=== PATIENT | female | born 1960 | race Caucasian/White ===

== ENCOUNTER 2023-09-15 12:24 | Outpatient (OUT) | payer MEDICAID, SELFPAY ==
--- NOTE | 2023-09-15 12:28 | MR_ITS ---
The [address] [address] Patient Name: JHONY IYER MRN: [id number] date: 1960 Sex: F Assigned Patient Location: MRI Current Patient Location: MRI Accession/Order Number: [id number] Exam Date: 09/15/2023 12:45 Report Date: 09/15/2023 15:08 At the request of: CELESTE SANTOS Procedure: MR head/brain wo/w con EXAM: MR head/brain wo/w con CLINICAL INDICATION: multiple sclerosis G35 COMPARISON: MRI brain 10/13/2021. TECHNIQUE/PROTOCOL: Standard pre and postcontrast MS protocol brain MRI performed. CONTRAST: 15 mL of Dotarem. FINDINGS: Multiple nonenhancing supratentorial hyperintense T2/FLAIR periventricular and subcortical white matter foci have not substantially changed in size, number, or signal characteristics since 10/13/2021. Several of these demonstrates hypointense T1 signal. No new foci or interval corpus callosum volume loss. No restricted diffusion, extra-axial fluid collection, hydrocephalus, midline shift, or other mass effect. Intracranial flow voids are maintained. Unchanged mild to moderate symmetric global volume loss without lobar predominance. Commensurate ventricular system caliber prominence. No abnormal leptomeningeal or dural enhancement. Normal marrow signal. No soft tissue abnormalities. Paranasal sinuses and mastoid air cells are well-aerated. MR/MR head/brain wo/w con IMPRESSION: Multiple nonenhancing supratentorial hyperintense T2/FLAIR white matter foci, in keeping with history of multiple sclerosis, have not substantially changed since 10/13/2021. No new foci, restricted diffusion, or abnormal intracranial enhancement. Electronically authenticated by: SANDRA MCDONALD Date: 09/15/2023 15:08
--- NOTE | 2023-09-15 12:31 | MR_ITS ---
[address] [address] Patient Name: JHONY IYER MRN: [id number] date: 1960 Sex: F Assigned Patient Location: MRI Current Patient Location: MRI Accession/Order Number: [id number] Exam Date: 09/15/2023 12:45 Report Date: 09/15/2023 15:25 At the request of: CELESTE SANTOS Procedure: MR cervical spine wo/w con EXAM: MR cervical spine wo/w con CLINICAL INDICATION: multiple sclerosis G35 COMPARISON: MRI cervical spine 10/13/2021. TECHNIQUE/PROTOCOL: Standard protocol cervical spine pre and post contrast MRI performed. FINDINGS: Spinal Cord: Normal in caliber. The ill-defined scattered hyperintense T2/STIR signal in the cord from C2 to C5 has not substantially changed since 10/13/2021. No abnormal cord enhancement or discrete new cord signal abnormality. Epidural Hematoma: None. Alignment: Normal cervical spine alignment and craniocervical junction. Marrow Signal: Normal. Vertebral Body Heights: Maintained. Paraspinal Soft Tissues: Normal. Neck Soft Tissues: Normal. Spondylotic Changes: Multilevel spondylotic changes include diffuse disc desiccation and varying degrees of intervertebral disc height loss, osteophytic ridging, and facet/uncovertebral joint hypertrophy. C2-C3: No disc bulge or herniation. No high-grade spinal canal or foraminal narrowing. C3-C4: Disc osteophyte complex effaces the ventral thecal sac and flattens the ventral spinal cord surface. Moderate spinal canal narrowing. Advanced bilateral foraminal narrowing is contributed to by uncovertebral and facet joint hypertrophy. C4-C5: Slight disc osteophyte complex contacts the left ventral spinal cord surface. Mild spinal canal narrowing. Mild right and advanced left foraminal narrowing is contributed to by uncovertebral and facet joint hypertrophy. C5-C6: Disc osteophyte complex indents the ventral thecal sac. Mild spinal canal narrowing. Right foramen is patent. Mild left foraminal narrowing is contributed to by uncovertebral and facet joint hypertrophy. C6-C7: Slight disc osteophyte complex indents the ventral thecal sac. Mild spinal canal narrowing. Mild right and advanced left foraminal narrowing is contributed to by uncovertebral and facet joint hypertrophy. C7-T1: No disc bulge or herniation. No high-grade spinal canal or foraminal narrowing. MR/MR cervical spine wo/w con IMPRESSION: 1. The ill-defined scattered hyperintense T2/STIR signal in the cord from C2 to C5 has not substantially changed since 10/13/2021. No abnormal cord enhancement or discrete new cord signal abnormality. 2. Multilevel spondylotic changes without high-grade spinal canal narrowing at any cervical level. 3. Spinal canal narrowing is at most moderate at C3-C4. 4. Foraminal narrowing is advanced bilaterally at C3-C4 as well as on the left at C4-C5 and C6-C7, contributed to by uncovertebral and facet hypertrophy. Electronically authenticated by: SANDRA MCDONALD Date: 09/15/2023 15:25
[2023-09-15 12:49] LABS: Estimated GFR (African America >60 (>=60); Estimated GFR (Non-African Ame >60 (>=60)
== END 2023-09-15 12:25 | disposition home or self-care (01) ==
LOC: MRI 12:24
PROVIDERS: PCP Family Medicine; Visit Provider Nurse Practitioner Family
DX: G35 Multiple sclerosis (principal)
CPT/HCPCS: 36415; 70553; 72156; 82565; 84520; A9575

== ENCOUNTER 2023-10-13 10:20 | Emergency (ER) | payer OTHER, SELFPAY ==
[2023-10-13 10:25] VITALS: BP 142/80; PULSE 66; TEMP 36.4; O2SAT 99; BMI 25.7
--- NOTE | 2023-10-13 10:55 | ED_ITS ---
HPI HPI - General Adult General Chief complaint: Extremity Injury, Lower Stated complaint: LOWER EXTREMITY INJURY Time Seen by Provider: 10/13/23 10:24 Source: patient Mode of arrival: Wheelchair History of Present Illness HPI narrative: Patient presents to ED complaining of right lower extremity injury. She said on Wednesday evening she cut her lower extremity on a box. She put a dressing on it at home and wrapped it with an Kelvin bandage but she said sometimes it still bleeding and she was not sure if it needed stitches or anything else so she came in for evaluation.She has a history of MS and she does not ambulate. She uses a wheelchair. She has lower extremity lymphedema which is chronic.Other than the laceration evaluation she does not have any other complaints today. Related Data Previous Rx's ?Medication ?Instructions ?Recorded doxycycline hyclate 100 mg capsule 100 mg PO BID 7 days #14 caps 10/13/23 Allergies Allergy/AdvReac Type Severity Reaction Status Date / Time No Known Drug Allergies Allergy Verified 10/13/23 10:32 Opioid HPI Opioid Management Most Recent Opioid Data: No Data to Display Review of Systems ROS Status of ROS 10 or more systems reviewed and unremark able except as noted in history and below Exam Narrative Exam Narrative: General: alert, no acute distress Cardiovascular: regular rate and rhythm, normal peripheral perfusion. Respiratory: Lungs CTA, respirations non labored. Extremities: no deformity, no trauma. Neurological: oriented x 4, LOC appropriate for age. Patient has of lower extremity laceration on the right lower extremity at the ankle and the anterior medial portion.Bleeding slightly after the dressing was removed. Lower extremity edema which is chronic for her.Mild redness but no signs of major cellulitis. Constitutional Vital Signs, click to edit/add: Last Vital Signs Temp 97.6 F 10/13/23 10:25 Pulse 66 10/13/23 10:25 Resp 20 10/13/23 10:25 BP 142/80 H 10/13/23 10:25 Pulse Ox 99 10/13/23 10:25 O2 Del Method Room Air 10/13/23 10:25 Course Course Hospital Course: Dressing was removed. I had to use normal saline to wet the dressing to get it unstuck from the wound. New dressing was applied with a Vaseline gauze. Vital Signs Vital signs: Vital Signs Temperature 97.6 F 10/13/23 10:25 Pulse Rate 66 05/01/24 10:25 Respiratory Rate 20 10/13/23 10:25 Blood Pressure 142/80 H 10/13/23 10:25 Pulse Oximetry 99 10/13/23 10:25 Oxygen Delivery Method Room Air 10/13/23 10:25 Temperature 97.6 F 10/13/23 10:25 Pulse Rate 66 10/13/23 10:25 Respiratory Rate 20 10/13/23 10:25 Blood Pressure 142/80 H 10/13/23 10:25 Pulse Oximetry 99 10/13/23 10:25 Oxygen Delivery Method Room Air 10/13/23 10:25 Medical Decision Making MDM Narrative Medical decision making narrative: Patient has a laceration which is too old to repair with sutures. A new dressing was applied with Vaseline gauze and an Kelvin wrap. I will refer her on to wound care clinic for further management of her laceration.No evidence of acute cellulitis at this time but she is high risk with her lymphedema and MS history therefore I will send her home on prophylactic antibiotics. Differential Diagnosis Differential Diagnosis: Laceration skin tear cellulitis Medical Records Medical records reviewed: Yes I reviewed the patient's medical records Discharge Plan Discharge Stand Alone Forms: Portal Instructions Chief Complaint: Extremity Injury, Lower Clinical Impression: Skin tear Patient Disposition: Home, Self-Care Time of Disposition Decision: 10:58 Mode of Transportation: Private Vehicle Prescriptions / Home Meds: New doxycycline hyclate 100 mg capsule 100 mg PO BID 7 Days Qty: 14 0RF Print Language: Palestinian Instructions: Acute Wounds (ED) Referrals: ERASTO FAY [Primary Care Provider] - 1 week Robert Castelan [Physician] - As soon as possible
[2023-10-13] MEDS: SODIUM CHLORIDE 0.9% IRRIG SOLUTION 1,000 ML BOTTLE 1000 ML IRR (11:15)
== END 2023-10-13 11:20 | disposition home or self-care (01) ==
PROVIDERS: Emergency Provider Emergency Medicine; PCP Family Medicine
DX: S81.811A Laceration without foreign body, right lower leg, initial encounter (principal); W45.8XXA Other foreign body or object entering through skin, initial encounter; G35 Multiple sclerosis
CPT/HCPCS: 99283

== ENCOUNTER 2023-10-15 11:33 | Outpatient (OUT) | payer OTHER, SELFPAY ==
--- OUTSIDE RECORDS SUMMARY | 2023-10-15 11:55 | XMS_ITS | CCD ---
Author Organization [facility] Care Team Providers Care Mangle Tender Name Role Phone Mukesh Martínez Unavailable KIMO ROD Attending Unavailable KIMO ROD Admitting Unavailable ERASTO FAY Primary Care Unavailable [facility] [place] [place]OS Attending Unavailable [facility] [place] [place] Admitting Unavailable FLAXTON, DR EDDY Contreras Consulting Unavailable PEREZ ., DR OK Johnson Primary Care Unavailable MIS, DR RIOS Consulting Unavailable MIS, DR RIOS Consulting Unavailable [facility] [place] Admitting Unavailable PEREZ ., DR OK Johnson Primary Care Unavailable [facility] [place]OS Attending Unavailable JUAN, DR FERNANDO Rich Consulting Unavailable SAL Leal Attending Provider MD Erasto Fay Primary Care Provider Jennifer Leal Admitting Unavailable Jennifer Leal Attending Unavailable Erasto Fay Primary Care Unavailable Erasto Fay Attending Unavailable Erasto Fay Attending Unavailable Erasto Fay Attending Unavailable Erasto Fay Attending Unavailable Allergies Allergy Classification Reported Allergen(s) Allergy Type Date of Onset Reaction(s) Facility (2 sources) teriflunomide Drug Allergy 02-20-20 Unknown, [facility] (1 source) muscle relaxors not allowed Propensity to adverse reactions Unknown Sn[facility] Other (1 source) teriflunomide Drug Allergy 02-20-20 [facility] (1 source) No Known Medication Allergies; Translations: [No Known Medication Allergies] Propensity to adverse reactions (disorder) [facility] Medications Current Medications Medication Drug Class(es) Dates Sig (Normalized) Sig (Original) acetaminophen 325 mg oral tablet (1 source) Start: 02-22-2017 Acetaminophen (Tylenol) 325 mg Tablet Active 650 MG PO As Directed February 22, 2017 12:00am acetaminophen 325 mg / oxyCODONE hydrochloride 5 mg oral tablet (1 source) Opioid Agonist Start: 02-22-2017 Oxycodone-Acetamin ophen (Percocet) 5-325 mg Tablet Active 5 - 325 MG PO As Directed February 22, 2017 12:00am alendronic acid 70 mg oral tablet (1 source) Bisphosphonate take 1 tablet by mouth every week Alendronate Sodium 70 MG TAKE ONE TABLET BY MOUTH ONCE WEEKLY Oral for 84 Days Active amitriptyline hydrochloride 25 mg oral tablet (1 source) Tricyclic Antidepressant take 1 tablet by mouth every twenty-four hours Amitriptyline HCl 25 MG 1 tablet at bedtime Orally Once a day Active atropine sulfate 0.025 mg / diphenoxylate hydrochloride 2.5 mg oral tablet (1 source) Anticholinergic, Cholinergic Muscarinic Antagonist, Antidiarrheal Start: 02-22-2017 Diphenoxylate-Atro pine (Lomotil) 2.5-0.025 mg Tablet Active 2.5 MG PO As Directed February 22, 2017 12:00am 12 hr dalfampridine 10 mg extended release oral tablet (2 sources) Potassium Channel Ruiz Start: 02-22-2017 take 1 tablet by mouth every twelve hours Dalfampridine (Ampyra) 10 mg Tablet Extended Release 12 Hr Active 10 MG PO Every 12 hours at 1000 & 2200 February 22, 2017 12:00am take 1 tablet by mouth every twe lve hours Ampyra 10 MG 1 tablet Orally Twice a day Active diphenhydrAMINE hydrochloride 25 mg oral capsule (1 source) Histamine-1 Receptor Antagonist Start: 02-22-2017 Diphenhydramine Hcl (Benadryl) 25 mg Capsule Active 25 MG PO As Directed February 22, 2017 12:00am ergocalciferol 1.25 mg oral capsule (1 source) Provitamin D2 Compound Start: 02-22-2017 take 1 capsule by mouth every week Ergocalciferol (Vitamin D2) (Vitamin D2) 50,000 unit Capsule Active 77496 UNITS PO every week February 22, 2017 12:00am furosemide 20 mg oral tablet (2 sources) Loop Diuretic Start: 02-22-2017 take 20 mg by mouth once daily in the morning Furosemide Active 20 MG PO Every morning February 22, 2017 12:00am take 1 tablet by mouth every oth er day Lasix 20 mg 1 tablet Orally every other day for 90 day(s) Not-Taking levothyroxine sodium 0.075 mg oral tablet (1 source) l-Thyroxine take 1 tablet by mouth once daily in the morning Levothyroxine Sodium 75 MCG 1 tablet on an empty stomach in the morning Orally Once a day Active loperamide hydrochloride 2 mg oral tablet (1 source) Opioid Agonist take 1 tablet by mouth four times daily as needed Loperamide A-D 2 MG 1 tablet as needed Orally Four times a day Active 24 hr metoprolol succinate 25 mg extended release oral tablet (1 source) beta-Adrenergic Ruiz take 1 tablet by mouth every twenty-four hours Metoprolol Succinate ER 25 MG 1 tablet Orally Once a day Active omeprazole 20 mg delayed release oral capsule (1 source) Proton Pump Inhibitor Start: 02-23-20 17 take 20 mg by mouth once daily in the morning Omeprazole Active 20 MG PO Every morning February 22, 2017 12:00am potassium chloride 20 meq extended release oral tablet (1 source) take 1 tablet by mouth every twenty-four hours Potassium Chloride ER 20 MEQ 1 tablet with food Orally Once a day Active Super Calcium 600 + D 400 600-400 MG-UNIT (1 source) take 400-600 tablets by mouth twice daily Super Calcium 600 + D 400 600-400 MG-UNIT TAKE ONE TABLET BY MOUTH TWICE A DAY Oral for 90 Days Active valACYclovir 500 mg oral tablet (1 source) Herpesvirus Nucleoside Analog DNA Polymerase Inhibitor, Herpes Simplex Virus Nucleoside Analog DNA Polymerase Inhibitor, Herpes Zoster Virus Nucleoside Analog DNA Polymerase Inhibitor Start: 02-23-20 17 take 500 mg by mouth once daily in the morning Valacyclovir Active 500 MG PO Every morning February 22, 2017 12:00am Vitamin C 500 MG (1 source) take 1 tablet by mouth once daily Vitamin C 500 MG 1 tablet Orally Once a day Active Vitamin D3 25 MCG (1000 UT) (1 source) take 1 tablet by mouth once daily Vitamin D3 25 MCG (1000 UT) TAKE ONE TABLET BY MOUTH ONCE DAILY Oral for 90 Days Active Problems Problem Classification Problem Date Documented Da te Episodic/Chronic Multiple sclerosis (6 sources) Multiple sclerosis; Translations: [Multiple sclerosis] Onset: 10-17-2021 Resolved: 11-05-2021 Chronic Nutritional deficiencies (1 source) Vitamin D deficiency; Translations: [Vitamin D deficiency, unspecified] Chronic Spondylosis; intervertebral disc disorders; other back problems (2 sources) Cervical spondylosis without myelopathy; Translations: [Spondylosis without myelopathy or radiculopathy, cervical region] Onset: 11-05-2021 Resolved: 11-05-2021 Chronic Unclassified (1 source) Other malaise; Translations: [Other malaise] Onset: 12-08-2022 Results Test Name Value Interpretation Reference Range Facility RAD - MRI Reporton RAD - MRI Report [id number] #1.00TIFF [facility] RAD - MRI Report [id number] #1.00TIFF [facility] Consultation Noteon 09-02-19 Consultation Note [id number] #1.00TIFF [facility] Consultation Noteon 06-03-20 Consultation Note [id number] 5#1.00TIFF [facility] Consultation Noteon 04-29-20 Consultation Note [id number] 6#1.00TIFF [facility] Ambulatory Visit Summaryon 1 06-26-2022 Ambulatory Visit Summary TERESITA BAKER :1960 Visit Date:04/26/2023 Ambulatory Visit Instructions Your Diagnosis HTN (hypertension) Multiple sclerosis Nonsmoker Urge incontinence Wheelchair dependent Fecal incontinence Hypothyroid Your Care Team Attending Physician - Erasto Fay MD Primary Care Physician - Erasto Fay MD This Is Your Medications List alendronate (alendronate 70 mg Tab) atropine-diphenoxyla te (Lomotil 0.025 mg-2.5 mg Tab) levothyroxine (Synthroid 75 mcg Tab) metoprolol (metoprolol 25 mg ER Tab) Contact prescribing physician if questions or concerns cholecalciferol (cholecalciferol 2000 intl units oral capsule) dalfampridine (Ampyra) Procedures Performed Urodynamics (02/22/2018), Cystoscopy. Discharge Vitals Temperature (Temporal Artery) 36.5 ?C Heart Rate (Peripheral) 72 Respiratory Rate 16 Blood Pressure 118/70 Height 165.1 cm Height 65 in What to do next Scheduled Follow-Up Appointments Wednesday. 2023 10:00 AM EDT With: Caly DANIELS, Erasto Adam Where: [facility] Office/Clini c Noteon 04-26-2023 [facility] Office/Clinic Note HPI Staff Teresita is a 63 year old female presenting for 3 month follow up MS & htn Patient is here for follow up on hypertension. How often are you checking your blood pressure? ocasionally home health nurse will check it What are your average readings? normal _ Yearly BMP:09/14/22 _ due: refused History of Present Illness - Here for follow up. - Needs refills on meds. - No changes Review of Systems PHQ Score Initial Depression Screen Score: 0 SCORE Physical Exam Vitals & Measurements T: 36.5 ?C(Temporal Artery) HR: 72(Peripheral) RR: 16 BP: 118/70 SpO2: 99% HT: 65 in HT: 165.1 cm General: alert, no acute distress ENMT: oral mucosa moist, Cardiovascular: regular rate and rhythm, normal peripheral perfusion Respiratory: Lungs CTA, respirations non labored Extremities: no deformity, no trauma Neurological: oriented x 4, LOC appropriate for age, CN II-XII intact, speech normal, Minimal movement of B/L legs. Contracted R hand, Wheelchair bound Abdomen: Soft, Nontender, Non-distended, + BS Assessment/Plan 1. HTN (hypertension) (I10: Essential (primary) hypertension) - At goal. - No issues at this time. - Follow up 6 months Ordered: Body Mass Index (BMI) documented 3008F Current tobacco non-user 1036F Depression Screening Negative 3352F Influenza immunization status assessed 1030F Most recent diastolic blood pressure <80 mm Hg 3078F Systolic BP <130 mm Hg (Most Recent) 3074F 2. Multiple sclerosis (G35: Multiple sclerosis) - Stable. - Wheelchair bound - Following with RUBEN Ordered: Body Mass Index (BMI) documented 3008F Current tobacco non-user 1036F Depression Screening Negative 3352F Influenza immunization status assessed 1030F Most recent diastolic blood pressure <80 mm Hg 3078F Systolic BP <130 mm Hg (Most Recent) 3074F 3. Nonsmoker (Z78.9: Other specified health status) - Please continue to not smoke Ordered: Body Mass Index (BMI) documented 3008F Current tobacco non-user 1036F Depression Screening Negative 3352F Influenza immunization status assessed 1030F Most recent diastolic blood pressure <80 mm Hg 3078F Systolic BP <130 mm Hg (Most Recent) 3074F 4. Urge incontinence (N39.41: Urge incontinence) - Will do incontinence supplies at this time. 5. 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 Fecal incontinence (R15.9: Full incontinence of feces) - Will do supplies. - No issues at this time. 7. Hypothyroid (E03.9: Hypothyroidism, unspecified) - TSH is WNL at last labs. - NO symptoms at this time. - Will recheck in 6 months. Orders: alendronate, See Instructions, TAKE ONE TABLET BY MOUTH ONCE WEEKLY, # 12 EA, Refills(s) 0, Pharmacy: [facility], 165.1, cm, 04/26/23 9:00:00 EST, Height/Length Dosing atropine-diphenoxyla te, 1 tab(s), Oral, BID Diarrhea, 60 tab(s), Refill(s) 1, prn constipation, [facility], 165.1, cm, 04/26/23 9:00:00 EST, Height/Length Dosing levothyroxine, 75 mcg, Oral, Daily, # 90 tab(s), Refills(s) 1, Pharmacy: [facility], 165.1, cm, 04/26/23 9:00:00 EST, Height/Length Dosing metoprolol, 25 mg = 1 tab(s), Oral, Daily, # 90 tab(s), Refills(s) 1, Pharmacy: [facility], 165.1, cm, 04/26/23 9:00:00 EST, Height/Length Dosing Follow-up No qualifying data available Problem List/Past Medical History Ongoing Candidiasis of skin and nail Fecal incontinence H/O urethral stricture Herpes zoster History of recurrent UTIs HTN (hypertension) Hypothyroid Lymphedema Multiple sclerosis Neurogenic bladder Osteoporosis Sleep disorder Urge incontinence Vitamin D deficiency Wheelchair dependent Historical No qualifying data Procedure/Surgical History Urodynamics (02/22/2018), Cystoscopy. Medications alendronate 70 mg Tab, See Instructions Ampyra, 10 mg, Oral, BID cholecalciferol 2000 intl units oral capsule, 50 mcg= 1 cap(s), Oral, Daily Lomotil 0.025 mg-2.5 mg Tab, 1 tab(s), Oral, BID, PRN, 1 refills metoprolol 25 mg ER Tab, 25 mg= 1 tab(s), Oral, Daily, 1 refills Synthroid 75 mcg Tab, 75 mcg, Oral, Daily, 1 refills Allergies No Known Medication Allergies Social History Tobacco Former smoker, quit more than 30 days ago Tobacco Use:. Never Smokeless Tobacco Use:. Cigarettes, 04/26/2023 Family History Heart disease: Father. Hypertension: Mother. Stroke: Father. Immunizations Vaccine Date Status Comments SARS-CoV-2 mRNA (tokennethnameran 5y-11y) vac - Not Given Postpone due to refusal [facility] Comment on above: Result Comment: Elec tronically Signed By: Clay DANIELS, Erasto Adam\.br\Date and Time Signed: 04/26/23 09:21 EST Retail - Clinical Noteon Retail - Clinical Note [id number] #1.00TIFF [facility] Retail - Clinical Note [id number]# 1.00TIFF [facility] Interdisciplinary Note - Soc ial Workeron 04-05-2023 Interdisciplinary Note - Concrete Puddler This SW reached out to patient today to discuss her need for some resources and assistance. Per patient, she is in need of a CHARGING MACHINE OPERATOR but she was cut off by Medicaid and isn't able to get one. She states that she has had Medicaid since the and had been getting a CHARGING MACHINE OPERATOR but then it stopped. She is current with [facility] and her child welfare caseworker is Christiane Jimenez ([phone]). She states that Christiane is trying to find a CHARGING MACHINE OPERATOR for her at this time. SW tried to reach out to Christiane to see if there was anything she needed from the office in order to assist with arranging these services, however there was no answer and a voicemail was not able to be left. SW will remain available. [facility] Consultation Noteon 03-16-20 Consultation Note [id number]#1 .00CD:127 [facility] 2022 Home Health Records [id number] #1.00CD:127 [facility] Retail - Clinical Noteon Retail - Clinical Note [id number] #1.00CD:127 [facility] Consultation Noteon 01-19-20 Consultation Note [id number] #1.00CD:127 [facility] 2022 Home Health Records [id number] #1.00CD:127 [facility] Family Medicine Office/Clini c Noteon 12-31-2022 Family Medicine Office/Clinic Note Chief Complaint follow up MS HPI Staff Lo is a 62 year old female patient that is presenting to the office for a three month follow up for pain for MS Cannot weight the patient due to confined to wheelchair and cannot stand or walk Pain characteristics: Pain location: just sore cushion broke on her chair getting a bed sore in that area Intensity:12/21 Onset: has MS pain is constant Medication used: nothing anymore she basically ignores her pain questions/concerns: none Needs all her meds refilled except alendronate History of Present Illness Teresita Baker is a 62-year-old female who presents today for a follow-up evaluation. Her wheelchair seat broke and she has not called the office yet because her foot rest is breaking and the foam is not working all the time. Her nurse took her wheelchair out to wash it with a towel and it went all out. She has been sitting on her wheelchair for 6 to 7 days and she developed a bed sore. It is not scabbing over, but it is getting bigger and worse. She has a home health nurse and she does not think that she needs to get into wound care. Her nurse put a Band-Aid on it to dry it our a little bit. She can lay on her side and get off, but in the middle of the night, she still moves. As long as she can keep herself up, she is okay. Her butt area hurts when she sits a certain way. She put Neosporin on it a couple of days ago and wears a diaper on top of it most of the time. This morning she did not put a diaper on, just wearing a pad. She went to therapy. She was diagnosed with MS for 40 years. She has bilateral leg pitting edema and she pumps her legs every day. She wears her ALIDA hose. She has been trying to get a dentist to do surgery. She has broken teeth and she needs surgery. She was told that they cannot do it because she has MS. Review of Systems PHQ Score Initial Depression Screen Score: 0 Physical Exam Vitals & Measurements T: 36.6 ?C(Oral) HR: 68(Peripheral) RR: 14 BP: 124/72 SpO2: 96% HT: 65 in HT: 165.1 cm General: alert, no acute distress. Cardiovascular: regular rate and rhythm, normal peripheral perfusion. Extremities: no deformity, no trauma, +2 pitting edema bilaterally. Musculoskeletal: wheelchair bound. Neurological: oriented x 4, LOC appropriate for age, CN II-XII intact, motor strength equal & normal bilaterally, speech normal Assessment/Plan 1. Multiple sclerosis (G35: Multiple sclerosis) Patient is stable. No new issues at this time. Patient is following with neurology. Patient just finished with physical therapy. Discussed needs for wheelchair repair or getting a new wheelchair. Discussed how this helps her with mobility and that the smaller power ones works so that fits in her house. 2. Wheelchair dependent (Z99.3: Dependence on wheelchair) As above. 3. HTN (hypertension), benign (I10: Essential (primary) hypertension) Patient is at goal at this time. We will continue to monitor. 4. Urge incontinence (N39.41: Urge incontinence) No other issues at this time. As noted, we refilled medications today and we will keep the patient on an every 3 months to make sure that we are continuing to stay up on all of patient's care. Also reviewed labs and at this time, patient's labs are completely normal. Portions of this record may have been created with voice recognition artificial intelligence software, specifically [employer], [employer] and or [employer]. Substitutions may have occurred due to the inherent limitations of voice recognition and artificial intelligence software. Documentation services were performed after patient or guardian consented to allow [employer] to record this visit. RAYSHAWN market research specialist and provider reviewed before signing. RAYSHAWN: Gala Simmons Follow-up No qualifying data available Problem List/Past Medical History Ongoing Candidiasis of skin and nail Fecal incontinence H/O urethral stricture Herpes zoster History of recurrent UTIs HTN (hypertension) Hx of thyroid disease Hypothyroid Lymphedema Multiple sclerosis Neurogenic bladder Osteoporosis Sleep disorder Urge incontinence Vitamin D deficiency Wheelchair dependent Historical No qualifying data Procedure/Surgical History Urodynamics (02/22/2018), Cystoscopy. Medications alendronate 70 mg Tab, 70 mg= 1 tab(s), Oral, qWeek Ampyra, 10 mg, Oral, BID cholecalciferol 2000 intl units oral capsule, 50 mcg= 1 cap(s), Oral, Daily Lomotil 0.025 mg-2.5 mg Tab, 1 tab(s), Oral, BID, PRN, 1 refills metoprolol 25 mg ER Tab, 25 mg= 1 tab(s), Oral, Daily, 1 refills Synthroid 75 mcg Tab, 75 mcg, Oral, Daily, 1 refills Allergies No Known Medication Allergies Social History Tobacco Former smoker, quit more than 30 days ago Tobacco Use:. Never Smokeless Tobacco Use:. Cigarettes, 12/29/2022 Family History Heart disease: Father. Hypertension: Mother. Stroke: Father. Immunizations Vaccine Date Status (more content not included)... Normal [facility] Comment on above: Result Comment: Elec tronically Signed By: Erasto Fay MD\.br\Date and Time Signed: 12/31/22 15:18 EDT\.br\Electronically Co-Signed By: Gala Simmons.br\Date and Time Co-Signed: 12/29/22 14:55 EDT Retail - Clinical Noteon Retail - Clinical Note [id number] #1.00CD:127 Normal [facility] Ambulatory Visit Summaryon 0 12-29-2022 Ambulatory Visit Summary TERESITA BAKER :1960 Visit Date:12/29/2022 Ambulatory Visit Instructions Your Diagnosis Multiple sclerosis Wheelchair dependent HTN (hypertension), benign Urge incontinence Your Care Team Attending Physician - Erasto Fay MD Primary Care Physician - Erasto Fay MD This Is Your Medications List alendronate (alendronate 70 mg Tab) atropine-diphenoxyla te (Lomotil 0.025 mg-2.5 mg Tab) cholecalciferol (cholecalciferol 2000 intl units oral capsule) levothyroxine (Synthroid 75 mcg Tab) metoprolol (metoprolol 25 mg ER Tab) Contact prescribing physician if questions or concerns dalfampridine (Ampyra) Procedures Performed Urodynamics (02/22/2018), Cystoscopy. Discharge Vitals Temperature (Oral) 36.6 ?C Heart Rate (Peripheral) 68 Respiratory Rate 14 Blood Pressure 124/72 Height 165.1 cm Height 65 in What to do next Scheduled Follow-Up Appointments Wednesday 1:20 PM EDT With: Erasto Fay MD Where: [facility] [place] Normal [facility] Family Medicine Office/Clini c Noteon 12-29-2022 Family Medicine Office/Clinic Note Chief Complaint follow up MS HPI Staff Teresita is a 62 year old female patient that is presenting to the office for a three month follow up for pain for MS Cannot weight the patient due to confined to wheelchair and cannot stand or walk Pain characteristics: Pain location: just sore cushion broke on her chair getting a bed sore in that area Intensity:12/21 Onset: has MS pain is constant Medication used: nothing anymore she basically ignores her pain questions/concerns: none Needs all her meds refilled except alendronate History of Present Illness Teresita Baker is a 62-year-old female who presents today for a follow-up evaluation. Her wheelchair seat broke and she has not called the office yet because her foot rest is breaking and the foam is not working all the time. Her nurse took her wheelchair out to wash it with a towel and it went all out. She has been sitting on her wheelchair for 6 to 7 days and she developed a bed sore. It is not scabbing over, but it is getting bigger and worse. She has a home health nurse and she does not think that she needs to get into wound care. Her nurse put a Band-Aid on it to dry it our a little bit. She can lay on her side and get off, but in the middle of the night, she still moves. As long as she can keep herself up, she is okay. Her butt area hurts when she sits a certain way. She put Neosporin on it a couple of days ago and wears a diaper on top of it most of the time. This morning she did not put a diaper on, just wearing a pad. She went to therapy. She was diagnosed with MS for 40 years. She has bilateral leg pitting edema and she pumps her legs every day. She wears her ALIDA hose. She has been trying to get a dentist to do surgery. She has broken teeth and she needs surgery. She was told that they cannot do it because she has MS. Review of Systems PHQ Score Initial Depression Screen Score: 0 Physical Exam Vitals & Measurements T: 36.6 ?C(Oral) HR: 68(Peripheral) RR: 14 BP: 124/72 SpO2: 96% HT: 65 in HT: 165.1 cm General: alert, no acute distress. Cardiovascular: regular rate and rhythm, normal peripheral perfusion. Extremities: no deformity, no trauma, +2 pitting edema bilaterally. Musculoskeletal: wheelchair bound. Neurological: oriented x 4, LOC appropriate for age, CN II-XII intact, motor strength equal & normal bilaterally, speech normal Assessment/Plan 1. Multiple sclerosis (G35: Multiple sclerosis) Patient is stable. No new issues at this time. Patient is following with neurology. Patient just finished with physical therapy. Discussed needs for wheelchair repair or getting a new wheelchair. Discussed how this helps her with mobility and that the smaller power ones works so that fits in her house. 2. Wheelchair dependent (Z99.3: Dependence on wheelchair) As above. 3. HTN (hypertension), benign (I10: Essential (primary) hypertension) Patient is at goal at this time. We will continue to monitor. 4. Urge incontinence (N39.41: Urge incontinence) No other issues at this time. As noted, we refilled medications today and we will keep the patient on an every 3 months to make sure that we are continuing to stay up on all of patient's care. Also reviewed labs and at this time, patient's labs are completely normal. Portions of this record may have been created with voice recognition artificial intelligence software, specifically [employer], [employer] and or [employer]. Substitutions may have occurred due to the inherent limitations of voice recognition and artificial intelligence software. ATTESTATION: Documentation services were performed after patient or guardian consented to allow [employer] to record this visit. RAYSHAWN market research specialist and provider reviewed before signing. RAYSHAWN: Gala Simmons Follow-up No qualifying data available Problem List/Past Medical History Ongoing Candidiasis of skin and nail Fecal incontinence H/O urethral stricture Herpes zoster History of recurrent UTIs HTN (hypertension) Hx of thyroid disease Hypothyroid Lymphedema Multiple sclerosis Neurogenic bladder Osteoporosis Sleep disorder Urge incontinence Vitamin D deficiency Wheelchair dependent Historical No qualifying data Procedure/Surgical History Urodynamics (02/22/2018), Cystoscopy. Medications alendronate 70 mg Tab, 70 mg= 1 tab(s), Oral, qWeek Ampyra, 10 mg, Oral, BID cholecalciferol 2000 intl units oral capsule, 50 mcg= 1 cap(s), Oral, Daily Lomotil 0.025 mg-2.5 mg Tab, 1 tab(s), Oral, BID, PRN, 1 refills metoprolol 25 mg ER Tab, 25 mg= 1 tab(s), Oral, Daily, 1 refills Synthroid 75 mcg Tab, 75 mcg, Oral, Daily, 1 refills Allergies No Known Medication Allergies Social History Tobacco Former smoker, quit more than 30 days ago Tobacco Use:. Never Smokeless Tobacco Use:. Cigarettes, 12/29/2022 Family History Heart disease: Father. Hypertension: Mother. Stroke: Father. Immunizations Vaccine (more content not included)... Normal [facility] Comment on above: Result Comment: Elec tronically Signed By: Gala Simmons\.br\Date and Time Signed: 12/29/22 14:37 EDT\.br\Electronically Co-Signed By: Thiago MORALES, COAL PICKER-VEGETABLE FARMER, [facility] 2022 [facility] [id number] #[id number]:127 Normal [facility] MRI TSPINE WO W CONon 2021 MRI TSPINE WO W CON EXAMINATION: MRI TSPINE WO W CON HISTORY: Multiple sclerosis COMPARISON: No relevant comparison available. TECHNIQUE: Axial T1 and T2; Sagittal T1, T2, and STIR sequences. Images were performed without and with 16 ml Dotarem contrast. FINDINGS: CORD: Normal caliber, contour, and signal intensity. BONES: Normal alignment with no acute fracture, bone edema or spondylolisthesis. 20% anterior superior wedge compression fracture of T6. DISCS: Normal intervertebral disc PARASPINAL AREA: No visible mass. OTHER: Negative. No abnormal contrast enhancement. IMPRESSION: No focal or enhancing lesions identified within the thoracic spinal cord to suggest demyelination Electronically authenticated by: EDDY VIDES Date: 2021-10-17 17:03 Normal [facility] MRI BRAIN WO W CONon 022 MRI BRAIN WO W CON EXAMINATION: MRI BRAIN WO W CON HISTORY: Multiple sclerosis COMPARISON: MRI brain 05/31/2019 TECHNIQUE: A variety of imaging planes and parameters were utilized for visualization of suspected pathology. Images were performed without and with Dotarem contrast. FINDINGS: CEREBRUM: Multiple areas of increased T2 signal within the periventricular and subcortical deep white matter bilaterally, not appreciably changed. CEREBELLUM: No edema, hemorrhage, mass, acute infarction, or inappropriate atrophy. BRAINSTEM: No edema, hemorrhage, mass, acute infarction, or inappropriate atrophy. CSF SPACES: Ventricles, cisterns, and sulci are appropriate for age. No hydrocephalus, subarachnoid hemorrhage, or mass. SKULL: No mass or other significant visible lesion. SINUSES: Limited views demonstrate no significant mucosal thickening or fluid. ORBITS: Limited views are unremarkable. OTHER: No abnormal meningeal or parenchymal enhancement. IMPRESSION: 1. Multiple areas of T2 hyperintensity within the deep white matter consistent with a demyelinating process. No significant change since prior study. 2. No enhancement or restricted diffusion of these lesions to suggest active demyelination. Electronically authenticated by: FERNANDO MARTINEZ Date: 2021-10-13 15:00 Normal [facility] MRI CSPINE WO W CONon 2021 MRI CSPINE WO W CON EXAMINATION: MRI CSPINE WO W CON HISTORY: Multiple sclerosis COMPARISON: No relevant comparison available. TECHNIQUE: A variety of imaging planes and parameters were utilized for visualization of suspected pathology prior to and after intravenous Dotarem injection. FINDINGS: CRANIOCERVICAL AREA: Normal foramen magnum with no Chiari malformation. PARASPINAL AREA: Normal with no visible mass. BONES: No fracture, pars defect, or osseous lesion. CORD: Mild, abnormally increased T2 signal within the spinal cord extending from T2 to C6. CERVICAL DISC LEVELS: C2-C3: Early degenerative disc disease is present without focal protrusion or neural impingement. C3-C4: Marked central canal and moderate marked bilateral foramen narrowing. Moderate diffuse disc bulging and mild disc height reduction. Mild degenerative facet arthropathy. C4-C5: Marked central canal and moderate marked bilateral foramen narrowing. Moderate diffuse disc bulging eccentric to the left. Mild disc height reduction. Mild degenerative facet arthropathy. C5-C6: Moderate central canal and left foramen narrowing. Mild right foramen narrowing. Moderate diffuse disc bulging slightly eccentric to the left. Mild left facet arthropathy. C6-C7: Early degenerative disc disease is present without focal protrusion or neural impingement. C7-T1:. No significant disc/facet abnormality, spinal stenosis, or foraminal stenosis. IMPRESSION: 1. Abnormal signal within the cervical spinal cord from C2 to C6 which may be due to a demyelinating process or edema from cord compression given the multiple levels of moderate marked central canal narrowing. Electronically authenticated by: FERNANDO MARTINEZ Date: 2021-10-13 15:20 Normal [facility] Vital Signs Date Time Vital Sign Value Performing Clinician Anshul johnson 11-05-2021 12:00-0400 Body height 165.1 cm Mukesh Martínez Other [facility] Other 11-05-2021 12:00-0400 Body mass index (BMI) [Ratio] 26.62 kg/m2 Mukesh Martínez Other [facility] Other 11-05-2021 12:00-0400 Body weight 72.58 kg Mukesh Martínez Other [facility] Other Encounters Encounter Date Encounter Type Care Provider Facility Start: 10-19-2023 ambulatory Erasto Fay Facility :[facility] Start: 04-26-2023 End: 04-27-2023 ambulatory Erasto Fay Facility:[facility] Start: 03-30-2023 End: 03-31-2023 ambulatory Erasto Fay Facility:[facility] Start: 12-29-2022 End: 12-30-2022 ambulatory Erasto Fay Facility:[facility] Start: 12-08-2022 End: 12-08-2022 ambulatory Jennifer Leal Facility:[facility] Start: 12-08-2022 End: 12-08-2022 ambulatory MD Erasto Fay Work Phone: [facility] Work Phone: Start: 12-08-2022 End: 12-08-2022 Discharged Recurring MD Erasto Fay Work Phone: [facility] [address] Start: 09-30-2022 ambulatory KIMO ROD Facility :[facility] Start: 11-05-2021 End: 11-05-2021 ambulatory Mukesh Martínez Other [facility] Other Start: 11-05-2021 Office outpatient ne w 30 minutes Mukesh Martínez [facility] Start: 10-17-2021 End: 10-18-[address] DOCTOR PADRON Facility:[facility] Start: 10-13-2021 End: 10-14-[address] DOCTOR PADRON Facility:[facility] Payers Date Payer Category Payer Self-pay [id number] 1960 Unknown [id number] 2.16.84 [id number] 1960 Unknown [id number] 2.16.84 [id number] 1960 Unknown [id number] 2.16.84 [id number] 1960 Unknown [id number] 2.16.8 [id number] 1960 Unknown [id number] 2.16.8 [id number] 1960 Unknown [id number] 2.16.8 [id number] 1960 Unknown [id number] 2.16.8 [id number] 1957 Medicaid [id number] 2. 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 [facility] Other Evaluation note Note Date & Type Note Facility Evaluation note No assessment information availa [facility] Work Phone: History general Narrative - Reported Note Date & Type Note Facility History general Narrative - Reported Type Medical History multiple sclerosis Medical History [facility] Surgical History cyst removal Hospitalization History [facility] Other Summary Purpose Family History No Family History Records FoundNo Family History Records FoundNo Family History Records Found Advance Directives No Advanced Directives Records Found Advance Directive Response Recorded Date/ Time Advance Directives No February h2016 9:51am Chief Complaint and Reason for Visit Chief Complaint MK only;debility Additional Source Comments REASON FOR VISIT (unrecogniz ed section and content) Referred Jennifer May Joeflori rojelio [employer] INFORMATION SOURCE (unrecogn ized section and content) DATE CREATED AUTHOR 09/24/2022 [facility] DATE CREATED AUTHOR AUTHOR'S ORGANIZ ATION 12/21/2022 [facility] DATE CREATED AUTHOR AUTHOR'S ORGANIZ ATION 10/01/[address] [facility] Care Teams (unrecognized sec tion and content) Team Status: Active Member Role Status Dates Erasto Fay MD Primary Care Provider Active Team Status: Inactive Member Role Status Dates Jennifer Leal , COAL PICKER Attending Provider Active Erasto Fya MD Primary Care Provider Active Goals (unrecognized section and content) Goals may be documented in a n alternate section FOR RECORDS PERTAINING TO PATIENTS WHO ARE OR HAVE BEEN ENROLLED IN A CHEMICAL DEPENDENCY/SUBSTANCEABUSE PROGRAM, SOME INFORMATION MAY BE OMITTED. This clinical summary was aggregated from multiple sources. Caution should be exercised in using it in the provision of clinical care. This summary normalizes information from multiple sources, and as a consequence, information in this document may materially change the coding, format and clinical context of patient data. In addition, data may be omitted in some cases. CLINICAL DECISIONS SHOULD BE BASED ON THE PRIMARY CLINICAL RECORDS. [facility] [employer] [facility]. provides no warranty or guarantee of the accuracy or completeness of information in this document.
== END 2023-10-15 11:34 | disposition home or self-care (01) ==
LOC: WC 11:33
PROVIDERS: PCP Family Medicine; Visit Provider Podiatrist Foot & Ankle Surgery
DX: S81.801A Unspecified open wound, right lower leg, initial encounter (principal)
CPT/HCPCS: A6213; G0463

== ENCOUNTER 2023-11-01 11:46 | Outpatient (OUT) | payer OTHER, SELFPAY | END 2023-11-01 11:47 | disposition home or self-care (01) | LOC: WC 11:46 | PROVIDERS: PCP Family Medicine; Visit Provider Physician Assistant | DX: S81.801A Unspecified open wound, right lower leg, initial encounter (principal) | CPT/HCPCS: G0463 ==

== ENCOUNTER 2023-11-22 15:31 | Outpatient (OUT) | payer OTHER, SELFPAY | END 2023-11-22 15:32 | disposition home or self-care (01) | LOC: WC 15:31 | PROVIDERS: PCP Family Medicine; Visit Provider Physician Assistant | DX: S81.801A Unspecified open wound, right lower leg, initial encounter (principal) | CPT/HCPCS: A6213; G0463 ==

== ENCOUNTER 2023-12-13 16:00 | Outpatient (OUT) | payer OTHER, SELFPAY ==
--- OUTSIDE RECORDS SUMMARY | 2023-12-13 16:27 | XMS_ITS | CCD ---
Author Organization [facility] CliniSyga Care Team Providers Care Logistics Assistant Name Role Phone Mukesh Martínez Unavailable KIMO ROD Attending Unavailable KIMO ROD Admitting Unavailable ERASTO FAY Primary Care Unavailable [facility] [place] RIOS Attending Unavailable [facility] [place] RIOS Admitting Unavailable [place], DR EDDY Contreras Consulting Unavailable PEREZ ., DR OK Johnson Primary Care Unavailable MIS, DR RIOS Consulting Unavailable [facility] [place] RIOS Consulting Unavailable [facility] [place] DR RIOS Admitting Unavailable PEREZ ., DR [place] Johnson Primary Care Unavailable [facility] [place], DR RIOS Attending Unavailable ALEXJAMA, DR FERNANDO Rich Consulting Unavailable SAL Leal Attending Provider MD Erasto Fay Primary Care Provider Jennifer Leal Admitting Unavailable Jennifer Leal Attending Unavailable Erasto Fay Primary Care Unavailable Erasto Fay Attending Unavailable Erasto Fay Attending Unavailable Erasto Fay Attending Unavailable Erasto Fay Admitting Unavailable Erasto Fay Attending Unavailable Erasto Fay Attending Unavailable Erasto Fay Attending Unavailable Allergies Allergy Classification Reported Allergen(s) Allergy Type Date of Onset Reaction(s) Facility (2 sources) teriflunomide Drug Allergy 02-20-20 Unknown, [facility] (1 source) muscle relaxors not allowed Propensity to adverse reactions Unknown [facility] Other (1 source) teriflunomide Drug Allergy 02-20-20 [facility] Repository (1 source) No Known Medication Allergies; Translations: [No Known Medication Allergies] Propensity to adverse reactions (disorder) [facility] Repository Medications Current Medications Medication Drug Class(es) [...] D2) (Vitamin D2) 50,000 unit Capsule Active 77182 UNITS PO every week February 22, 2017 [...] Test Name Value Interpretation Reference Range Facility Consultation Noteon 11-15-19 Consultation Note [id number] #1.00TIFF Normal [facility] Ambulatory Visit Summaryon 0 10-19-2023 Ambulatory Visit Summary TERESITA BAKER :1960 Visit Date:10/19/2023 Ambulatory Visit Instructions Your Diagnosis HTN (hypertension) Multiple sclerosis Former smoker Hypothyroid Lymphedema Wheelchair dependent Fecal incontinence Your Care Team Attending Physician - Erasto Fay MD Primary Care Physician - Erasto Fay MD This Is Your Medications List alendronate (alendronate 70 mg Tab) atropine-diphenoxyla te (Lomotil 0.025 mg-2.5 mg Tab) levothyroxine (Synthroid 75 mcg Tab) metoprolol (metoprolol 25 mg ER Tab) [Image Removed: STOP]Stop taking these medications cholecalciferol (cholecalciferol 2000 intl units oral capsule) dalfampridine (Ampyra) Procedures Performed Urodynamics (02/22/2018), Cystoscopy. Discharge Vitals Temperature (Temporal Artery) 36.0 ?C Heart Rate (Peripheral) 62 Respiratory Rate 16 Blood Pressure 122/76 Height 165.1 cm Height 65 in What to do next Scheduled Follow-Up Appointments Wednesday 10:15 AM EDT With: Erasto Fay MD Where: [facility] [place] Normal [facility] CBC w/ Auto Diffon 4 Basophils/100 WBC (Bld) 0.7 % Normal 0.0-2.0 [facility] Comment on above: Performed By: #### 2 519633, 2730966, 8158638, 11441631, 46455085 ####[address] [address] Basophils/Leukocytes Auto (Bld) [Pure # fraction] 0.0 E9/L Normal 0.0-0.2 [facility] Comment on above: Performed By: #### 2 460487, 1047892, 3016722, 26274895, 59252958 ####[address] [address] Eosinophils (Bld) [#/Vol] 0.1 E9/L Normal 0.0-0.5 [facility] Comment on above: Performed By: #### 2 413116, 9962350, 6198467, 30597413, 17448285 ####[address] [address] Eosinophils/100 WBC (Bld) 2.5 % Normal 0.0-8.0 [facility] Comment on above: Performed By: #### 2 228177, 6912332, 5127005, 30244833, 48281525 ####[address] [address] Erythrocyte distribution width (RBC) [Ratio] 14.6 % High 10.9-14.2 [facility] Comment on above: Performed By: #### 2 232901, 4053138, 9513564, 66797777, 41871919 ####[address] [address] Hematocrit (Bld) [Volume fraction] 44.3 % Normal 34.0-46.0 [facility] Comment on above: Performed By: #### 2 045587, 5854627, 9820387, 07878261, 60614242 ####[address] [address] Hemoglobin (Bld) [Mass/Vol] 14.4 g/dL Normal 12.0-16.0 [facility] Comment on above: Performed By: #### 2 575894, 2866859, 7436110, 44817094, 76374525 ####[address] [address] Lymphocytes (Bld) [#/Vol] 1.0 E9/L Normal 1.0-4.0 [facility] Comment on above: Performed By: #### 2 457775, 5791715, 2541787, 33810542, 77366185 ####[place] [address] Lymphocytes/100 WBC (Bld) 18.4 % Normal 14.0-50.0 [facility] Comment on above: Performed By: #### 2 104885, 5643046, 8220109, 36878345, 58825710 ####[place] [address]57 MCH (RBC) [Entitic mass] 28.4 pg Normal 27.0-34.0 [facility] Comment on above: Performed By: #### 2 260604, 1049359, 4846207, 80764368, 00799931 ####[place] [address]57 MCHC (RBC) [Mass/Vol] 32.4 g/dL Normal 31.4-36.0 [facility] Comment on above: Performed By: #### 2 358179, 1264572, 0526148, 59731464, 25497731 ####[place] [address]57 MCV (RBC) [Entitic vol] 87.7 fL Normal 80.0-100.0 [facility] Comment on above: Performed By: #### 2 829453, 7514814, 1001176, 92251995, 94416041 ####[address] [address] Monocytes (Bld) [#/Vol] 0.4 E9/L Normal 0.2-1.0 [facility] Comment on above: Performed By: #### 2 896736, 1097925, 1409323, 12810137, 66332247 ####[facility] [address] [place] [address] Neutrophils (Bld) [#/Vol] 3.8 E9/L Normal 2.0-7.5 [facility] Comment on above: Performed By: #### 2 508054, 3089703, 3828290, 93881944, 86452529 ####[place] [address] [place] [address] Neutrophils/100 WBC (Bld) 71.4 % Normal 36.0-75.0 [facility] Comment on above: Performed By: #### 2 370162, 0332247, 3953264, 10297886, 23774233 ####[address] [address] Platelet mean volume (Bld) [Entitic vol] 7.7 fL Normal 6.4-10.8 [facility] Comment on above: Performed By: #### 2 502703, 6037828, 5390737, 32041159, 84633442 ####[address] [address] Platelets (Bld) [#/Vol] 277.0 E9/L Normal 150.0-500.0 [facility] Comment on above: Performed By: #### 2 960890, 5342404, 4434033, 87632288, 99764542 ####[address] [address] RBC (Bld) [#/Vol] 5.1 E12/L Normal 4.3-5.9 [facility] Comment on above: Performed By: #### 2 146117, 0806326, 4768347, 10739339, 00839459 ####[address] [address] WBC corrected for nucl RBC Auto (Bld) [#/Vol] 5.3 E9/L Normal 4.0-11.0 [facility] Comment on above: Performed By: #### 2 471857, 6944957, 5261350, 02527681, 07872093 ####[place] [address] [place] [address] CMPon 10-19-2023 Albumin [Mass/Vol] 4.5 g/dL Normal 3.3-5.0 [facility] Comment on above: Performed By: #### 2 757054, 8166423, 9578296, 79792990, 91734581 ####[address] [address] Albumin/Globulin (S) [Mass conc ratio] 1.5 Normal 1.1-2.2 [facility] Comment on above: Performed By: #### 2 137478, 6387016, 8783263, 33827318, 63507250 ####[address] [address] ALP [Catalytic activity/Vol] 98 Int._Unit/L Normal 21-98 [facility] Comment on above: Performed By: #### 2 760054, 3615771, 4869040, 96136021, 88299982 ####[address] [address] ALT No additional P-5'-P [Catalytic activity/Vol] 17 Int._Unit/L Normal 6-46 [facility] Comment on above: Performed By: #### 2 762185, 7790807, 8803570, 01412070, 61549502 ####[place] [address] [place] [address] Anion gap [Moles/Vol] 12 mmol/L Normal 6-16 [facility] Comment on above: Performed By: #### 2 954409, 3280037, 2723872, 20747014, 60074620 ####[place] [address] [place] [address] AST [Catalytic activity/Vol] 16 Int._Unit/L Normal 5-43 [facility] Comment on above: Performed By: #### 2 667409, 3493131, 7854129, 52531456, 38747359 ####[facility] [address] [place] [address] Bilirubin [Mass/Vol] 0.7 mg/dL Normal 0.0-1.1 [facility] Comment on above: Performed By: #### 2 724626, 4352358, 5643319, 32082170, 39612042 ####[facility] [address] [place] [address] Calcium [Mass/Vol] 9.6 mg/dL Normal 8.9-11.1 [facility] Comment on above: Performed By: #### 2 357708, 1839407, 1010661, 02047527, 36122938 ####[address] [address] Chloride [Moles/Vol] 106 mmol/L Normal 101-111 [facility] Comment on above: Performed By: #### 2 067005, 7796256, 1090656, 63702467, 85352447 ####[facility] [address] [place] [address] CO2 [Moles/Vol] 27 mmol/L Normal 21-31 [facility] Comment on above: Performed By: #### 2 461918, 1001869, 6790409, 11960219, 60128363 ####[place] [address] [place] [address] Creatinine [Mass/Vol] 0.8 mg/dL Normal 0.5-1.3 [facility] Comment on above: Performed By: #### 2 729168, 5233980, 1700606, 21723626, 47408967 ####[facility] [address] [place] [address] Globulin (S) [Mass/Vol] 3.0 g/dL Normal 1.4-4.0 [facility] Comment on above: Performed By: #### 2 165867, 5625496, 7988653, 23178706, 22095218 ####[address] [place] [address] Glucose [Mass/Vol] 89 mg/dL Normal 55-199 [facility] Comment on above: Performed By: #### 2 560597, 4506703, 1669954, 86115444, 47276022 ####[facility] [address] [place] [address] Potassium [Moles/Vol] 4.3 mmol/L Normal 3.5-5.3 [facility] Comment on above: Performed By: #### 2 856104, 0910030, 6883519, 61101057, 56056600 ####[facility] [address] [place] [address] Protein [Mass/Vol] 7.5 g/dL Normal 6.0-7.8 [facility] Comment on above: Performed By: #### 2 528432, 8380713, 2833383, 77984587, 55626036 ####[facility] [address] [place] [address] Sodium [Moles/Vol] 141 mmol/L Normal 135-145 [facility] Comment on above: Performed By: #### 2 818950, 3261587, 7368507, 92310699, 19437575 ####[facility] [address] [place] [address] Urea nitrogen [Mass/Vol] 20 mg/dL Normal 5-21 [facility] Comment on above: Performed By: #### 2 648496, 3357990, 2132840, 70350756, 71407508 ####[facility] [address] [place] [address] Urea nitrogen/Creatinine [Mass ratio] 25 No Units High 10-20 [facility] Comment on above: Performed By: #### 2 400711, 2725220, 7869697, 34851587, 09430011 ####[facility] [address] [place] [address] Family Medicine Office/Clini c Noteon 10-19-2023 Family Medicine Office/Clinic Note Chief Complaint 122 HPI Staff Teresita is a 63 year old female presenting for 6 month follow up HTN & MS Recent [facility] 10/12 cut lower right leg on a box. Has pain in that leg, doing dressing changes every other day . Needs checked today Patient wheelchair confined, cannot weight no BMI to chart Patient is here for follow up on hypertension. How often are you checking your blood pressure? Doesnt check BP at home What are your average readings? N/A, Not checking at home Yearly BMP: 09/14/22 questions/concerns: needs all her meds that she's taking refiled History of Present Illness - Pt is here for follow up. Has not been seen in 6 months. - Pt states she is doing well. - Had a skin abrasion. - No other concerns today. - Needs meds refilled. - Neuro is unsure if she has MS or another issue. Review of Systems PHQ Score Initial Depression Screen Score: 2 SCORE Physical Exam Vitals & Measurements T: 36.0 ?C(Temporal Artery) HR: 62(Peripheral) RR: 16 BP: 122/76 SpO2: 100% HT: 65 in HT: 165.1 cm General: alert, no acute distress ENMT: oral mucosa moist, Cardiovascular: regular rate and rhythm, normal peripheral perfusion Respiratory: Lungs CTA, respirations non labored Extremities: no deformity, no trauma Edema of both lower extremities. Wrapped. Neurological: oriented x 4, LOC appropriate for age, CN II-XII intact, Wheelchair mars, speech normal Abdomen: Soft, Nontender, Non-distended, + BS Assessment/Plan 1. HTN (hypertension) (I10: Essential (primary) hypertension) - BP well controlled. - No issues at this time. - Meds working well. - Will refill. Ordered: CBC w/ Auto Diff Comprehensive Metabolic Panel Current tobacco non-user 1036F Depression Screening Negative 3352F Lipid Panel Most recent diastolic blood pressure <80 mm Hg 3078F Systolic BP <130 mm Hg (Most Recent) 3074F TSH With T4fr Reflex 2. Multiple sclerosis (G35: Multiple sclerosis) - Stable. - Will review records - No concerns at this time. Ordered: CBC w/ Auto Diff Comprehensive Metabolic Panel Current tobacco non-user 1036F Depression Screening Negative 3352F Lipid Panel Most recent diastolic blood pressure <80 mm Hg 3078F Systolic BP <130 mm Hg (Most Recent) 3074F TSH With T4fr Reflex 3. Former smoker (Z87.891: Personal history of nicotine dependence) - Please continue to not smoke. Ordered: CBC w/ Auto Diff Comprehensive Metabolic Panel Current tobacco non-user 1036F Depression Screening Negative 3352F Lipid Panel Most recent diastolic blood pressure <80 mm Hg 3078F Systolic BP <130 mm Hg (Most Recent) 3074F TSH With T4fr Reflex 4. Hypothyroid (E03.9: Hypothyroidism, unspecified) - Will check labs today. - No issues. - Will adjust meds as needed Ordered: CBC w/ Auto Diff Comprehensive Metabolic Panel Lipid Panel TSH With T4fr Reflex 5. Lymphedema (I89.0: Lymphedema, not elsewhere classified) - Stable. - Continue to wrap your legs. - Dressing changed from the skin tear Ordered: CBC w/ Auto Diff Comprehensive Metabolic Panel Lipid Panel TSH With T4fr Reflex 6. 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 Ordered: CBC w/ Auto Diff Comprehensive Metabolic Panel Lipid Panel TSH With T4fr Reflex 7. Fecal incontinence (R15.9: Full incontinence of feces) - Will order supplies as needed. Ordered: CBC w/ Auto Diff Comprehensive Metabolic Panel Lipid Panel TSH With T4fr Reflex Orders: alendronate, See Instructions, TAKE ONE TABLET BY MOUTH ONCE WEEKLY, # 12 EA, Refills(s) 0, Pharmacy: [facility], 165.1, cm, 10/19/23 9:50:00 EDT, Height/Length Dosing atropine-diphenoxyla te, 1 tab(s), Oral, BID Diarrhea, 60 tab(s), Refill(s) 1, prn constipation, [facility], 165.1, cm, 10/19/23 9:50:00 EDT, Height/Length Dosing levothyroxine, 75 mcg, Oral, Daily, # 90 tab(s), Refills(s) 1, Pharmacy: [facility], 165.1, cm, 10/19/23 9:50:00 EDT, Height/Length Dosing metoprolol, 25 mg = 1 tab(s), Oral, Daily, # 90 tab(s), Refills(s) 1, Pharmacy: [facility], 165.1, cm, 10/19/23 9:50:00 EDT, Height/Length Dosing Follow-up No qualifying data available Problem List/Past Medical History Ongoing Candidiasis of skin and nail Fecal incontinence H/O urethral stricture Herpes zoster History of recurrent UTIs HTN (hypertension) Hypothyroid Lymphedema Multiple sclerosis Neurogenic bladder Osteoporosis Sleep disorder Urge incontinence Vitamin D deficiency Wheelchair dependent Historical No qualifying data Procedure/Surgical History Urodynamics (02/22/2018), Cystoscopy. Medications alendronate 70 mg Tab, See Instructions Lomotil 0.025 mg-2.5 mg Tab, 1 tab(s), Oral, BID, PRN, 1 refills metoprolol 25 mg ER Tab, 25 mg= 1 tab(s), Oral, Daily, 1 refills Synthroid 75 mcg Tab, 75 mcg, Oral, Daily, 1 refills Allergies No Known Medication Allergies Socia (more content not included)... Normal [facility] Comment on above: Result Comment: Elec tronically Signed By: Clay DANIELS, Erasto Turcios.br\Date and Time Signed: 10/19/23 10:27 EDT Lipid Panelon 10-19-2023 Cholesterol [Mass/Vol] 160 mg/dL Normal 120-200 [facility] Comment on above: Performed By: #### 2 964372, 2516721, 6029138, 80172094, 58292056 ####[facility] [address] [place] [address] Cholesterol in HDL [Mass/Vol] 45 mg/dL Invalid Interpretation Code [facility] Comment on above: Result Comment: '>= 60 LOW RISK' '<= 40 HIGH RISK' Performed By: #### 2 717220, 9243228, 0696748, 14149290, 52730373 ####[facility] [address] [place] [address] Cholesterol in LDL [Mass/Vol] 106 mg/dL Normal <=129 [facility] Comment on above: Performed By: #### 2 082885, 0615397, 9483857, 80124735, 43813788 ####[facility] [address] [place] [address] Cholesterol in VLDL [Mass/Vol] 15 mg/dL Normal 7-40 [facility] Comment on above: Performed By: #### 2 570496, 5009370, 3157389, 05820215, 16716769 ####[facility] [address] [place] [address] Triglyceride [Mass/Vol] 77 mg/dL Normal <=149 [facility] Comment on above: Performed By: #### 2 759028, 1082780, 9899043, 31175868, 26301307 ####[facility] [address] [place] [address] TSH With T4fr Reflexon 10-18 TSH Qn 1.59 m[IU]/L Normal 0.34-5.60 [facility] Comment on above: Performed By: #### 2 603925, 7645610, 1651434, 55205807, 79337152 ####[address] [address] [place] [address] eGFRon 10-19-2023 eGFR 83 mL/min/1.73 m2 Normal >=59 [facility] Comment on above: Order Comment: Order added by Discern Expert. Performed By: #### 2 942483, 7263911, 2411261, 54445807, 42335983 ####[address] [address] [place] [address] ED Note-Physicianon 10-18-19 ED Note-Physician [id number] #1.00TIFF Normal [facility] RAD - MRI Reporton RAD - MRI Report [id number] #1.00TIFF Normal [facility] RAD - MRI Report [id number] #1.00TIFF Normal [facility] Consultation Noteon 09-02-19 Consultation Note [id number] #1.00TIFF Normal [facility] Consultation Noteon 06-03-20 Consultation Note [id number]#1.00TIFF [facility] Consultation Noteon 04-29-20 Consultation Note [id number]#1.00TIFF [facility] Ambulatory Visit Summaryon 1 06-26-2022 Ambulatory Visit [...] Appointments Wednesday. 2023 10:00 AM EDT With: Erasto Fay MD Where: [facility] Family Medicine Office/Clini c Noteon 04-26-2023 Family Medicine Office/Clinic Note HPI Staff Teresita is a [...] WEEKLY, # 12 EA, Refills(s) 0, Pharmacy: [facility], 165.1, cm, 04/26/23 9:00:00 EST, Height/Length Dosing atropine-diphenoxyla te, 1 tab(s), Oral, BID Diarrhea, 60 tab(s), Refill(s) 1, prn constipation, [facility], 165.1, cm, 04/26/23 9:00:00 EST, Height/Length Dosing levothyroxine, 75 mcg, Oral, Daily, # 90 tab(s), Refills(s) 1, Pharmacy: [facility], 165.1, cm, 04/26/23 9:00:00 EST, Height/Length Dosing metoprolol, 25 mg = 1 tab(s), Oral, Daily, # 90 tab(s), Refills(s) 1, Pharmacy: [facility], 165.1, cm, 04/26/23 9:00:00 EST, Height/Length [...] Immunizations Vaccine Date Status Comments SARS-CoV-2 mRNA (celeste 5y-11y) vac - Not Given Postpone due to refusal [facility] Comment on above: Result Comment: Elec tronically Signed By: Clay DANIELS, Erasto Macias\Date and Time Signed: 04/26/23 09:21 EST Retail - Clinical Noteon Retail - Clinical Note [id number] #1.00TIFF [facility] Retail - Clinical Note [id number]# 1.00TIFF [facility] Interdisciplinary Note - Soc ial Workeron 04-05-2023 Interdisciplinary Note - Manager Competitive Intelligence This SW reached out to patient today to discuss her need for some resources and assistance. Per patient, she is in need of a COPY EDITOR but she was cut off by Medicaid and isn't able to get one. She states that she has had Medicaid since the and had been getting a COPY EDITOR but then it stopped. She is current with [facility] and her case consultant is Christiane Jimenez ([phone]). She states that Christiane is trying to find a COPY EDITOR for her at this time. SW tried to reach out to Christiane to see if there was anything she needed from the office in order to assist with arranging these services, however there was no answer and a voicemail was not able to be left. SW will remain available. [facility] Consultation Noteon 03-16-20 Consultation Note [id number]#1 .00CD:127 [facility] 2022 Home Health Records [id number] #1.00CD:127 [facility] Retail - Clinical Noteon Retail - Clinical Note [id number] #1.00CD:127 [facility] Consultation Noteon 01-19-20 Consultation Note [id number] #1.00CD:127 [facility] Record[facility] 2022 Home Health Records [id number] #1.00CD:127 Normal [facility] Family Medicine Office/Clini c Noteon 12-31-2022 Family [...] with voice recognition artificial intelligence software, specifically [employer], [employer] and or [employer]. Substitutions may have occurred due to the inherent limitations of voice recognition and artificial intelligence software. Documentation services were performed after patient or guardian consented to allow [employer] to record this visit. RAYSHAWN ancillary specialist and provider reviewed before signing. RAYSHAWN: [...] Vaccine Date Status (more content not included)... [facility] Comment on above: Result Comment: Elec tronically Signed By: Erasto Fay MD\.br\Date and Time Signed: 12/31/22 15:18 EDT\.br\Electronically Co-Signed By: Gala Simmons\.br\Date and Time Co-Signed: 12/29/22 14:55 EDT Retail - Clinical Noteon Retail - Clinical Note [id number] #1.00CD:127 [facility] Ambulatory Visit Summaryon 0 12-29-2022 Ambulatory Visit [...] Follow-Up Appointments Wednesday 1:20 PM EDT With: Clay DANIELS, Erasto Adam Where: [facility] Eddie Normal [facility] Office/Clini c Noteon 12-29-2022 Family Medicine Office/Clinic [...] with voice recognition artificial intelligence software, specifically [employer], [employer] and or [employer]. Substitutions may have occurred due to the inherent limitations of voice recognition and artificial intelligence software. ATTESTATION: Documentation services were performed after patient or guardian consented to allow [employer] to record this visit. RAYSHAWN ancillary specialist and provider reviewed before signing. RAYSHAWN: [...] Immunizations Vaccine (more content not included)... Normal [facility] Comment on above: Result Comment: Elec tronically Signed By: Gala Simmons\.br\Date and Time Signed: 12/29/22 14:37 EDT\.br\Electronically Co-Signed By: Thiago MORALES, LINTING MACHINE OPERATOR-NNAMDI, Leann Steward [facility] [id number] #[id number]:[id number] Normal [facility] MRI TSPINE WO W CONon 2021 MRI [...] by: EDDY VIDES Date: 2021-10-17 17:03 Normal [facility] MRI BRAIN WO W CONon 022 MRI [...] by: FERNANDO MARTINEZ Date: 2021-10-13 15:00 Normal [facility] MRI CSPINE WO W CONon 2021 MRI [...] by: FERNANDO MARTINEZ Date: 2021-10-13 15:[address] [facility] Vital Signs Date Time Vital Sign Value Performing Clinician Faci lity 11-05-2021 12:00-0400 Body height 165.1 cm Mukesh Martínez Other [facility] Other 11-05-2021 12:00-0400 Body mass index (BMI) [Ratio] 26.62 kg/m2 Mukesh Martínez Other [facility] Other 11-05-2021 12:00-0400 Body weight 72.58 kg Mukesh Martínez Other [facility] Other Encounters Encounter Date Encounter Type Care Provider Facility Start: 01-18-2024 ambulatory Erasto Fay Facility :[facility] Eddie Start: 10-19-2023 End: 10-19-2023 ambulatory Erasto Fay Facility:[facility] Start: 04-26-2023 End: 04-26-2023 ambulatory Erasto Fay Facility:[facility] Stephanie chen Start: 03-30-2023 End: 03-30-2023 ambulatory Erasto Fay Facility:[facility] Stephanie chen Start: 12-29-2022 End: 12-29-2022 ambulatory Erasto Fay Facility:[facility] Stephanie chen Start: 12-08-2022 End: 12-08-2022 ambulatory Jennifer Leal Facility:[facility] Start: 12-08-2022 End: 12-08-2022 ambulatory MD Erasto Fay Work Phone: [facility] Work Phone: Start: 12-08-2022 End: 12-08-2022 Discharged Recurring MD Erasto Fay Work Phone: [facility] [address] Start: 09-30-2022 ambulatory KIMO CARROLLMORE Facility :[facility] Start: 11-05-2021 End: 11-05-2021 ambulatory Mukesh Martínez Other [facility] [employer] Other Start: 11-05-2021 Office outpatient ne w 30 minutes Mukesh Martínez [facility] Start: 10-17-2021 End: 10-18-[address] DOCTOR PADRON Facility:[facility] Start: 10-13-2021 End: 10-14-[address] DOCTOR PADRON Facility:[facility] Payers Date Payer Category Payer Self-pay [id number] 1960 Unknown [id number] 2.16.84 [id number] 1960 Unknown [id number] 2.16.84 [id number] 1960 Unknown [id number] 2.16.84 [id number] 1960 Unknown [id number] 2.16.8 [id number] 1962 Unknown [id number] 2.16.8 [id number] 1962 Unknown [id number] 2.16.8 [id number] 1962 Unknown [id number] 2.16.8 [id number] 1962 Unknown [id number] 2.16.8 [id number] 1962 Unknown [id number] 2.16.8 [id number] 1957 Medicaid [id number] 2. [id number] Unknown [id number] 2.16.8 [id number] Social History Date Type Detail Facility Unknown if ever smoked [facility] Other Sex Assigned At Sex Assigned At Bir th [facility] Other Start: 1960 Sex Assigned At Female F 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 [facility] Other Evaluation note Note Date & Type Note Facility Evaluation note No assessment information availa [facility] Work Phone: History general Narrative - Reported Note Date & Type Note Facility History general Narrative - Reported Type Medical History multiple sclerosis Medical History [facility] Surgical History cyst removal Hospitalization History [facility] [employer] Other Summary Purpose Family History No Family History Records FoundNo Family History Records FoundNo Family History Records Found Advance Directives No Advanced Directives Records Found Advance Directive Response Recorded Date/ Time Advance Directives No February 9:51am Chief Complaint and Reason for Visit Chief Complaint MK only;debility Additional Source Comments REASON FOR VISIT (unrecogniz ed section and content) Referred Jennifer May Cervi rojelio [employer] INFORMATION SOURCE (unrecogn ized section and content) DATE CREATED AUTHOR 09/24/2022 [facility] DATE CREATED AUTHOR AUTHOR'S ORGANIZ ATION 12/21/[address] [facility] DATE CREATED AUTHOR AUTHOR'S ORGANIZ ATION 11/16/2023 [facility] Care Teams (unrecognized sec tion and content) Team Status: Active Member Role Status Dates Erasto Fay MD Primary Care Provider Active Team Status: Inactive Member Role Status Dates Jennifer Leal APRN Attending Provider Active Erasto Fay MD Primary Care Provider Active Goals (unrecognized [...] BE BASED ON THE PRIMARY CLINICAL RECORDS. [employer] provides no warranty or guarantee of the accuracy or completeness of information in this document.
== END 2023-12-13 16:01 | disposition home or self-care (01) ==
LOC: WC 16:00
PROVIDERS: PCP Family Medicine; Visit Provider Physician Assistant
DX: S81.801A Unspecified open wound, right lower leg, initial encounter (principal)
CPT/HCPCS: A6213; G0463

== ENCOUNTER 2024-01-03 16:00 | Outpatient (OUT) | payer OTHER, SELFPAY | END 2024-01-03 16:01 | disposition home or self-care (01) | LOC: WC 16:00 | PROVIDERS: PCP Family Medicine; Visit Provider Physician Assistant | DX: S81.801A Unspecified open wound, right lower leg, initial encounter (principal) | CPT/HCPCS: A6213; G0463 ==

== ENCOUNTER 2024-01-07 12:49 | Outpatient (RCR) | payer OTHER, SELFPAY | END 2024-02-13 16:30 | disposition home or self-care (01) | LOC: OT 12:49 | PROVIDERS: PCP Family Medicine; Visit Provider Podiatrist Foot & Ankle Surgery | DX: I87.2 Venous insufficiency (chronic) (peripheral) (principal); I89.0 Lymphedema, not elsewhere classified; S81.811D Laceration without foreign body, right lower leg, subsequent encounter | CPT/HCPCS: 97167; 97530 ==

== ENCOUNTER 2024-01-28 11:38 | Outpatient (OUT) | payer OTHER, SELFPAY ==
--- OUTSIDE RECORDS SUMMARY | 2024-01-28 11:52 | XMS_ITS | CCD ---
Author Organization [facility] CliniSytx Care Team Providers Care [employer] Business [employer] Consultant Name Role Phone Mukesh Martínez Unavailable KIMO ROD Attending Unavailable KIMO ROD Admitting Unavailable ERASTO FAY Primary Care Unavailable [facility], DR RIOS Attending Unavailable [facility], DR RIOS Admitting Unavailable [place], DR EDDY Contreras Consulting Unavailable PEREZ ., DR OK Johnson Primary Care Unavailable MIS, DR RIOS Consulting Unavailable MIS, DR RIOS Consulting Unavailable MIS, DR RIOS Admitting Unavailable PEREZ ., DR OK Johnson Primary Care Unavailable [facility], DR RIOS Attending Unavailable JUAN, DR FERNANDO Rich Consulting Unavailable SAL Leal Attending Provider MD Erasto Fay Primary Care Provider Jennifer Leal Admitting Unavailable Jennifer Leal Attending Unavailable Erasto Fay Primary Care Unavailable Erasto Fay Attending Unavailable Erasto Fay Attending Unavailable Erasto Fay Attending Unavailable Erasto Fay Admitting Unavailable Erasto Fay Attending Unavailable Erasto Fay Attending Unavailable Erasto Fay Attending Unavailable ALEXYS OSORIO Attending Unavailable ALEXYS OSORIO Attending Unavailable Allergies Allergy Classification Reported Allergen(s) Allergy Type Date of Onset Reaction(s) Facility (2 sources) teriflunomide Drug Allergy 02-20-20 Unknown, [facility] (1 source) muscle relaxors not allowed Propensity to adverse reactions Unknown [facility] Other (1 source) teriflunomide Drug Allergy 02-20-20 [facility] (1 source) No Known Medication Allergies; Translations: [No Known Medication Allergies] Propensity to adverse reactions (disorder) [facility] Repository Medications Current Medications Medication Drug [...] D2) (Vitamin D2) 50,000 unit Capsule Active 44677 UNITS PO every week February 22, 2017 12:00am furosemide 20 mg oral tablet (2 sources) Loop Diuretic Start: 02-22-2017 take 20 mg by mouth once daily in the morning Furosemide Active 20 MG PO Every morning February 22, 2017 12:00am take 1 tablet by mouth every oth day Lasix 20 mg 1 tablet Orally [...] Test Name Value Interpretation Reference Range Facility Provider Letteron 01-18-2024 Provider Letter Provider Letter January 18, 2024 TERESITA [address]ER [address] [place] [id number] : 1960 To Whom It May Concern, Above patient was seen in our office on 01/18/2024 at 10:15am. Comments: Please contact our office with any further questions. Sincerely, Family Medicine [address] [address] [facility] Consultation Noteon 11-15-19 Consultation Note [id number] #1.00TIFF [facility] Ambulatory Visit Summaryon 0 10-19-2023 Ambulatory Visit Summary TERESITA IYER :1960 Visit Date:10/19/2023 Ambulatory Visit Instructions Your [...] Follow-Up Appointments Wednesday 10:15 AM EDT With: Clay DANIELS, Erasto Adam Where: [facility] Family Medicine [place] Normal [facility] CBC w/ Auto Diffon 4 Basophils/100 WBC (Bld) 0.7 % Normal 0.0-2.0 [facility] Comment on above: Performed By: #### 2 760507, 1384382, 3685350, 41691727, 10266916 ####[address] [place] [address] Basophils/Leukocytes Auto (Bld) [Pure # fraction] 0.0 E9/L Normal 0.0-0.2 [facility] Comment on above: Performed By: #### 2 307991, 6190421, 8659339, 25997108, 35439572 ####[facility] [address] [place] [address] Eosinophils (Bld) [#/Vol] 0.1 E9/L Normal 0.0-0.5 [facility] Comment on above: Performed By: #### 2 084961, 7354951, 6497621, 04086481, 80887500 ####[address] [place] [address] Eosinophils/100 WBC (Bld) 2.5 % Normal 0.0-8.0 [facility] Comment on above: Performed By: #### 2 117464, 2228847, 7868728, 43134164, 91873867 ####[address] [address] Erythrocyte distribution width (RBC) [Ratio] 14.6 % High 10.9-14.2 [facility] Comment on above: Performed By: #### 2 421919, 9446826, 5156085, 74687292, 82021167 ####[facility] [address] [place] [address] Hematocrit (Bld) [Volume fraction] 44.3 % Normal 34.0-46.0 [facility] Comment on above: Performed By: #### 2 307650, 8025251, 4518964, 70687739, 85998878 ####[address] [address] Hemoglobin (Bld) [Mass/Vol] 14.4 g/dL Normal 12.0-16.0 [facility] Comment on above: Performed By: #### 2 903337, 7468164, 6908181, 43799019, 62342948 ####[address] [address] Lymphocytes (Bld) [#/Vol] 1.0 E9/L Normal 1.0-4.0 [facility] Comment on above: Performed By: #### 2 295977, 9752868, 6545762, 91211971, 91585829 ####[address] [address] Lymphocytes/100 WBC (Bld) 18.4 % Normal 14.0-50.0 [facility] Comment on above: Performed By: #### 2 075077, 0015914, 9404388, 02377789, 33260897 ####[address] [address] MCH (RBC) [Entitic mass] 28.4 pg Normal 27.0-34.0 [facility] Comment on above: Performed By: #### 2 094671, 0334807, 0034072, 24576059, 23097803 ####[address] [address] MCHC (RBC) [Mass/Vol] 32.4 g/dL Normal 31.4-36.0 [facility] Comment on above: Performed By: #### 2 264013, 5278665, 1540594, 20762442, 46529179 ####[address] [place] [address] MCV (RBC) [Entitic vol] 87.7 fL Normal 80.0-100.0 [facility] Comment on above: Performed By: #### 2 560444, 2186407, 8850850, 22665063, 96842329 ####[address] [address] Monocytes (Bld) [#/Vol] 0.4 E9/L Normal 0.2-1.0 [facility] Comment on above: Performed By: #### 2 040628, 2834132, 9819624, 06082195, 29570830 ####[address] [address] Neutrophils (Bld) [#/Vol] 3.8 E9/L Normal 2.0-7.5 [facility] Comment on above: Performed By: #### 2 232271, 1875480, 5296754, 75698411, 17541572 ####[address] [address] Neutrophils/100 WBC (Bld) 71.4 % Normal 36.0-75.0 [facility] Comment on above: Performed By: #### 2 110091, 3923918, 2859707, 15612939, 54882499 ####[address] [address] Platelet mean volume (Bld) [Entitic vol] 7.7 fL Normal 6.4-10.8 [facility] Comment on above: Performed By: #### 2 782084, 9183476, 4284893, 16446018, 66409648 ####[address] [address] Platelets (Bld) [#/Vol] 277.0 E9/L Normal 150.0-500.0 [facility] Comment on above: Performed By: #### 2 444304, 9963151, 2549157, 66720371, 22231014 ####[facility] [address] [place] [address] RBC (Bld) [#/Vol] 5.1 E12/L Normal 4.3-5.9 [facility] Comment on above: Performed By: #### 2 933069, 1861743, 4961277, 79979204, 40662664 ####[address] [address] WBC corrected for nucl RBC Auto (Bld) [#/Vol] 5.3 E9/L Normal 4.0-11.0 [facility] Comment on above: Performed By: #### 2 783323, 1033651, 8416844, 82240848, 74084925 ####[address] [address] CMPon 10-19-2023 Albumin [Mass/Vol] 4.5 g/dL Normal 3.3-5.0 [facility] Comment on above: Performed By: #### 2 990077, 9497557, 6865680, 65203812, 80330001 ####[address] [address] Albumin/Globulin (S) [Mass conc ratio] 1.5 Normal 1.1-2.2 [facility] Comment on above: Performed By: #### 2 764818, 2300643, 2516017, 37793101, 38003420 ####[address] [address] ALP [Catalytic activity/Vol] 98 Int._Unit/L Normal 21-98 [facility] Comment on above: Performed By: #### 2 935079, 0742532, 8765692, 13396275, 96646195 ####[address] [address] ALT No additional P-5'-P [Catalytic activity/Vol] 17 Int._Unit/L Normal 6-46 [facility] Comment on above: Performed By: #### 2 942005, 3245898, 1778688, 41643936, 72368140 ####[facility] [address] [place] [address] Anion gap [Moles/Vol] 12 mmol/L Normal 6-16 [facility] Comment on above: Performed By: #### 2 060496, 2695966, 2835047, 44001943, 91793484 ####[facility] [address] [place] [address] AST [Catalytic activity/Vol] 16 Int._Unit/L Normal 5-43 [facility] Comment on above: Performed By: #### 2 589778, 6028600, 3528206, 13799353, 51152868 ####[facility] [address] [place] [address] Bilirubin [Mass/Vol] 0.7 mg/dL Normal 0.0-1.1 [facility] Comment on above: Performed By: #### 2 953254, 9059220, 8192728, 97090493, 20580741 ####[facility] [address] [place] [address] Calcium [Mass/Vol] 9.6 mg/dL Normal 8.9-11.1 [facility] Comment on above: Performed By: #### 2 002010, 4120358, 9738799, 13905578, 41377989 ####[facility] [address] [place] [address] Chloride [Moles/Vol] 106 mmol/L Normal 101-111 [facility] Comment on above: Performed By: #### 2 322004, 9957201, 1091216, 72685219, 86281719 ####[facility] [address] [place] [address] CO2 [Moles/Vol] 27 mmol/L Normal 21-31 [facility] Comment on above: Performed By: #### 2 093850, 1033365, 9287578, 85123709, 02826380 ####[facility] [address] [place] [address] Creatinine [Mass/Vol] 0.8 mg/dL Normal 0.5-1.3 [facility] Comment on above: Performed By: #### 2 017373, 3624517, 7253163, 71635556, 99919179 ####[facility] [address] [place] [address] Globulin (S) [Mass/Vol] 3.0 g/dL Normal 1.4-4.0 [facility] Comment on above: Performed By: #### 2 808516, 6341592, 5104104, 92470801, 06232919 ####[facility] [address] [place] [address] Glucose [Mass/Vol] 89 mg/dL Normal 55-199 [facility] Comment on above: Performed By: #### 2 204782, 5809107, 9420944, 89914033, 06125157 ####[facility] [address] [place] [address] Potassium [Moles/Vol] 4.3 mmol/L Normal 3.5-5.3 [facility] Comment on above: Performed By: #### 2 167636, 9438653, 8986441, 92197197, 15645927 ####[facility] [address] [place] [address] Protein [Mass/Vol] 7.5 g/dL Normal 6.0-7.8 [facility] Comment on above: Performed By: #### 2 986637, 5232979, 1245810, 72239646, 66687961 ####[facility] [address] [place] [address] Sodium [Moles/Vol] 141 mmol/L Normal 135-145 [facility] Comment on above: Performed By: #### 2 787851, 4853005, 0794302, 60915110, 50226575 ####[facility] [address] [place] [address] Urea nitrogen [Mass/Vol] 20 mg/dL Normal 5-21 [facility] Comment on above: Performed By: #### 2 171599, 6761629, 5378029, 17824883, 04427001 ####[facility] [address] [place] [address] Urea nitrogen/Creatinine [Mass ratio] 25 No Units High 10-20 [facility] Comment on above: Performed By: #### 2 364652, 7449493, 9082913, 35534467, 92133888 ####[facility] [address] [place] [address] Family Medicine Office/Clini c Noteon 10-19-2023 Family Medicine Office/Clinic Note Chief Complaint 122 HPI Staff Teresita is a 63 year old female presenting for 6 month follow up HTN & MS Recent [facility] 10/12 cut lower right leg on [...] WEEKLY, # 12 EA, Refills(s) 0, Pharmacy: [facility], 165.1, cm, 10/19/23 9:50:00 EDT, Height/Length Dosing atropine-diphenoxyla te, 1 tab(s), Oral, BID Diarrhea, 60 tab(s), Refill(s) 1, prn constipation, [facility], 165.1, cm, 10/19/23 9:50:00 EDT, Height/Length Dosing levothyroxine, 75 mcg, Oral, Daily, # 90 tab(s), Refills(s) 1, Pharmacy: [facility], 165.1, cm, 10/19/23 9:50:00 EDT, Height/Length Dosing metoprolol, 25 mg = 1 tab(s), Oral, Daily, # 90 tab(s), Refills(s) 1, Pharmacy: [facility], 165.1, cm, 10/19/23 9:50:00 [...] Allergies Socia (more content not included)... Normal [facility] Comment on above: Result Comment: Elec tronically Signed By: Clay DANIELS, Eratso Turcios.br\Date and Time Signed: 10/19/23 10:27 EDT Lipid Panelon 10-19-2023 Cholesterol [Mass/Vol] 160 mg/dL Normal 120-200 [facility] Comment on above: Performed By: #### 2 536190, 4830372, 5216094, 41348829, 31768589 ####[facility] [address] [place] [address] Cholesterol in HDL [Mass/Vol] 45 mg/dL Invalid Interpretation Code [facility] Comment on above: Result Comment: '>= 60 LOW RISK' '<= 40 HIGH RISK' Performed By: #### 2 837830, 3807353, 6555551, 77145709, 66646424 ####[facility] [address] [place] [address] Cholesterol in LDL [Mass/Vol] 106 mg/dL Normal <=129 [facility] Comment on above: Performed By: #### 2 211800, 1359655, 3369982, 47759113, 60645806 ####[facility] [address] [place] [address] Cholesterol in VLDL [Mass/Vol] 15 mg/dL Normal 7-40 [facility] Comment on above: Performed By: #### 2 131813, 2688516, 4780346, 84688978, 17367656 ####[address] [place] [address] Triglyceride [Mass/Vol] 77 mg/dL Normal <=149 [facility] Comment on above: Performed By: #### 2 783242, 8481379, 8377263, 64560871, 77900059 ####[address] [place] [address] TSH With T4fr Reflexon 10-18 TSH Qn 1.59 m[IU]/L Normal 0.34-5.60 [facility] Comment on above: Performed By: #### 2 932893, 5636632, 1736719, 51946781, 27705858 ####[address] [place] [address] eGFRon 10-19-2023 eGFR 83 mL/min/1.73 m2 Normal >=59 [facility] Comment on above: Order Comment: Order added by Discern Expert. Performed By: #### 2 857884, 2310778, 0938489, 13307934, 09962291 ####[facility] [address] [place] [address] ED Note-Physicianon 10-18-19 ED Note-Physician [id number] #1.00TIFF Normal [facility] RAD - MRI Reporton RAD - MRI Report [id number] #1.00TIFF Normal [facility] RAD - MRI Report [id number] #1.00TIFF Normal [facility] Consultation Noteon 09-02-19 24 Consultation Note [id number] #1.00TIFF Normal [facility] Consultation Noteon 06-03-20 Consultation Note [id number]#1.00TIFF Normal [facility] Consultation Noteon 04-29-20 Consultation Note [id number]#1.00TIFF [facility] Ambulatory Visit Summaryon 1 06-26-2022 Ambulatory Visit Summary TERESITA IYER :1960 Visit Date:04/26/2023 Ambulatory Visit Instructions Your [...] to do next Scheduled Follow-Up Appointments Wednesday 10:00 AM EDT With: Erasto Fay MD Where: [facility] Eddie Normal [facility] Medicine Office/Clini c Noteon 04-26-2023 Family Medicine [...] WEEKLY, # 12 EA, Refills(s) 0, Pharmacy: [facility], 165.1, cm, 04/26/23 9:00:00 EST, Height/Length Dosing atropine-diphenoxyla te, 1 tab(s), Oral, BID Diarrhea, 60 tab(s), Refill(s) 1, prn constipation, [facility], 165.1, cm, 04/26/23 9:00:00 EST, Height/Length Dosing levothyroxine, 75 mcg, Oral, Daily, # 90 tab(s), Refills(s) 1, Pharmacy: [facility], 165.1, cm, 04/26/23 9:00:00 EST, Height/Length Dosing metoprolol, 25 mg = 1 tab(s), Oral, Daily, # 90 tab(s), Refills(s) 1, Pharmacy: [facility], 165.1, cm, 04/26/23 9:00:00 EST, Height/Length [...] Immunizations Vaccine Date Status Comments SARS-CoV-2 mRNA (tozinameran 5y-11y) vac - Not Given Postpone due to refusal [facility] Comment on above: Result Comment: Elec tronically Signed By: Clay DANIELS, Erasto Turcios.br\Date and Time Signed: 04/26/23 09:21 EST Retail - Clinical Noteon Retail - Clinical Note [id number] #1.00TIFF [facility] Retail - Clinical Note [id number]# 1.00TIFF [facility] Interdisciplinary Note - Soc ial Workeron 04-05-2023 Interdisciplinary Note - Web Production Artist This SW reached out to patient today to discuss her need for some resources and assistance. Per patient, she is in need of a MATERIAL HANDLING WAREHOUSE SUPERVISOR but she was cut off by Medicaid and isn't able to get one. She states that she has had Medicaid since the and had been getting a MATERIAL HANDLING WAREHOUSE SUPERVISOR but then it stopped. She is current with [facility] and her showcase maker is Christiane Jimenez ([phone]). She states that Christiane is trying to find a MATERIAL HANDLING WAREHOUSE SUPERVISOR for her at this time. SW tried to reach out to Christiane to see if there was anything she needed from the office in order to assist with arranging these services, however there was no answer and a voicemail was not able to be left. SW will remain available. [facility] Consultation Noteon 03-16-20 Consultation Note [id number]#1 .00CD:127 Normal [facility] Home Health Recordson 2022 Home Health Records [id number] #1.00CD:127 Normal [facility] MRI TSPINE WO W CONon 2021 [...] by: EDDY VIDES Date: 2021-10-17 17:03 Normal [facility] MRI BRAIN WO W CONon 022 [...] by: FERNANDO MARTINEZ Date: 2021-10-13 15:00 Normal [facility] MRI CSPINE WO W CONon 2021 [facility] CON EXAMINATION: MRI HENRI YEBOAH W CON HISTORY: Multiple sclerosis COMPARISON: No [...] by: FERNANDO MARTINEZ Date: 2021-10-13 15:20 Normal [facility] Vital Signs Date Time Vital Sign Value Performing Clinician Colbyi alex 11-05-2021 12:00-0400 Body height 165.1 cm Mukesh Martínez Other [facility] Other 11-05-2021 12:00-0400 Body mass index (BMI) [Ratio] 26.62 kg/m2 Mukesh Martínez Other [facility] Other 11-05-2021 12:00-0400 Body weight 72.58 kg Mukesh Martínez Other [facility] Other Encounters Encounter Date Encounter Type Care Provider Facility Start: 04-17-2024 ambulatory Erasto Fay Facility : [facility] Start: 01-20-2024 End: 01-20-2024 ambulatory ALEXYS JO Not Available Start: 01-18-2024 End: 01-18-2024 ambulatory Erasto Fay Facility:[facility] Stephanie gustavo Start: 11-11-2023 End: 11-11-2023 ambulatory ALEXYS OSORIO Not Available Start: 10-19-2023 End: 10-19-2023 ambulatory Erasto Fay Facility:[facility] Start: 04-26-2023 End: 04-26-2023 ambulatory Erasto Fay Facility:[facility] Randall gustavo Start: 03-30-2023 End: 03-30-2023 ambulatory Erasto Fay Facility:[facility] Stephanie gustavo Start: 12-08-2022 End: 12-08-2022 ambulatory Jennifer Leal Facility:[facility] Start: 12-08-2022 End: 12-08-2022 ambulatory MD Erasto Fay Work Phone: [facility] Work Phone: Start: 12-08-2022 End: 12-08-2022 Discharged Recurring MD Erasto Fay Work Phone: [facility]-Physical [facility] [address] Start: 09-30-2022 ambulatory KIMO ROD Facility :[facility] Start: 11-05-2021 End: 11-05-2021 ambulatory Mukesh Martínez Other [employer] Other Start: 11-05-2021 Office outpatient ne w 30 minutes Mukesh Martínez [facility] Start: 10-17-2021 End: 10-18-[address] DOCTOR PADRON Facility:[facility] Start: 10-13-2021 End: 10-14-[address] DOCTOR PADRON Facility:[facility] Payers Date Payer Category Payer Self-pay [id number] 1960 Unknown [id number] 2.16.84 [id number] 1960 Unknown [id number] 2.16.84 0.1.584108.3.579.2.593 1960 Unknown [id number] 2.16.84 0.1.665897.3.579.2.593 1960 Unknown [id number] 2.16.8 40.1.583126.3.579.2.727 1960 Unknown [id number] 2.16.8 40.1.732909.3.579.2.727 1960 Unknown [id number] 2.16.8 40.1.335763.3.579.2.727 1960 Unknown [id number] 2.16.8 40.1.999071.3.579.2.727 1960 Unknown [id number] 2.16.8 40.1.320088.3.579.2.727 1960 Unknown [id number] 2.16.8 40.1.690371.3.579.2.727 1960 Unknown [id number] 2.16.84 0.1.528155.3.579.2.1259 1960 Unknown [id number] 2.16.84 0.1.671270.3.579.2.1259 1957 Medicaid [id number] 2. 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 [facility] Niko Niko Other Evaluation note Note Date & Type Note Facility Evaluation note No assessment information availa [facility] Work Phone: History general Narrative - Reported Note Date & Type Note Facility History general Narrative - Reported Type Medical History multiple sclerosis Medical History LYMPHEDEMA Surgical History cyst removal Hospitalization History MS [facility] Niko Niko Other Summary Purpose Family History No Family [...] content) DATE CREATED AUTHOR [facility]/24/2022 [facility] DATE CREATED AUTHOR AUTHOR'S ORGANIZ ATION 12/21/2022 [facility] DATE CREATED AUTHOR AUTHOR'S ORGANIZ ATION 01/20/2024 [facility] DATE CREATED AUTHOR AUTHOR'S ORGANIZ ATION 01/22/2024 [facility] EPIC Care Teams (unrecognized sec tion and content) [...] BE BASED ON THE PRIMARY CLINICAL RECORDS. [facility]. provides no warranty or guarantee of the accuracy or completeness of information in this document.
== END 2024-01-28 11:39 | disposition home or self-care (01) ==
LOC: WC 11:38
PROVIDERS: PCP Family Medicine; Visit Provider Podiatrist Foot & Ankle Surgery
DX: S81.801A Unspecified open wound, right lower leg, initial encounter (principal)
CPT/HCPCS: G0463

== ENCOUNTER 2024-10-17 17:18 | Emergency (ER) | payer OTHER, SELFPAY ==
[2024-10-17 17:21] VITALS: BP 160/104; PULSE 78; TEMP 37.1; O2SAT 96; BMI 27.5
[2024-10-17] MEDS: AMOXICILLIN/POT CLAV 875-125 MG TABLET 1 TAB PO (17:38)
[2024-10-17] MEDS: ADACEL DIPH,PERTUSS(ACELL),TET VAC/PF 0.5 ML ADULT SYRINGE IM (17:39)
[2024-10-17] MEDS: LIDOCAINE/EPINEPHRINE/TETRACAINE 3 ML GEL.PF.APP TOPICAL (18:00)
[2024-10-17] MEDS: LIDOCAINE HCL 1% 100 MG/10 ML MDV INJ (18:31)
[2024-10-17] MEDS: BACITRACIN 0.9 GM PACKET 1 PACKET TOPICAL (18:43)
[2024-10-17] MEDS: AMPICILLIN SODIUM/SULBACTAM NA 3 GM in 0.9 % SODIUM CHLORIDE 100 ML IV (18:43)
--- NOTE | 2024-10-17 19:19 | ED_ITS ---
HPI - Wound/Laceration General Chief Complaint: Wound/Laceration Stated Complaint: LACERATION Time Seen by Provider: 10/17/24 17:27 Source: patient Mode of arrival: ambulance Limitations: physical limitation History of Present Illness HPI narrative: 64-year-old female was brought to the emergency room by squad. Patient is wheelchair-bound at home due to a history of MS. She has a cat at home that got his foot stuck in a planter patient was trying to help the cat get out of the city planner and accidentally hit the arm on her wheelchair and drove her into the gate causing the cat to bite her and cut her as the cat was panicking because it was stuck in the city planner. Patient has a superficial laceration to the left lower chhaal, puncture wounds to the left ring finger and lower extremity. She is not up-to-date on tetanus immunization. The injuries occurred just prior to arrival. Puncture wounds are superficial as well as the laceration Related Data Previous Rx's ?Medication ?Instructions ?Recorded doxycycline hyclate 100 mg capsule 100 mg PO BID 7 day s #14 caps 10/13/23 amoxicillin 500 mg-potassium 1 tab PO BID #20 tabs 12/06 clavulanate 125 mg tablet (Augmentin) naproxen 500 mg tablet (Naprosyn) 500 mg PO BID PRN pa in #20 tabs 10/17/24 Allergies Allergy/AdvReac Type Severity Reaction Status Date / Time fingolimod (From [employer]) Allergy Mild Hives Verified 10/17/24 17:28 Review of Systems ROS Status of ROS 10 or more systems reviewed and unremark able except as noted in history and below PFSH PFSH Social History Little interest or pleasure in doing things: not at all Feeling down, depressed, or hopeless: not at all Exam Narrative Exam Narrative: All Systems are negative except as noted/marked.All systems reviewed and otherwise negative Nurses note and vital signs reviewed and patient is not hypoxic. General: The patient appears well and in no apparent distress. Patient is resting comfortably on cart. Skin: Warm, dry, no pallor noted. To the hand with a abrasion to the left finger status post cat injury, laceration to the left chahal approximately 1.5 cm with puncture wound to the leg as well Head: Normocephalic, atraumatic Eye: Normal conjunctiva, no drainage, EOMI. PERRL Ears, Nose, Mouth, and Throat: oral mucosa is moist. Nares patent. Mouth without vesicles. Ear canals patent. Tm's without Erythema Cardiovascular: Regular Rate and Rhythm Respiratory: Patient is in no distress, no accessory muscle use, lungs are clear to auscultation, no wheezing, rales or rhonchi Musculoskeletal: Lower chahal superficial 1 cm laceration, puncture wound status post cat claw, the patient has no evidence of calf tenderness, Neurological: A&O x4, normal speech Psychiatric: Cooperative Constitutional Vital Signs, click to edit/add: Last Vital Signs Temp 97.6 F 10/17/24 19:50 Pulse 63 10/17/24 19:50 Resp 16 10/17/24 19:50 BP 148/85 H 10/17/24 19:50 Pulse Ox 96 10/17/24 19:50 O2 Del Method Room Air 10/17/24 19:50 Course Vital Signs Vital signs: Vital Signs Temperature 98.8 F 10/17/24 17:21 Pulse Rate 78 10/17/24 17:21 Respiratory Rate 16 10/17/24 17:21 Blood Pressure 160/104 H 10/17/24 17:21 Pulse Oximetry 96 10/17/24 17:21 Oxygen Delivery Method Room Air 10/17/24 17:21 Temperature 97.6 F 10/17/24 19:50 Pulse Rate 63 10/17/24 19:50 Respiratory Rate 16 10/17/24 19:50 Blood Pressure 148/85 H 10/17/24 19:50 Pulse Oximetry 96 10/17/24 19:50 Oxygen Delivery Method Room Air 10/17/24 19:50 MDM - Wound/Laceration MDM Narrative Medical decision making narrative: 64-year-old female was brought to the emergency room by squad. Patient is wheelchair-bound at home due to a history of MS. She has a cat at home that got his foot stuck in a planter patient was trying to help the cat get out of the city planner and accidentally hit the arm on her wheelchair and drove her into the gate causing the cat to bite her and cut her as the cat was panicking because it was stuck in the city planner. Patient has a superficial laceration to the left lower chahal, puncture wounds to the left ring finger and lower extremity. She is not up-to-date on tetanus immunization. The injuries occurred just prior to arrival. Puncture wounds are superficial as well as the laceration Room, patient's wound were assessed, let solution was applied to the left lower leg 1.5 cm laceration, left hand and leg were cleaned and irrigated with Hibiclens normal saline. Left lower extremity was then anesthetized with 1% lidocaine solution locally. 2 simple sutures with 4-0 Ethilon were used to reapproximate wound. She has 1 cm laceration and another centimeter laceration lateral to that both had 1 superficial 4-0 Ethilon suture repair x 1. Patient was medicated here with Augmentin. Patient does have a history of MS. Patient was then prophylactically given a boost of antibiotics with IV ring finger began to swell post injury. Patient will be discharged home with 2 [place] to go, Naprosyn and also Augmentin. Arrangements with a wheelchair van are being made and patient will be transported home that way. Differential Diagnosis Differential diagnosis: Likely laceration and other (cat bite) Medical Records Attestation: I reviewed the patient's medical records. Lab Data Attestation: I reviewed the patient's lab results. Discharge Plan Discharge Chief Complaint: Wound/Laceration Clinical Impression: Laceration, Skin tear, Cat bite Patient Disposition: Home, Self-Care Time of Disposition Decision: 17:44 Prescriptions / Home Meds: New naproxen [Naprosyn] 500 mg tablet 500 mg PO BID PRN (Reason: pain) Qty: 20 0RF amoxicillin-pot clavulanate [Augmentin] 500-125 mg tablet 1 tab PO BID Qty: 20 0RF No Action doxycycline hyclate 100 mg capsule 100 mg PO BID 7 Days Qty: 14 0RF Print Language: Malawian Instructions: Animal Bite (ED) Referrals: ERASTO FAY [Primary Care Provider, Family Practice] - 1 week Discharge Date/Time: 10/17/24 19:51
[2024-10-17] MEDS: HYDROCODONE/ACET 5-325 MG TABLET 2 TAB PO (19:33)
[2024-10-17 19:50] VITALS: BP 148/85; PULSE 63; TEMP 36.4; O2SAT 96
== END 2024-10-17 19:51 | disposition home or self-care (01) ==
PROVIDERS: Emergency Provider Emergency Medicine; PCP Family Medicine
DX: S81.812A Laceration without foreign body, left lower leg, initial encounter (principal); W55.03XA Scratched by cat, initial encounter; S81.832A Puncture wound without foreign body, left lower leg, initial encounter; S61.235A Puncture wound without foreign body of left ring finger without damage to nail, initial encounter; W55.01XA Bitten by cat, initial encounter; G35 Multiple sclerosis; Z99.3 Dependence on wheelchair; Z23 Encounter for immunization
CPT/HCPCS: 12002; 90471; 90715; 96365; 99284; J0295

== ENCOUNTER 2025-04-23 10:30 | Outpatient (OUT) | payer OTHER, SELFPAY ==
--- OUTSIDE RECORDS SUMMARY | 2025-04-13 11:20 | XMS_ITS | Encounter Summary ---
Author Organization [facility] Healthcare Address [address] [facility] [place] [address] Care Team Providers Care Fitter Up Name Role Phone Sean Williamson MD Primary Care Provider [phone] Encounter Details DateTypeDepartmentCare Team (Latest Contact Info)Ekxecrrbgaf57/31/2025 12:20 PM EDTOffice Visit [facility] [address] [facility] [address] [place] [address] Roberto Dhaliwal MD [address] [facility] [address] [id number] Multiple sclerosis (Primary Dx) Social History Tobacco UseTypesPacks/DayYears UsedDateSmoking Tobacco: NeverSmokeless Tobacco: NeverAlcohol UseStandard Drinks/WeekCommentsNever0 (1 standard drink = 0.6 oz pure alcohol)CommentsUnknownSex and Gender InformationValueDate Recorded Sex Assigned at BirthNot on fileLegal IygBzqrqs25/15/2023 7:06 PM EDTGender IdentityNot on fileSexual OrientationNot on filedocumented as of this encounter Last Filed Vital Signs Vital SignReadingTime TakenCommentsBlood Pressure--Pulse--Temperature-- Respiratory Rate--Oxygen Saturation--Inhaled Oxygen Concentration--Weight-- Xgzldp894.1 cm (5' 5 )04/13/2025 12:31 PM EDTBody Mass Index--documented in this encounter Progress Notes * Roberto Dhaliwal MD - 04/13/2025 12:20 PM EDT Images from the original note were not included. Subjective Teresita Baker is a 65 y.o. female who presents for multiple sclerosis. Unable to get weight todaydue to not being able to stand and wheelchair bound. She states she can pivet as long she has something to hold onto, She states she has had to do everything on her own for the last 4 years. She usedto have home health aides come in and she states she aged out and not able to get any more help. States they wanted her to go on passport but she cannot get medicare yet. She states she was a previous Dr. Jun Dhaliwal patient and he was the one who diagnosed her in 1983 with multiple sclerosis. She states she did see Dr. Kelly but only once for MS. She was seeing her for botox for the legs. Shestates she has had shingles in the past. She states she the Botox helped in the beginning. She did it for over 3 years. She has tried and failed multiple DVTs in the past including Avonex, Copaxone, Betaseron, Gilenya and Tysabri. She last did Lemtrada. She did amprya for 8-10 years but is not sure why she stopped it.She states that it did help with her legs and walking. She states she has been off of it while and she had done therapy many years ago with it and it helped. History of Present Illness The patient presents for evaluation of multiple sclerosis. She was diagnosed with multiple sclerosis in 1983. Her last MRI was conducted in 2023. She reports that no medication has been effective in managing her condition. She recalls a previous treatment with Ampyra, which was discontinued due to the onset of dizziness. Her symptoms fluctuate, with some days being better than others. Over the past 5 years, she has noticed a progression in her condition,particularly since 2020, following the of her son. She is unable to stand or pivot and requires assistance for toilet transfers. Her last medication was Lemtrada, which initially provided relief but had to be stopped due to a positive test result. She is currently on thyroid medication and has a heart condition. She is open to trying new treatments. She has not experienced any severe attacks but feels a slow, mild progression of her symptoms. She does not have home health care and pays $25 for transportation to and from doctor's appointments. Her last blood work was done 3 years ago. She has had recurrent shingles and is considering the Shingrix vaccine. It has been a few years since her last shingles episode, but she still bears the scars. MEDICATIONS CURRENT MEDS: Thyroid Medicine Heart Medicine PREVIOUS MEDS: Lemtrada Reason for Discontinuation: Tested positive for a condition and developed thyroid and heart problems. Impairment Reason for Discontinuation: Made the patient dizzy. Review of Systems Constitutional: Positive for fatigue. Negative for chills, diaphoresis and fever. HENT: Negative for ear pain, tinnitus and trouble swallowing. Eyes: Negative for photophobia and visual disturbance. Respiratory: Negative for cough and shortness of breath. Cardiovascular: Negative for palpitations and leg swelling. Gastrointestinal: Negative for abdominal pain and nausea. Genitourinary: Negative for difficulty urinating and urgency. Musculoskeletal: Positive for gait problem. Negative for arthralgias, back pain, myalgias, neck pain and neck stiffness. Neurological: Positive for weakness. Negative for tremors, light-headedness and numbness. Psychiatric/Behavioral: Negative for agitation, confusion and suicidal ideas. Objective Height 5' 5 . Physical Exam Motor Examination Strength: Hand strength is normal. GENERAL EXAMINATION Appearance: in no acute distress, well developed, well nourished. Head: normocephalic, atraumatic. Eyes: pupils equal, round, reactive to light and accommodation. Ears: normal. Mouth: mucosa moist. Throat: clear. Neck: neck supple, full range of motion, no cervical lymphadenopathy. Skin: no suspicious lesions, warm and dry. Heart: no murmurs, regular rate and rhythm, S1, S2 normal. Lungs: clear to auscultation bilaterally. Abdomen: normal, bowel sounds present, soft, nontender, nondistended. Extremities: no clubbing, cyanosis, or edema. NEUROLOGICAL EXAMINATION Mental Status: The patient is alert and oriented to person, place, and time. Except as noted, thought content, form, and comprehension was normal. Phonation, articulation, resonance, and prosody are normal. Cranial Nerves: Pupils were 4.0 millimeters, equal, round, and reactive to light and accommodation,both directly and consensually. Visual vasquez were full by confrontation. There was no ptosis; extra-ocular movements were full; and there was no nystagmus. Funduscopic exam is normal. Masseters are of normal strength. Facial movement is normal. Hearing is grossly intact. There is no dysarthria. The gag reflex is equal bilaterally. Sternocleidomastoids and trapezii are of normal strength. The tongue protrudes in the midline. Motor: Muscle testing was performed in all four extremities, including at least meter reader chief, finger abductors, biceps, triceps, deltoid, toe flexors and extensors, tibialis anterior, triceps surae, quadriceps femoris, biceps femoris, and iliopsoases. Tone is normal. Muscle bulk is normal. Fasciculations are not seen . Pronator drift was not evident. Sensory: Sensation to touch, temperature, and vibration was normal in the arms, legs and face. Romberg is negative. Reflexes: Biceps, triceps, brachioradialis are 2/4 bilaterally. Patellar and Achilles reflexes are 2/4 bilaterally. Plantar responses were flexor bilaterally. Coordination: Dysmetria and dysdiadochokinesia are absent. Tremor is absent; dystonia is absent; chorea is absent. Gait And Station: Station and gait are normal. Apraxia and spasticity are not evident. Arm swing isnormal. Toe, heel, and tandem walking are performed without difficulty. Musculoskeletal: Trigger-point tenderness was absent. There is no spasm of the trapezii or paraspinals. Results Assessment & Plan 1. Multiple Sclerosis. The patient's condition has shown significant progression over the past 5 years, with a notable decline in mobility and increased difficulty in performing daily activities. She reports being unable to stand, pivot, or transfer to the toilet since 2020. The potential benefits and risks of Mavenclad were discussed, including its mechanism as a stem cell rebooter and the treatment regimen of oral tablets taken for 2 weeks in the first year, followed by a 10-month break, and then another 2 weeks inthe second year. She expressed willingness to try Mavenclad. Blood work will be ordered to monitor her response to the medication, and her weight will be used to determine the appropriate dosage. Follow-up blood work will be scheduled every 6 months to monitor for any return of MS cells. 2. Recurrent Shingles. She reports having recurrent shingles episodes in the past but has not had an episode in a few years. The Shingrix vaccine was recommended to help prevent future occurrences. She was advised to get the vaccine at her convenience, possibly at a local pharmacy like [facility]. This clinical note was created utilizing Risk Ident documentation system. All information has beenthoroughly reviewed, corrected as necessary, and authenticated by the provider to ensure accuracy and completeness. On occasion, [employer]AY[employer] ambient documentation system erroneously drops words or replaces aspoken word with a similar sounding word. Please notify with any questions or concerns regarding this clinical note. documented in this encounter Plan of Treatment DateTypeDepartmentCare Team (Latest Contact Info)Rffxkpxafbz11/05/2026 9:50 AM ESTOffice Visit [facility] [address] [facility] [address] [place] [address] Roberto Dhaliwal MD [address] [facility] [address] [address] NameTypePriorityAssociated DiagnosesOrder ScheduleCBC and differentialLabRoutine Multiple sclerosis (HCC) Expected: 04/13/2025 (Approximate), Expires: 04/13/2026QUANTIFERON TB GOLDLab Routine Multiple sclerosis (HCC) Expected: 04/13/2025 (Approximate), Expires: 04/13/2026omprehensive metabolic panelLabRoutine Multiple sclerosis (HCC) Expected: 04/13/2025 (Approximate), Expires: 04/13/2026STRATIFY JCV(TM) AB (WITH INDEX) W/RFL INHIBITIONLabRoutine Multiple sclerosis Expected: 04/13/2025 (Approximate), Expires: 04/13/2026Hepatic function panelLab Routine Multiple sclerosis Expected: 04/13/2025 (Approximate), Expires: 04/13/2026Varicella zoster antibody, IgMLabRoutine Multiple sclerosis Expected: 04/13/2025 (Approximate), Expires: 04/13/2026Varicella zoster antibody, IgGLabRoutine Multiple sclerosis Expected: 04/13/2025 (Approximate), Expires: 04/13/2026HIV 1/2 ANTIGEN/ANTIBODY, 4TH GEN W/RFL,SCREENINGLabRoutine Multiple sclerosis Expected: 04/13/2025 (Approximate), Expires: 04/13/2026Hepatitis C antibodyLab Routine Multiple sclerosis Expected: 04/13/2025 (Approximate), Expires: 04/13/2026Hepatitis B core antibody, IgMLabRoutine Multiple sclerosis Expected: 04/13/2025 (Approximate), Expires: 04/13/2026Hepatitis B surface antigenLabRoutine Multiple sclerosis Expected: 04/13/2025 (Approximate), Expires: 04/13/2026documented as of this encounter Visit Diagnoses Diagnosis Multiple sclerosis- Primary documented in this encounter Care Teams Team MemberRelationshipSpecialtyStart DateEnd Date Sean Williamson MD [address] [place] [address] PCP - GeneralFamily Rjknqccg34/12/24documented as of this encounter
--- OUTSIDE RECORDS SUMMARY | 2025-04-23 10:32 | XMS_ITS | Encounter Summary ---
Author Organization [facility] Address [address] [facility] [place] [address] Care Team Providers Care Maintenance Mechanic Elevators Name Role Phone Erasto Fay MD Primary Care Provider [phone] Erasto Fay MD Primary Care Provider [phone] Encounter Details DateTypeDepartmentCare Team (Latest Contact Info)Hrnovxriicz05/03/2024Clinisync Result Encounter [facility] External Department Unsolicited Jennifer Santos NP Social History Tobacco UseTypesPacks/DayYears UsedDateSmoking Tobacco: Never Assessed CommentsUnknownSex and Gender InformationValueDate RecordedSex Assigned at Not on fileLegal RwlKiempf59/15/2023 7:06 PM EDTGender IdentityNot on fileSexual OrientationNot on filedocumented as of this encounter Plan of Treatment DateTypeDepartmentCare Team (Latest Contact Info)Vefugkwacxe42/05/2026 9:50 AM ESTOffice Visit [facility] [address] [facility] [address] [place] [address] Roberto Dhaliwal MD [address] [facility] [address] [place] [address] [place] [phone] documented as of this encounter Procedures Procedure NamePriorityDate/TimeAssociated DiagnosisCommentsMRI HEAD/BRAIN WO/W CONTR09/15/2023 3:08 PM EDT documented in this encounter Results * MRI HEAD/BRAIN WO/W CONTR (09/15/2023 3:08 PM EDT)Anatomical RegionLaterality ModalityRadiographic ImagingSpecimen (Source)Anatomical Location / Laterality Collection Method / VolumeCollection TimeReceived Time09/15/2023 3:08 PM EDT Narrative 09/15/2023 3:11 PM EDT [facility] ?[address] ? [place] [address] ? Magnetic Resonance Report ? Signed ? Patient: Jhony Iyer ?MR#: [id number] ?? : 1960 ?Acct:[id number] ?? Age/Sex: 63 / F ?ADM Date: 09/15/23 ?? Loc: MRI ? Attending Dr: Jennifer Santos SNOWBOARDING INSTRUCTOR ? Ordering Physician: Jennifer Santos NP ?? Date of Service: 09/15/23 ?? Procedure(s): MR head/brain wo/w con ?? Accession Number(s): [id number] ? cc: Jennifer Santos NP; ERASTO FAY ? [facility] ? [address] ? [place] [address] ? Patient Name: ?? JHONY J SHIREEN ? MRN: [facility]:[id number] ? date: 1960 ?Sex: F ?? Assigned Patient Location: MRI ?? Current Patient Location: MRI ?? Accession/Order Number: [id number] ?? Exam Date: 09/15/2023 ??12:45 ?Report Date: 09/15/2023 ??15:08 ? At the request of: ?? JENNIFER ??TOM ? Procedure: ??MR head/brain wo/w con ? EXAM: MR head/brain wo/w con ? CLINICAL INDICATION: multiple sclerosis G35 ? COMPARISON: MRI brain 10/13/2021. ? TECHNIQUE/PROTOCOL: Standard pre and postcontrast MS protocol brain MRI ?? performed. ? CONTRAST: 15 mL of Dotarem. ? FINDINGS: ?? Multiple nonenhancing supratentorial hyperintense T2/FLAIR periventricular and ? subcortical white matter foci have not substantially changed in size, number, ?? or signal characteristics since 10/13/2021. Several of these demonstrates ?? hypointense T1 signal. No new foci or interval corpus callosum volume loss. ? No restricted diffusion, extra-axial fluid collection, hydrocephalus, midline ?? shift, or other mass effect. Intracranial flow voids are maintained. Unchanged ? mild to moderate symmetric global volume loss without lobar predominance. ?? Commensurate ventricular system caliber prominence. No abnormal leptomeningeal ? or dural enhancement. ? Normal marrow signal. No soft tissue abnormalities. Paranasal sinuses and ?? mastoid air cells are well-aerated. ? MR/MR head/brain wo/w con ?? IMPRESSION: ?? Multiple nonenhancing supratentorial hyperintense T2/FLAIR white matter foci, ?? in keeping with history of multiple sclerosis, have not substantially changed ?? since 10/13/2021. No new foci, restricted diffusion, or abnormal intracranial ?? enhancement. ? Electronically authenticated by: PAMELA ??TAMARA ?? Date: 09/15/2023 ??15:08 ? Dictated By: ?Pamela Pfeiffer M.D. ? Signed By: ?09/15/23 1511 ? DD/ 1508 ? TD/TT: ? Mechanical Service Specialist: Procedure Note Radiology, Radiologist, - 09/15/2023 [place] [address] Magnetic Resonance Report Signed Patient: Jhony Iyer R#: [id number] : 1960cct:[id number] Age/Sex: 63 / FADM Date: 09/15/23 Loc: MRI Attending Dr: Jennifer Santos NP Ordering Physician: Jennifer Santos NP Date of Service: 09/15/23 Procedure(s): MR head/brain wo/w con Accession Number(s): [id number] cc: Jennifer Santos SNOWBOARDING INSTRUCTOR; ERASTO FAY [facility] [place] [id number] Patient Name: JHONY IYER MRN: [id number] date: 1960 Sex: F Assigned Patient Location: MRI Current Patient Location: MRI Accession/Order Number: [id number] Exam Date: 09/15/2023 12:45 Report Date: 09/15/2023 15:08 At the request of: JENNIFER SANTOS Procedure: MR head/brain wo/w con EXAM: MR head/brain wo/w con CLINICAL INDICATION: multiple sclerosis G35 COMPARISON: MRI brain 10/13/2021. TECHNIQUE/PROTOCOL: Standard pre and postcontrast MS protocol brain MRI performed. CONTRAST: 15 mL of Dotarem. FINDINGS: Multiple nonenhancing supratentorial hyperintense T2/FLAIR periventricularand subcortical white matter foci have not substantially changed in size,number, or signal characteristics since 10/13/2021. Several of these demonstrates hypointense T1 signal. No new foci or interval corpus callosum volumeloss. No restricted diffusion, extra-axial fluid collection, hydrocephalus,midline shift, or other mass effect. Intracranial flow voids are maintained.Unchanged mild to moderate symmetric global volume loss without lobar predominance. Commensurate ventricular system caliber prominence. No abnormalleptomeningeal or dural enhancement. Normal marrow signal. No soft tissue abnormalities. Paranasal sinuses and mastoid air cells are well-aerated. MR/MR head/brain wo/w con IMPRESSION: Multiple nonenhancing supratentorial hyperintense T2/FLAIR white matterfoci, in keeping with history of multiple sclerosis, have not substantiallychanged since 10/13/2021. No new foci, restricted diffusion, or abnormalintracranial enhancement. Electronically authenticated by: PAMLEA PFEIFFER Date: 09/15/2023 15:08 Dictated By: Pamela Pfeiffer M.D. Signed By:09/15/23 1511 DD/ 1508 TD/TT: Mechanical Service Specialist: Authorizing ProviderResult TypeResult StatusAngekeyshawn Santos NPIMG XR PROCEDURES Final Result documented in this encounter Visit Diagnoses Not on filedocumented in this encounter Care Teams Team MemberRelationshipSpecialtyStart DateEnd Date Erasto Fay MD PCP - GeneralFamily Medicine08/30/2410 Erasto Fay MD [address] [place] [id number] PCP - GeneralFamily Vazymwwj67/12/24documented as of this encounter
--- OUTSIDE RECORDS SUMMARY | 2025-04-23 10:32 | XMS_ITS | Encounter Summary ---
Author Organization [facility] Address [address] [facility] [place] [address] Care Team Providers Care Swedish Masseuse Name Role Phone Erasto Fay MD Primary Care Provider [phone] Erasto Fay MD Primary Care Provider [phone] Encounter Details DateTypeDepartmentCare Team (Latest Contact Info)Oyygyrwiesu44/03/2024Clinisync Result Encounter [facility] Unsolicited Jennifer Santos NP Social History Tobacco UseTypesPacks/DayYears UsedDateSmoking Tobacco: Never Assessed CommentsUnknownSex and Gender InformationValueDate RecordedSex Assigned at Not on fileLegal LtfAlgzic48/15/2023 7:06 PM EDTGender IdentityNot on fileSexual OrientationNot on filedocumented as of this encounter Plan of Treatment DateTypeDepartmentCare Team (Latest Contact Info)Yzaihfxounc72/05/2026 9:50 AM ESTOffice Visit [facility] [address] [facility] [address] [place] [address] Roberto Dhaliwal MD [address] [facility] [address] [place] [address] [place] [address] [phone] documented as of this encounter Procedures Procedure NamePriorityDate/TimeAssociated DiagnosisCommentsMR CERVICAL SPINE WO/W CON09/15/2023 3:25 PM EDT documented in this encounter Results * MR CERVICAL SPINE WO/W CON (09/15/2023 3:25 PM EDT)Anatomical RegionLaterality ModalityOtherSpecimen (Source)Anatomical Location / LateralityCollection Method / VolumeCollection TimeReceived Time09/15/2023 3:25 PM EDT Narrative 09/15/2023 3:28 PM EDT [facility] ?[address] ? [place] [address] ? Magnetic Resonance Report ? Signed ? Patient: Jhony Iyer ?MR#: [id number] ?? : 1960 ?Acct:[id number] ?? Age/Sex: 63 / F ?ADM Date: 09/15/23 ?? Loc: MRI ? Attending Dr: Jennifer Santos NP ? Ordering Physician: Jennifer Santos NP ?? Date of Service: 09/15/23 ?? Procedure(s): MR cervical spine wo/w con ?? Accession Number(s): [id number] ? cc: Jennifer Santos NP; ERASTO FAY ? [facility] ? [address] ? [place] [address] ? Patient Name: ?? JHONYRA Breanna BAGLEYRICK ? MRN: [facility]:[id number] ? date: 1960 ?Sex: F ?? Assigned Patient Location: MRI ?? Current Patient Location: MRI ?? Accession/Order Number: [id number] ?? Exam Date: 09/15/2023 ??12:45 ?Report Date: 09/15/2023 ??15:25 ? At the request of: ?? JENNIFER ??TOM ? Procedure: ??MR cervical spine wo/w con ? EXAM: MR cervical spine wo/w con ? CLINICAL INDICATION: multiple sclerosis G35 ? COMPARISON: MRI cervical spine 10/13/2021. ? TECHNIQUE/PROTOCOL: Standard protocol cervical spine pre and post contrast MRI ? performed. ? FINDINGS: ?? Spinal Cord: Normal in caliber. The ill-defined scattered hyperintense T2/STIR ? signal in the cord from C2 to C5 has not substantially changed since 10/13/2021. ? No abnormal cord enhancement or discrete new cord signal abnormality. ?? Epidural Hematoma: None. ?? Alignment: Normal cervical spine alignment and craniocervical junction. ?? Marrow Signal: Normal. ?? Vertebral Body Heights: Maintained. ?? Paraspinal Soft Tissues: Normal. ?? Neck Soft Tissues: Normal. ?? Spondylotic Changes: Multilevel spondylotic changes include diffuse disc ?? desiccation and varying degrees of intervertebral disc height loss, ?? osteophytic ?? ridging, and facet/uncovertebral joint hypertrophy. ? C2-C3: No disc bulge or herniation. No high-grade spinal canal or foraminal ?? narrowing. ? C3-C4: Disc osteophyte complex effaces the ventral thecal sac and flattens the ? ventral spinal cord surface. Moderate spinal canal narrowing. Advanced ?? bilateral foraminal narrowing is contributed to by uncovertebral and facet ?? joint hypertrophy. ? C4-C5: Slight disc osteophyte complex contacts the left ventral spinal cord ?? surface. Mild spinal canal narrowing. Mild right and advanced left foraminal ?? narrowing is contributed to by uncovertebral and facet joint hypertrophy. ? C5-C6: Disc osteophyte complex indents the ventral thecal sac. Mild spinal ?? canal narrowing. Right foramen is patent. Mild left foraminal narrowing is ?? contributed to by uncovertebral and facet joint hypertrophy. ? C6-C7: Slight disc osteophyte complex indents the ventral thecal sac. Mild ?? spinal canal narrowing. Mild right and advanced left foraminal narrowing is ?? contributed to by uncovertebral and facet joint hypertrophy. ? C7-T1: No disc bulge or herniation. No high-grade spinal canal or foraminal ?? narrowing. ? MR/MR cervical spine wo/w con ?? IMPRESSION: ?? 1. The ill-defined scattered hyperintense T2/STIR signal in the cord from C2 ?? to ?? C5 has not substantially changed since 10/13/2021. No abnormal cord enhancement ?? or discrete new cord signal abnormality. ? 2. Multilevel spondylotic changes without high-grade spinal canal narrowing at ? any cervical level. ? 3. Spinal canal narrowing is at most moderate at C3-C4. ? 4. Foraminal narrowing is advanced bilaterally at C3-C4 as well as on the left ? at C4-C5 and C6-C7, contributed to by uncovertebral and facet hypertrophy. ? Electronically authenticated by: PAMELA ??TAMARA ?? Date: 09/15/2023 ??15:25 ? Dictated By: ?Pamela Pfeiffer M.D. ? Signed By: ?09/15/23 1528 ? DD/ 1525 ? TD/TT: ? Fire Officer: Procedure Note Radiology, Radiologist, MD - 09/15/2023 [facility] [address] [place] [address] Magnetic Resonance Report Signed Patient: Jhony Iyer JMR#: [id number] : 1960cct:[id number] Age/Sex: 63 / FADM Date: 09/15/23 Loc: MRI Attending Dr: Jennifer Santos NP Ordering Physician: Jennifer Santos NP Date of Service: 09/15/23 Procedure(s): MR cervical spine wo/w con Accession Number(s): [id number] cc: Jennifer Santos [employer]; ERASTO FAY [facility] [place] [address] Patient Name: JHONY IYER MRN: [facility]:[id number] date: 1960 Sex: F Assigned Patient Location: MRI Current Patient Location: MRI Accession/Order Number: [id number] Exam Date: 09/15/2023 12:45 Report Date: 09/15/2023 15:25 At the request of: JENNIFER SANTOS Procedure: MR cervical spine wo/w con EXAM: MR cervical spine wo/w con CLINICAL INDICATION: multiple sclerosis G35 COMPARISON: MRI cervical spine 10/13/2021. TECHNIQUE/PROTOCOL: Standard protocol cervical spine pre and post contrastMRI performed. FINDINGS: Spinal Cord: Normal in caliber. The ill-defined scattered hyperintenseT2/STIR signal in the cord from C2 to C5 has not substantially changed since10/13/2021. No abnormal cord enhancement or discrete new cord signal abnormality. Epidural Hematoma: None. Alignment: Normal cervical spine alignment and craniocervical junction. Marrow Signal: Normal. Vertebral Body Heights: Maintained. Paraspinal Soft Tissues: Normal. Neck Soft Tissues: Normal. Spondylotic Changes: Multilevel spondylotic changes include diffuse disc desiccation and varying degrees of intervertebral disc height loss, osteophytic ridging, and facet/uncovertebral joint hypertrophy. C2-C3: No disc bulge or herniation. No high-grade spinal canal orforaminal narrowing. C3-C4: Disc osteophyte complex effaces the ventral thecal sac and flattensthe ventral spinal cord surface. Moderate spinal canal narrowing. Advanced bilateral foraminal narrowing is contributed to by uncovertebral and facet joint hypertrophy. C4-C5: Slight disc osteophyte complex contacts the left ventral spinalcord surface. Mild spinal canal narrowing. Mild right and advanced leftforaminal narrowing is contributed to by uncovertebral and facet joint hypertrophy. C5-C6: Disc osteophyte complex indents the ventral thecal sac. Mild spinal canal narrowing. Right foramen is patent. Mild left foraminal narrowing is contributed to by uncovertebral and facet joint hypertrophy. C6-C7: Slight disc osteophyte complex indents the ventral thecal sac. Mild spinal canal narrowing. Mild right and advanced left foraminal narrowingis contributed to by uncovertebral and facet joint hypertrophy. C7-T1: No disc bulge or herniation. No high-grade spinal canal orforaminal narrowing. MR/MR cervical spine wo/w con IMPRESSION: 1. The ill-defined scattered hyperintense T2/STIR signal in the cord fromC2 to C5 has not substantially changed since 10/13/2021. No abnormal cordenhancement or discrete new cord signal abnormality. 2. Multilevel spondylotic changes without high-grade spinal canalnarrowing at any cervical level. 3. Spinal canal narrowing is at most moderate at C3-C4. 4. Foraminal narrowing is advanced bilaterally at C3-C4 as well as on theleft at C4-C5 and C6-C7, contributed to by uncovertebral and facet hypertrophy. Electronically authenticated by: PAMELA PFEIFFER Date: 09/15/2023 15:25 Dictated By: Pamela Pfeiffer M.D. Signed By:09/15/23 1528 DD/ 1525 TD/TT: Fire Officer: Authorizing ProviderResult TypeResult StatusAngela Anyinjarrod NPCLINISYNC IMAGING Final Result documented in this encounter Visit Diagnoses Not on filedocumented in this encounter Care Teams Team MemberRelationshipSpecialtyStart DateEnd Date Erasto Fay MD PCP - GeneralFamily Medicine08/30/2410 Erasto Fay MD [address] [place] [address] PCP - GeneralFamily Hzrqltty25/12/24documented as of this encounter
--- OUTSIDE RECORDS SUMMARY | 2025-04-23 10:32 | XMS_ITS | Encounter Summary ---
Author Organization [facility] Address [address] [facility] [place] [address] Care Team Providers Care Rock Star Name Role Phone Sean Williamson MD Primary Care Provider [phone] Encounter Details DateTypeDepartmentCare Team (Latest Contact Info)Vwrmubnvyzi15/31/2025amboo flowsheet [facility] [address] [facility] [place] [address] Roberto Dhaliwal MD [address] [place] [address] [place] [address] [phone] Social History Tobacco UseTypesPacks/DayYears UsedDateSmoking Tobacco: NeverSmokeless Tobacco: NeverAlcohol UseStandard Drinks/WeekCommentsNever0 (1 standard drink = 0.6 oz pure alcohol)CommentsUnknownSex and Gender InformationValueDate Recorded Sex Assigned at BirthNot on fileLegal LcbXryvnj75/15/2023 7:06 PM EDTGender IdentityNot on fileSexual OrientationNot on filedocumented as of this encounter Plan of Treatment DateTypeDepartmentCare Team (Latest Contact Info)Lmdhacqgmrs88/05/2026 9:50 AM ESTOffice Visit [facility] [address] [facility] [address] [place] [address] Roberto Dhaliwal MD [address] [place] [address] [place] [address] [phone] documented as of this encounter Visit Diagnoses Not on filedocumented in this encounter Care Teams Team MemberRelationshipSpecialtyStart DateEnd Date Sean Williamson MD [address] [place] [address] PCP - GeneralFamily Gdfjdbkc89/12/24documented as of this encounter
--- OUTSIDE RECORDS SUMMARY | 2025-04-23 10:32 | XMS_ITS | Clinical Summary ---
Author Organization [facility] Address [address] [place] [address] Care Team Providers Care Bottle Dealer Name Role Phone Sean Williamson MD Primary Care Provider [phone] Allergies Active AllergyReactionsCriticalityNoted HpgsXqjpeexiGbtwdksllj34/17/2019 AooygapevbwbxXeibn97/08/2017 Medications MedicationSigDispense QuantityRefillsLast FilledStart DateEnd DateStatus metoprolol succinate XL (Toprol-XL) 25 MG 24 hr tablet Take 1 tablet by mouth Daily Do not crush or chew.Active Misc. Devices (Commode) misc Commode toilet lift chairActive loperamide (Imodium A-D) 2 MG tablet Take 1 tablet by mouth 4 (four) times a day as needed for diarrheaActive Magnesium 300 MG capsule Take 1 capsule by mouth Daily With a mealActive cholecalciferol (Vitamin D-3) 50 MCG (1999 UT) tablet Take 1 tablet by mouth DailyActive ascorbic acid (Vitamin C) 500 MG ER capsule Take by mouthActive Potassium 99 MG tablet Take 1 tablet by mouth DailyActive Misc. Devices (Wheelchair) misc Active UNABLE TO FIND Indications:Multiple SclerosisMed Name: Handicap placardActive UNABLE TO FIND Med Name: Hospital bedActive Dalfampridine ER (Ampyra) 10 MG tablet sustained-release 12 hour Take 1 tablet by mouth every 12 (twelve) hoursActive alendronate (Fosamax) 70 MG tablet Take 70 mg by mouth every 7 (seven) days10/19/2023ctive levothyroxine (Synthroid, Levoxyl) 75 MCG tablet Take 75 mcg by mouth in the morning. Take before meals.10/14/2023ctive Active Problems ProblemNoted DateDiagnosed DateHemiplegia, spastic, dominant side09/06/2020 Hemiplegia, spastic, nondominant side09/06/2020pastic hemiparesis of left nondominant side1340Vtgjhkwi22/20/9392Pfurljshgj56/20/2019Numbness and lckemine03/20/5215Tpfnttbl15/20/2019Muscle weakness (generalized)05/28/2015 Vitamin D votnjghwiw70/30/2013Gait rmcwdvqwojr07/29/2013Nonspecific findings on examination of blood07/25/2012Subjective visual ygdmtjkzygt19/15/2009Neuropathy 11/08/2008Multiple cszzjksro61/06/9252Plhtjqgq17/06/2008Muscle spasm03/19/2008 Encounters DateTypeDepartmentCare AdmkOiqauppgdkb86/31/2025 12:20 PM EDTOffice Visit [facility] [address] [place] [address] Roberto Dhaliwal MD Multiple sclerosis (Primary Dx)04/13/2025amboo flowsheet [facility] [address] [facility] [place] [address] Roberto Dhaliwal MD 04/13/20254914Emterv03/24/2025Travelfrom Last 3 Months Social History Tobacco UseTypesPacks/DayYears UsedDateSmoking Tobacco: NeverSmokeless Tobacco: Never Tobacco Cessation:Counseling Given: Not Answered Alcohol UseStandard Drinks/WeekCommentsNever0 (1 standard drink = 0.6 oz pure alcohol)CommentsUnknownSex and Gender InformationValueDate RecordedSex Assigned at BirthNot on fileLegal XtlRfvmap57/15/2023 7:06 PM EDTGender Identity Not on fileSexual OrientationNot on file Last Filed Vital Signs Vital SignReadingTime TakenCommentsBlood Odyqplcc614/6808 10:06 AM EDT Cqmvq1950/08/2024 10:06 AM EDTTemperature--Respiratory Pvjj459511/11/2023 11:01 AM EDTOxygen Mwvbzougdq38%01/20/2024 10:06 AM EDTInhaled Oxygen Concentration-- Weight--Xrrnlh041.1 cm (5' 5 )04/13/2025 12:31 PM EDTBody Mass Index-- Plan of Treatment DateTypeDepartmentCare Team (Latest Contact Info)Vocreajhgbr82/05/2026 9:50 AM ESTOffice Visit [facility] [place] [facility] [address] [facility] [address] [place] [address] Roberto Dhaliwal MD [address] [facility] [address] [place] [address] Insurance Care Teams Team MemberRelationshipSpecialtyStart DateEnd Sean Williamson MD [address] [place] [address] PCP - GeneralFamily Mejupjat31/12/24
--- OUTSIDE RECORDS SUMMARY | 2025-04-23 10:32 | XMS_ITS | Encounter Summary ---
Author Organization [facility] Address [address] [facility] [place] [address] Care Team Providers Care Casket Assembler Metal Name Role Phone Sean Williamson MD Primary Care Provider [phone] Encounter Details DateTypeDepartmentCare Team (Latest Contact Info)Uodwstfdxrp64/31/2025Travel Social History Tobacco UseTypesPacks/DayYears UsedDateSmoking Tobacco: NeverSmokeless Tobacco: NeverAlcohol UseStandard Drinks/WeekCommentsNever0 (1 standard drink = 0.6 oz pure alcohol)CommentsUnknownSex and Gender InformationValueDate Recorded Sex Assigned at BirthNot on fileLegal TusSshyau57/15/2023 7:06 PM EDTGender IdentityNot on fileSexual OrientationNot on filedocumented as of this encounter Plan of Treatment DateTypeDepartmentCare Team (Latest Contact Info)Omjtqktpveu31/05/2026 9:50 AM ESTOffice Visit [facility] [address] [facility] [address] [place] [address] Roberto Dhaliwal MD [address] [facility] [address] [address] documented as of this encounter Visit Diagnoses Not on filedocumented in this encounter Care Teams Team MemberRelationshipSpecialtyStart DateEnd Date Sean Williamson MD [address] [place] [address] PCP - GeneralFamily Opjwqghb40/12/24documented as of this encounter
--- OUTSIDE RECORDS SUMMARY | 2025-04-23 10:36 | XMS_ITS | CCD ---
Author Organization [facility] Care Team Providers Care [place] Detective Name Role Phone Mukesh Martínez Unavailable KIMO ROD Attending Unavailable KIMO ROD Admitting Unavailable ERASTO FAY Primary Care Unavailable MISC, DR RIOS Attending Unavailable MISC, DR RIOS Admitting Unavailable WEST, DR EDDY Contreras Consulting Unavailable CHRISTENSEN ., DR OK Johnson Primary Care Unavailable MISC, DR RIOS Consulting Unavailable MISC, DR RIOS Consulting Unavailable MISC, DR RIOS Admitting Unavailable CHRISTENSEN ., DR OK Johnson Primary Care Unavailable MISC, DR RIOS Attending Unavailable JUAN, DR FERNANDO Rich Consulting Unavailable SAL Leal Attending Provider MD Erasto Fay Primary Care Provider [phone] Celeste Leal Admitting Unavailable Celeste Leal Attending Unavailable Magen Fayuel Alex Primary Care Unavailable Erasto Fay Attending Unavailable Erasto Fay EMable Attending Unavailable Clay Erasto EMable Admitting Unavailable Clay Erasto EMable Admitting Unavailable Clay Erasto EMable Attending Unavailable Clay Erasto EMable Attending Unavailable Clay Erasto EMable Attending Unavailable Clay Erasto EMable Attending Unavailable Clay Erasto EMable Attending Unavailable Clay Erasto EMable Admitting Unavailable ElkePAYTON esposito Attending Unavailable Clay Erasto EMable Attending Unavailable Clay Erasto EMable Admitting Unavailable Erasto Fay EMable Attending Unavailable Marcus Bravo Attending Unavailable Marcus Bravo Attending Unavailable Clay Erasto EMable Referring Unavailable Clay Erasto EMable Attending Unavailable ElkePAYTON esposito Attending Unavailable Clay Erasto EMable Attending Unavailable Elke, PAYTON Cole Attending Unavailable Clay Erasto EMable Admitting Unavailable Erasto Fay. Attending Unavailable Erasto Fay MD Primary Care Provider Erasto Fay MD Primary Care Provider [phone] JETHRO DHALIWAL Attending Unavailable Allergies Allergy ClassificationReported Allergen(s)Allergy TypeDate of OnsetReaction(s) Facility (2 sources)teriflunomideDrug [id number] [facility] (1 source)muscle relaxors not allowedPropensity to adverse reactionsUnkCenterPointe Hospital [facility] Other (1 source)teriflunomideDrug [id number] (3 sources)No Known Medication Allergies; Translations: [No Known Medication Allergies]Propensity to adverse reactions (disorder)[facility] Repository (5 sources)fingolimodDrug [id number] (5 sources)teriflunomideDrug Qbxeivs05-05-4664AudnhSVQU [facility] Medications Current Medications MedicationDrug Class(es)DatesSig (Normalized)Sig (Original)acetaminophen 325 mg oral tablet (1 source)Start: 02-10-5722Wcllrqkbphjia (Tylenol) 325 mg Tablet Active 650 MG PO As Directed February 22, 2017 12:00amacetaminophen 325 mg / oxyCODONE hydrochloride 5 mg oral tablet (1 source)Opioid AgonistStart: 74-49-3704Kgnudrkwn-Acetaminophen (Percocet) 5- 325 mg Tablet Active 5 - 325 MG PO As Directed February 12:00am alendronic acid 70 mg oral tablet (4 sources)BisphosphonateStart: 91-40-2863lupkxvufqju (Fosamax) 70 MG tablet Take 70 mg by mouth every 7 (seven) days 10/19/2023 Activetake 1 tablet by mouth every weekAlendronate Sodium 70 MG TAKE ONE TABLET BY MOUTH ONCE WEEKLY Oral for 84 Days Activeamitriptyline hydrochloride 25 mg oral tablet (1 source)Tricyclic Antidepressanttake 1 tablet by mouth every twenty-four hours Amitriptyline HCl 25 MG 1 tablet at bedtime Orally Once a day Activeascorbic acid 500 mg extended release oral capsule (5 sources)Vitamin Cascorbic acid (Vitamin C) 500 MG ER capsule Take by mouth Activeatropine sulfate 0.025 mg / diphenoxylate hydrochloride 2.5 mg oral tablet (1 source)Anticholinergic, Cholinergic Muscarinic Antagonist, Antidiarrheal Start: 14-09-1594Jtdghelinueau-Atropine (Lomotil) 2.5-0.025 mg Tablet Active 2.5 MG PO As Directed February 22, 2017 12:00amcholecalciferol 0.05 mg oral tablet (5 sources)Vitamin Dtake 1 tablet by mouth once dailycholecalciferol (Vitamin D- 3) 50 MCG (1999 UT) tablet Take 1 tablet by mouth Daily Sdldun87 hr dalfampridine 10 mg extended release oral tablet (7 sources)Potassium Channel BlockerStart: 54-33-7203ryrn 1 tablet by mouth every twelve hoursDalfampridine (Ampyra) 10 mg Tablet Extended Release 12 Hr Active 10 MG PO Every 12 hours at 1000 & 2200 February 22, 2017 12:00am take 1 tablet by mouth every twelve hoursDalfampridine ER (Ampyra) 10 MG tablet sustained-release 12 hour Take 1 tablet by mouth every 12 (twelve) hours Active take 1 tablet by mouth every twelve hoursAmpyra 10 MG 1 tablet Orally Twice a day ActivediphenhydrAMINE hydrochloride 25 mg oral capsule (1 source)Histamine-1 Receptor AntagonistStart: 11-91-1015Uktthrztsosqnea Hcl (Benadryl) 25 mg Capsule Active 25 MG PO As Directed February 22, 2017 12:00a mergocalciferol 1.25 mg oral capsule (1 source)Provitamin D2 CompoundStart: 29-52-2606cfdw 1 capsule by mouth every weekErgocalciferol (Vitamin D2) (Vitamin D2) 50,000 unit Capsule Active 17503 UNITS PO every week February 22, 2017 12:00amfurosemide 20 mg oral tablet (2 sources)Loop DiureticStart: 60-56-6207vgag 20 mg by mouth once daily in the morningFurosemide Active 20 MG PO Every morning February 22, 2017 12:00amtake 1 tablet by mouth every other dayLasix 20 mg 1 tablet Orally every other day for 90 day(s) Not-Takinglevothyroxine sodium 0.075 mg oral tablet (4 sources)l-ThyroxineStart: 52-48-0216bvrl 1 tablet by mouth before mealtime levothyroxine (Synthroid, Levoxyl) 75 MCG tablet Take 75 mcg by mouth in the morning. Take before meals. 10/14/2023 Activetake 1 tablet by mouth once daily in the morningLevothyroxine Sodium 75 MCG 1 tablet on an empty stomach in the morning Orally Once a day Activeloperamide hydrochloride 2 mg oral tablet (6 sources)Opioid Agonisttake 1 tablet by mouth four times daily as needed for diarrhealoperamide (Imodium A-D) 2 MG tablet Take 1 tablet by mouth 4 (four) times a day as needed for diarrhea ActiveMagnesium (5 sources)take 1 capsule by mouth once daily at mealtimeMagnesium 300 MG capsule Take 1 capsule by mouth Daily With a meal Pnrdpy82 hr metoprolol succinate 25 mg extended release oral tablet (6 sources)beta-Adrenergic Blockertake 1 tablet by mouth once dailymetoprolol succinate XL (Toprol-XL) 25 MG 24 hr tablet Take 1 tablet by mouth Daily Do not crush orchew. ActiveMisc. Devices (Commode) misc (5 sources)Misc. Devices (Commode) mis Commode toilet lift chair ActiveMisc. Devices (Wheelchair) misc (5 sources)Misc. Devices (Wheelchair) misc Activeomeprazole 20 mg delayed release oral capsule (1 source)Proton Pump InhibitorStart: 11-03-1360bkxk 20 mg by mouth once daily in the morningOmeprazole Active 20 MG PO Every morning February 22, 2017 12:00ampotassium 99 mg extended release oral tablet (5 sources)take 1 tablet by mouth once dailyPotassium 99 MG tablet Take 1 tablet by mouth Daily Activepotassium chloride 20 meq extended release oral tablet (1 source)take 1 tablet by mouth every twenty-four hoursPotassium Chloride ER 20 MEQ 1 tablet with food Orally Once a day ActiveSuper Calcium 600 + D 400 600-400 MG-UNIT (1 source)take 400-600 tablets by mouth twice dailySuper Calcium 600 + D 400 600-400 MG-UNIT TAKE ONE TABLET BY MOUTH TWICE A DAY Oral for 90 Days Active UNABLE TO FIND (10 sources)UNABLE TO FIND Indications: Multiple Sclerosis Med Name: Handicap placard ActiveUNABLE TO FIND Med Name: Hospital bed ActivevalACYclovir 500 mg oral tablet (1 source)Herpesvirus Nucleoside Analog DNA Polymerase Inhibitor, Herpes Simplex Virus Nucleoside Analog DNA Polymerase Inhibitor, Herpes Zoster Virus Nucleoside Analog DNA Polymerase InhibitorStart: 57-96-3482lfeu 500 mg by mouth once daily in the morningValacyclovir Active 500 MG PO Every morning February 22, 2017 12:00amVitamin C 500 MG (1 source)take 1 tablet by mouth once dailyVitamin C 500 MG 1 tablet Orally Once a day ActiveVitamin D3 25 MCG (1000 UT) (1 source)take 1 tablet by mouth once dailyVitamin D3 25 MCG (1000 UT) TAKE ONE TABLET BY MOUTH ONCE DAILY Oral for 90 Days Active Problems Active Problems Problem ClassificationProblemDateDocumented DateEpisodic/ChronicMultiple sclerosis (13 sources)Multiple sclerosis; Translations: [Multiple sclerosis]Onset: 03-19-2008 Resolved: 29-67-7470FmxwbchNyqgcjjbikz deficiencies (6 sources)Vitamin D deficiency; Translations: [Vitamin D deficiency, unspecified]Onset: 796299-68-2297DuaczhzTxsvi nervous system disorders (5 sources)Neuropathy; Translations: [Polyneuropathy, unspecified]Onset: 383018-27-6914QuweldeMezxscaqj (15 sources)Spastic hemiplegia of dominant side; Translations: [Spastic hemiplegia affecting unspecified side]Onset: hronic Spondylosis; intervertebral disc disorders; other back problems (2 sources)Cervical spondylosis without myelopathy; Translations: [Spondylosis without myelopathy or radiculopathy, cervical region]Onset: 11-05-2021 Resolved: 05-04-2008TgvqtjnQcbdrmhrobme (1 source)Other malaise; Translations: [Other malaise]Onset: 12-08-2022 Past or Other Problems Problem ClassificationProblemDateDocumented DateEpisodic/ChronicBlindness and vision defects (5 sources)Subjective visual disturbance; Translations: [Unspecified subjective visual disturbances]Onset: [id number]ysmd and fatigue (5 sources)Asthenia; Translations: [Other malaise]Onset: EpisodicOther connective tissue disease (5 sources)Muscle weakness; Translations: [Muscle weakness (generalized)]Onset: 377639-26-8835JwzundqkYnuet connective tissue disease (5 sources)Spasticity; Translations: [Cramp and spasm]Onset: 06-02-2019 29-49-2316OcbisiziNecdl connective tissue disease (5 sources)Spasm; Translations: [Other muscle spasm]Onset: EpisodicOther nervous system disorders (5 sources)Abnormal gait; Translations: [Unspecified abnormalities of gait and mobility]Onset: 431268-12-5647MlkvmntqZhjlu nervous system disorders (5 sources)Numbness and tingling sensation of skin; Translations: [Anesthesia of skin]Onset: 320192-84-3224FfiymldxAmspi screening for suspected conditions (not mental disorders or infectious disease) (5 sources)Hematopoietic system finding; Translations: [Abnormal finding of blood chemistry, unspecified]Onset: 786967-08-5936MugcdbxyJlocfhjg codes; unclassified (5 sources)Insomnia; Translations: [Insomnia, unspecified]Onset: 06-02-2019 36-17-5130ButguwenGyjrjqomvzu; intervertebral disc disorders; other back problems (5 sources)Backache; Translations: [Dorsalgia, unspecified]Onset: 03-19-2008 09-76-1721Zqmmgyxa Results Test NameValueInterpretationReference RangeFacilityAmbulatory Visit Summaryon [id number] Visit SummaryAmbulatory Visit Summary TERESITA BAKER :1960 Visit Date:03/21/2025 Ambulatory Visit Instructions Your Care Team Attending Physician - Nataly Kowalski Primary Care Physician - Nataly Kowalski This Is Your Medications List alendronate (alendronate 70 mg Tab) atropine-diphenoxylate (Lomotil 0.025 mg-2.5 mg Tab) bacitracin/neomycin/polymyxin B/pramoxine top (Triple Antibiotic Plus topical ointment) cholecalciferol (Vitamin D3 2000 intl units oral Tab) cholecalciferol (cholecalciferol 2000 intl units oral capsule) levothyroxine (levothyroxine 75 mcg (0.075 mg) Tab) metoprolol (metoprolol succinate 25 mg ER Tab) Procedures Performed Urodynamics (02/22/2018), Cystoscopy. Discharge Vitals Temperature (Temporal Artery) 36.2 ???C Heart Rate (Peripheral) 72 Respiratory Rate 18 Blood Pressure 124/78 Height 65 in Height 165.0 cm What to do next Scheduled Follow-Up Appointments 2025 1:20 PM EST With: Nataly Kowalski Where: [address] [address]- Medications What How Much When Instructions New bacitracin/ neomycin/ polymyxin B/ pramoxine top (Triple Antibiotic Plus topical ointment) 1 Application Topical 2 times a day Refills: 3 Pickup at [facility] New metoprolol (metoprolol succinate 25 mg ER Tab) 1 Tablets By Mouth Every day Duration: 90 Days Refills: 3 Pickup at [facility] Changed cholecalciferol (cholecalciferol 2000 intl units oral capsule) 1 Capsules By Mouth Every day Changed cholecalciferol (Vitamin D3 2000 intl units oral Tab) 50 Microgram By Mouth Every day Pickup at [facility] Unchanged alendronate (alendronate 70 mg Tab) See instructions TAKE ONE TABLET BY MOUTH ONCE WEEKLY Unchanged atropine-diphenoxylate (Lomotil 0.025 mg-2.5 mg Tab) 1 Tablets By Mouth 2 times a day as needed for Diarrhea prn constipation Unchanged levothyroxine (levothyroxine 75 mcg (0.075 mg) Tab) 1 Tablets By Mouth Every day Pharmacy Information [facility]: [address], [place] [id number] [phone] Allergies No Known Medication Allergies Problems Ongoing - Any problem that you are currently receiving treatment for. Candidiasis of skin and nail Fecal incontinence H/O urethral stricture Herpes zoster History of recurrent UTIs HTN (hypertension) Hypothyroid Lymphedema Multiple sclerosis Neurogenic bladder Nonsmoker Osteoporosis Pressure injury, stage 1 Sleep disorder Urge incontinence Vitamin D deficiency Wheelchair dependent Patient Survey You may receive a survey via text or e-mail asking about your office visit. Please share your experience with us by completing your survey. We appreciate your feedback and thank you for choosing us for your care. Patient Portal You may access all of your results and other medical record information on our secure patient portal. If you are not signed up for this yet, please contact [employer] at [phone] to get signed up today. Language Information Language assistance services are available as needed. [facility] Medicine Office/Clinic Noteon [id number] Medicine Office/Clinic NoteBer[facility]inic Note HPI Staff Pt is here for 3 month f/u referral was put in for Neurology for her MS ... Has a appt on April 13 refills needed for Metoprolol and Bacitracin, Vitamin D History of Present Illness pt presents today for 3 month med check, has infected open sore on right lower chahal Review of Systems PHQ Score Initial Depression Screen Score: 2 SCORE Physical Exam Vitals & Measurements T: 36.2 ???C(Temporal Artery) HR: 72(Peripheral) RR: 18 BP: 124/78 SpO2: 97% HT: 165.0 cm HT: 65 in General: alert, no acute distress ENMT: oral mucosa moist, no pharyngeal erythema or exudate Cardiovascular: regular rate and rhythm, normal peripheral perfusion Respiratory: Lungs CTA, respirations non labored Extremities: no deformity, no trauma Neurological: oriented x 4, LOC appropriate for age, CN II-XII intact, motor strength equal & normal bilaterally, speech normal Assessment/Plan 1. Cellulitis (L03.90: Cellulitis, unspecified) pt presents today c/o open sore on right chahal. she bumped it on her toilet when transferring to wheelchair. then she was outside and she said sweat bees were on it. i will send in keflex pt encouraged to keep would clean and dry. and call office if it gets any worse. Ordered: cephalexin, 500 mg = 1 cap(s), Oral, QID, X 10 day(s), # 40 cap(s), Refills(s) 0, Pharmacy: [facility], 165, cm, 03/21/25 10:39:00 EDT, Height/Length Dosing 2. Chronic diarrhea (K52.9: Noninfective gastroenteritis and colitis, unspecified) pt does not need refill on Lomotil at this time. med agreement updated. RTC 3 months 3. Unable to bear weight (R26.89: Other abnormalities of gait and mobility) unable to get weight due to she is non weight bearing and in motorized wheelchair Orders: bacitracin/neomycin/polymyxin B/pramoxine top, 1 yang, Topical, BID, 30 gram, Refill(s) 1, [facility], 165.1, cm, 04/17/24 10:25:00 EST, Height/Length Dosing bacitracin/neomycin/polymyxin B/pramoxine top, 1 yang, Topical, BID, 30 gram, Refill(s) 3, [facility], 165, cm, 03/21/25 10:39:00 EDT, Height/Length Dosing cholecalciferol, 50 mcg, Oral, Daily, # 90 tab(s), Refills(s) 3, Pharmacy: [facility], 165, cm, 03/21/25 10:39:00 EDT, Height/Length Dosing metoprolol, 25 mg = 1 tab(s), Oral, Daily, X 90 day(s), # 90 tab(s), Refills(s) 3, Pharmacy: [facility], 165, cm, 03/21/25 10:39:00 EDT, Height/Length Dosing metoprolol, 25 mg = 1 tab(s), Oral, Daily, # 90 tab(s), Refills(s) 0, [facility]acy[facility], 165, cm, 12/18/24 10:54:00 EDT, Height/Length Dosing Misc Prescription, hydrocolloid dressing for pressure ulcer, See Instructions, 30 EA, 1, change dressing daily, [facility], Supply, 165, cm, 12/18/24 10:54:00 EDT, Height/Length Dosing Follow-up No qualifying data available Problem List/Past Medical History Ongoing Candidiasis of skin and nail Cellulitis Chronic diarrhea Fecal incontinence H/O urethral stricture Herpes zoster History of recurrent UTIs HTN (hypertension) Hypothyroid Lymphedema Multiple sclerosis Neurogenic bladder Nonsmoker Osteoporosis Pressure injury, stage 1 Sleep disorder Unable to bear weight Urge incontinence Vitamin D deficiency Wheelchair dependent Historical No qualifying data Procedure/Surgical History Urodynamics (02/22/2018), Cystoscopy. Medications alendronate 70 mg Tab, See Instructions, 1 refills cholecalciferol 2000 intl units oral capsule, 50 mcg= 1 cap(s), Oral, Daily, 3 refills Keflex 500 mg Cap, 500 mg= 1 cap(s), Oral, QID levothyroxine 75 mcg (0.075 mg) Tab, 75 mcg= 1 tab(s), Oral, Daily Lomotil 0.025 mg-2.5 mg Tab, 1 tab(s), Oral, BID, PRN, 3 refills metoprolol succinate 25 mg ER Tab, 25 mg= 1 tab(s), Oral, Daily, 3 refills Triple Antibiotic Plus topical ointment, 1 yang, Topical, BID, 3 refills Vitamin D3 2000 intl units oral Tab, 50 mcg, Oral, Daily, 3 refills Allergies No Known Medication Allergies Social History Alcohol Never., 09/26/2024 Substance Abuse Never., 09/26/2024 Tobacco Former smoker, quit more than 30 days ago Tobacco Use:. Never Smokeless Tobacco Use:., 03/21/2025 Family History Heart disease: Father. Hypertension: Mother. Stroke: Father. Immunizations Vaccine Date Status Comments diphtheria/pertussis, acel/tetanus adult 10/17/2024 Recorded SARS-CoV-2 mRNA (tozinameran 5y-11y) vac - Not Given [facility]Result Comment: Electronically Signed By: Nataly Kowalski\.br\Date and Time Signed: 03/21/25 11:06 EDT Ambulatory Visit Summaryon [id number] Visit SummaryAmbulatory Visit Summary TERESITA BAKER :1960 Visit Date:12/18/2024 Ambulatory Visit Instructions Your Diagnosis Multiple sclerosis Non-smoker Your Care Team Attending Physician - Nataly Kowalski Primary Care Physician - Erasto Fay MD This Is Your Medications List alendronate (alendronate 70 mg Tab) atropine-diphenoxylate (Lomotil 0.025 mg-2.5 mg Tab) bacitracin/neomycin/polymyxin B/pramoxine top (Triple Antibiotic Plus topical ointment) cholecalciferol (cholecalciferol 2000 intl units oral capsule) levothyroxine (Synthroid 75 mcg Tab) metoprolol (metoprolol succinate 25 mg ER Tab) Procedures Performed Urodynamics (02/22/2018), Cystoscopy. Discharge Vitals Temperature (Temporal Artery) 36.1 ???C Heart Rate (Peripheral) 60 Respiratory Rate 78 Blood Pressure 110/68 Height 165.0 cm Height 65 in What to do next Scheduled Follow-Up Appointments Wednesday 10:40 AM EDT With: Nataly Kowalski Where: [address] [address]- Medications What How Much When Instructions Unchanged alendronate (alendronate 70 mg Tab) See instructions TAKE ONE TABLET BY MOUTH ONCE WEEKLY Unchanged atropine-diphenoxylate (Lomotil 0.025 mg-2.5 mg Tab) 1 Tablets By Mouth 2 times a day as needed for Diarrhea prn constipation Unchanged bacitracin/ neomycin/ polymyxin B/ pramoxine top (Triple Antibiotic Plus topical ointment) 1 Application Topical 2 times a day Unchanged cholecalciferol (cholecalciferol 2000 intl units oral capsule) 1 Capsules By Mouth Every day Unchanged levothyroxine (Synthroid 75 mcg Tab) 75 Microgram By Mouth Every day Unchanged metoprolol (metoprolol succinate 25 mg ER Tab) 1 Tablets By Mouth Every day Allergies No Known Medication Allergies Problems Ongoing - Any problem that you are currently receiving treatment for. Candidiasis of skin and nail Fecal incontinence H/O urethral stricture Herpes zoster History of recurrent UTIs HTN (hypertension) Hypothyroid Lymphedema Multiple sclerosis Neurogenic bladder Nonsmoker Osteoporosis Pressure injury, stage 1 Sleep disorder Urge incontinence Vitamin D deficiency Wheelchair dependent Patient Survey You may receive a survey via text or e-mail asking about your office visit. Please share your experience with us by completing your survey. We appreciate your feedback and thank you for choosing us for your care. Patient Portal You may access all of your results and other medical record information on our secure patient portal. If you are not signed up for this yet, please contact [employer] at [phone] to get signed up today. Language Information Language assistance services are available as needed. [facility] Medicine Office/Clinic Noteon [id number] Medicine Office/Clinic NoteFamily Medicine Office/Clinic Note HPI Staff Teresita is a 64 year old female presenting with 3 month f/u Former [facility] patient skin lesion on buttocks (wheelchair bound with fecal inconvenience)... this comes and goes, she goes to the wound clinic... last time she was there was end of October she is using bacitracin/neomycin/polymyxin this works good for her restarted on Vitamin .. she did restart thiis She is Dr. Kelly for MS she is not happy there she wants to go back to Dr. Noel Spivey Needs refills on everything History of Present Illness PT PRESENTS TODAY FOR 3 MONTH FOLLOW UP. Needs all meds refilled Review of Systems PHQ Score Initial Depression Screen Score: 0 SCORE Physical Exam Vitals & Measurements T: 36.1 ???C(Temporal Artery) HR: 60(Peripheral) RR: 78 BP: 110/68 SpO2: 100% HT: 165.0 cm HT: 65 in General: alert, no acute distress ENMT: oral mucosa moist, no pharyngeal erythema or exudate Cardiovascular: regular rate and rhythm, normal peripheral perfusion Respiratory: Lungs CTA, respirations non labored Extremities: no deformity, no trauma Neurological: oriented x 4, LOC appropriate for age, CN II-XII intact, motor strength equal & normal bilaterally, speech normal uses motorized wheelchair Assessment/Plan 1. Multiple sclerosis (G35: Multiple sclerosis) pt presents today for 6 month follow up. needs refills on all meds. Is seen every 3 months for scheduled med Lomotil. pt has been followed by Dr. Kelly since Dr. Jun Dhaliwal left. she feels her MSis not being managed appropriately. pt is requesting referral to Dr. Jethro Dhaliwal in [place]. all questions answered. RTC 3 months. pt is in need of new motorized wheelchair the current one she is using is over 5 years old. the wheels are pretty bald. She will hold off on prescription for it for now. she will let me know when she is ready. RTC 3 months Ordered: Misc Prescription, hydrocolloid dressing for pressure ulcer, See Instructions, 30 EA, 1, change dressing daily, [facility], Supply, 165, cm, 12/18/24 10:54:00 EDT, Height/Length Dosing [facility] External Ambulatory Referral 2. Pressure injury, stage 1 (L89.91: Pressure ulcer of unspecified site, stage 1) pt was followed by wound care. pt is managing it on her own now. it is currently healed. she needs more of the bandages that have thicker padding. will attempt to send Rx to [facility]. she isn't sure if they will be covered by insurance. Ordered: Misc Prescription, hydrocolloid dressing for pressure ulcer, See Instructions, 30 EA, 1, change dressing daily, [facility], Supply, 165, cm, 12/18/24 10:54:00 EDT, Height/Length Dosing [facility] External Ambulatory Referral 3. Non-smoker (Z78.9: Other specified health status) continue not smoking Ordered: Misc Prescription, hydrocolloid dressing for pressure ulcer, See Instructions, 30 EA, 1, change dressing daily, [facility], Supply, 165, cm, 12/18/24 10:54:00 EDT, Height/Length Dosing [facility] External Ambulatory Referral Orders: alendronate, See Instructions, TAKE ONE TABLET BY MOUTH ONCE WEEKLY, # 12 EA, Refills(s) 0, Pharmacy: [facility], 165, cm, 09/26/24 13:48:00 EDT, Height/Length Dosing alendronate, See Instructions, TAKE ONE TABLET BY MOUTH ONCE WEEKLY, # 12 EA, Refills(s) 1, Pharmacy: [facility], 165, cm, 12/18/24 10:54:00 EDT, Height/Length Dosing atropine-diphenoxylate, 1 tab(s), Oral, BID Diarrhea, 60 tab(s), Refill(s) 3, prn constipation, [facility], 165, cm, 12/18/24 10:54:00 EDT, Height/Length Dosing atropine-diphenoxylate, 1 tab(s), Oral, BID Diarrhea, 60 tab(s), Refill(s) 0, prn constipation, [facility], 165, cm, 09/26/24 13:48:00 EDT, Height/Length Dosing cholecalciferol, 50 mcg = 1 cap(s), Oral, Daily, # 60 cap(s), Refills(s) 3, Pharmacy: [facility], 165, cm, 12/18/24 10:54:00 EDT, Height/Length Dosing cholecalciferol, 50 mcg = 1 cap(s), Oral, Daily, # 60 cap(s), Refills(s) 0, Pharmacy: [facility], 165, cm, 09/26/24 13:48:00 EDT, Height/Length Dosing levothyroxine, 75 mcg = 1 tab(s), Oral, Daily, # 90 tab(s), Refills(s) 0, Pharmacy: [facility], 165, cm, 12/18/24 10:54:00 EDT, Height/Length Dosing metoprolol, 25 mg = 1 tab(s), Oral, Daily, # 2 tab(s), Refills(s) 0, Pharmacy: [id number], 165.1, cm, 04/17/24 10:25:00 EST, Height/Length Dosing metoprolol, 25 mg = 1 tab(s), Oral, Daily, # 90 tab(s), Refills(s) 0, Pharmacy: [facility], 165, cm, 12/18/24 10:54:00 EDT, Height/Length Dosing Follow-up No qualifying data available Problem List/Past Medical History Ongoing Candidiasis of skin and nail Fecal incontinence H/O urethral stricture Herpes zoster History of recurrent UTIs HTN (hypertension) Hypothyroid Lymphedema Multiple sclerosis Neurogenic bladder Nonsmoker Osteoporosis Pressure injury, stage 1 Sleep disorder Urge incontinence Vitamin D deficiency Wheelchair dependent Historical (more content not included)...[facility] HospitalComment on above: Result Comment: Electronically Signed By: Nataly Kowalski\.lorenzo\Date and Time Signed: 12/18/24 13:09 EDTAmbulatory Visit Summaryon [id number] Visit SummaryAmbulatory Visit Summary TERESITA BAKER :1960 Visit Date:09/26/2024 Ambulatory Visit Instructions Your Diagnosis Blister Nonsmoker Vitamin D deficiency Multiple sclerosis Your Care Team Attending Physician - Erasto Fay MD Primary Care Physician - Erasto Fay MD This Is Your Medications List alendronate (alendronate 70 mg Tab) atropine-diphenoxylate (Lomotil 0.025 mg-2.5 mg Tab) bacitracin/neomycin/polymyxin B/pramoxine top (Triple Antibiotic Plus topical ointment) levothyroxine (Synthroid 75 mcg Tab) metoprolol (metoprolol succinate 25 mg ER Tab) Procedures Performed Urodynamics (02/22/2018), Cystoscopy. Discharge Vitals Temperature (Tympanic) 36.9 ???C Heart Rate (Peripheral) 76 Respiratory Rate 18 Blood Pressure 122/78 Height 165 cm Height 65 in What to do next Scheduled Follow-Up Appointments 2024 11:00 AM EDT With: Clay DANIELS, Erasto Adam Where: [place] [phone]- Medications What How Much When Instructions Unchanged alendronate (alendronate 70 mg Tab) See instructions TAKE ONE TABLET BY MOUTH ONCE WEEKLY Unchanged atropine-diphenoxylate (Lomotil 0.025 mg-2.5 mg Tab) 1 Tablets By Mouth 2 times a day as needed for Diarrhea prn constipation Unchanged bacitracin/ neomycin/ polymyxin B/ pramoxine top (Triple Antibiotic Plus topical ointment) 1 Application Topical 2 times a day Unchanged levothyroxine (Synthroid 75 mcg Tab) 75 Microgram By Mouth Every day Unchanged metoprolol (metoprolol succinate 25 mg ER Tab) 1 Tablets By Mouth Every day Allergies No Known Medication Allergies Problems Ongoing - Any problem that you are currently receiving treatment for. Candidiasis of skin and nail Fecal incontinence H/O urethral stricture Herpes zoster History of recurrent UTIs HTN (hypertension) Hypothyroid Lymphedema Multiple sclerosis Neurogenic bladder Nonsmoker Osteoporosis Pressure injury, stage 1 Sleep disorder Urge incontinence Vitamin D deficiency Wheelchair dependent Patient Survey You may receive a survey via text or e-mail asking about your office visit. Please share your experience with us by completing your survey. We appreciate your feedback and thank you for choosing us for your care. [facility] Medicine Office/Clinic Noteon [id number] Medicine Office/Clinic NoteFaboston city hospital Medicine Office/Clinic Note Chief Complaint 1m follow up Patient presents with a worsening and painful blister suspected to be a pressure ulcer. HPI Staff 1m follow up to skin lesion on buttocks. (Pt is wheelchair bound with fecal incontinence.) Wellness labs completed 08/29/24. WNL Would like to go back on Vit D supplement. Has noticed longevity of sores & decrease in energy since Vit D was dc'd. Blister & scab had subsided. Started feeling it again on Wednesday. Did feel another sore. Utilized ointment. Sore developed on both sides. Did end up popping yesterday. Does have picture on her phone of blisters. History of Present Illness The patient is a 64-year-old female presenting with a worsening blister. The blister, which startedwith minimal symptoms, has progressively worsened, causing concern for pressure ulcer development over a short duration. Originally superficial, the lesion involved subsequent skin peeling and bleeding, raising mobility-related challenges due to her multiple sclerosis. The patient describes reliance on external assistance, and progress from dryness to a clear discharge and pain upon touching the area, suggests deterioration likely due to pressure- related factors. Review of Systems PHQ Score Initial Depression Screen Score: 0 SCORE Physical Exam Vitals & Measurements T: 36.9 ???C(Tympanic) HR: 76(Peripheral) RR: 18 BP: 122/78 SpO2: 99% HT: 65 in HT: 165 cm General: alert, no acute distress ENMT: oral mucosa moist Cardiovascular: Regular rate and rhythm, normal peripheral perfusion Respiratory: Lungs clear to auscultation, respirations non labored Extremities: no deformity, no trauma Neurological: oriented x 4, level of consciousness appropriate for age, CN II- XII intact, motor strength equal & normal bilaterally, speech normal Picture seen looking at a stage 2 pressure ulcer. Images are not the best. Assessment/Plan 1. Blister (T14.8XXA: Other injury of unspecified body region, initial encounter) The patient's blister has worsened, and wound care is essential to prevent further deterioration. Regular cleaning, monitoring, and wound management strategies need implementation. Home healthcare services through Medicaid or other available support systems are to be considered.The worsening blister with ulceration necessitates coordinated wound care management. Pressure relief techniques and assist with daily activities are paramount in the management plan. Exploring care in assisted living facilities was discussed for further ulcer prevention. Ordered: Body Mass Index (BMI) documented 3008F Current tobacco non-user 1036F Depression Screening Negative 3352F Discharge medications reconciled with current medications in outpatient record 1111F [facility] External Ambulatory Referral Influenza immunization status assessed 1030F Medication list documented in medical record 1159F Most recent diastolic blood pressure <80 mm Hg 3078F Patient screen for fall risk: no falls in last year or 1 fall with no injury in last year 1101F Review of all meds by a prescribing practitioner or clinical pharmacist documented in EHR 1160F Systolic BP <130 mm Hg (Most Recent) 3074F 2. Nonsmoker (Z78.9: Other specified health status) Please continue no smoke Ordered: [facility] External Ambulatory Referral 3. Vitamin D deficiency (E55.9: Vitamin D deficiency, unspecified) Will restart on vitamin D Ordered: [facility] External Ambulatory Referral 4. Multiple sclerosis (G35: Multiple sclerosis) The management of the patient???s multiple sclerosis should entail coordination with neurologists and regular assessments to minimize MS-related complications. Mobility assistance should be supportedto prevent further pressure-induced lesions due to the patient???s condition affecting skin integrity. Ordered: [facility] External Ambulatory Referral 64-year-old female with a history of multiple sclerosis presenting with a worsening blister suspected to be a pressure ulcer. The patient's lesion has progressed from a superficial blister to a more concerning ulcerative process, demonstrating skin breakdown and fluid discharge. Mobility issues related to multiple sclerosis may contribute to increased risk factors for pressure-related skin injuries and hinder current care. We discussed with the patient the need for ongoing wound care and preventative measures for the pressure ulcer, including cleaning, monitoring, and use of pressure-relieving strategies. The differences between home health care services via Medicaid and potential benefits of assisted living were reviewed, emphasizing the adaptation of care based on the patient's mobility limitations. Recommendations were made for focusing on avoiding further deterioration through diligent home care practices andoptimizing skin care strategies based on current needs. Follow-up No qualifying data available Problem List/Past Medical History Ongoing Candidiasis of skin an (more content not included)...[facility] HospitalComment on above:Result Comment: Electronically Signed By: Clay DANIELS, Erasto Turcios.br\Date and Time Signed: 09/26/24 14:37 EDTAmbulatory Visit Summaryon [id number] Visit SummaryAmbulatory Visit Summary TERESITA BAKER :1960 Visit Date:08/29/2024 Ambulatory Visit Instructions Your Diagnosis Multiple sclerosis Nonsmoker Wheelchair dependent Fecal incontinence Your Care Team Attending Physician - Erasto Fay MD Primary Care Physician - Erasto Fay MD This Is Your Medications List alendronate (alendronate 70 mg Tab) atropine-diphenoxylate (Lomotil 0.025 mg-2.5 mg Tab) bacitracin/neomycin/polymyxin B/pramoxine top (Triple Antibiotic Plus topical ointment) levothyroxine (Synthroid 75 mcg Tab) metoprolol (metoprolol succinate 25 mg ER Tab) Procedures Performed Urodynamics (02/22/2018), Cystoscopy. Discharge Vitals Temperature (Tympanic) 36.9 ???C Heart Rate (Peripheral) 78 Respiratory Rate 18 Blood Pressure 132/80 Height 165 cm Height 65 in What to do next Scheduled Follow-Up Appointments 2024 11:00 AM EDT With: Erasto Fay MD Where: [place] [phone]- Medications What How Much When Instructions Unchanged alendronate (alendronate 70 mg Tab) See instructions TAKE ONE TABLET BY MOUTH ONCE WEEKLY Unchanged atropine-diphenoxylate (Lomotil 0.025 mg-2.5 mg Tab) 1 Tablets By Mouth 2 times a day as needed for Diarrhea prn constipation Unchanged bacitracin/ neomycin/ polymyxin B/ pramoxine top (Triple Antibiotic Plus topical ointment) 1 Application Topical 2 times a day Unchanged levothyroxine (Synthroid 75 mcg Tab) 75 Microgram By Mouth Every day Unchanged metoprolol (metoprolol succinate 25 mg ER Tab) 1 Tablets By Mouth Every day Allergies No Known Medication Allergies Problems Ongoing - Any problem that you are currently receiving treatment for. Candidiasis of skin and nail Fecal incontinence H/O urethral stricture Herpes zoster History of recurrent UTIs HTN (hypertension) Hypothyroid Lymphedema Multiple sclerosis Neurogenic bladder Nonsmoker Osteoporosis Pressure injury, stage 1 Sleep disorder Urge incontinence Vitamin D deficiency Wheelchair dependent Patient Survey You may receive a survey via text or e-mail asking about your office visit. Please share your experience with us by completing your survey. We appreciate your feedback and thank you for choosing us for your care. NormalMagruder HospitalCBC w/ Auto Diffon 08-29-2024 Basophils/100 WBC (Bld)2.8 %High0.0-2.0Magruder HospitalComment on above:Performed By: #### [id number] #### [facility] [address] [place] [address] 78031Gjnvslocy/Leukocytes Auto (Bld) [Pure # fraction]0.2 E9/LNormal 0.0-0.2FWestern Reserve HospitalComment on above:Performed By: #### [id number] #### [facility] [address] [place] [address] 04015Jmrdwicvzwa (Bld) [#/Vol]0.1 E9/LNormal0.0-0.5FWestern Reserve HospitalComment on above:Performed By: #### [id number] #### [facility] [address] [place] [address] 49019Wzxdazlfzfr/100 WBC (Bld)1.8 %Normal0.0-8.0Magruder HospitalComment on above:Performed By: #### [id number] #### [facility] [address] [place] [address] 36847Avnrdjxrvuf distribution width (RBC) [Ratio]14.3 %High10.9-14.2 [facility] HospitalComment on above:Performed By: #### [id number] #### [facility] [address] [place] [address] 14022Pyunklzeru (Bld) [Volume fraction]41.0 %Ngcfbv39.0-46.0Mag[facility]uder HospitalComment on above:Performed By: #### [id number] #### [facility] [address] [place] [address] 01242Benlmlraum (Bld) [Mass/Vol]14.0 g/tSWdotog56.0-16.0[facility] HospitalComment on above:Performed By: #### [id number] #### [facility] [address] [place] [address] 57077Bvllbfcqrak (Bld) [#/Vol]1.4 E9/LNormal1.0-4.0[facility] HospitalComment on above:Performed By: #### [id number] #### [facility] [address] [place] [address] 09410Zfxmhblpnha/100 WBC (Bld)22.4 %Rburuu94.0-50.0[facility] HospitalComment on above:Performed By: #### [id number] #### [facility] [address] [place] [address] 51719ENW (RBC) [Entitic mass]29.6 evWbrkvf80.0-34.0[facility] HospitalComment on above:Performed By: #### [id number] #### [facility] [address] [place] [address] 39032QDNJ (RBC) [Mass/Vol]34.0 g/lHAcmkzx19.4-36.0[facility] HospitalComment on above:Performed By: #### [id number] #### [facility] [address] [place] [address] 83035LIK (RBC) [Entitic vol]87.1 dAKlponx48.0-100.0Mag[facility] HospitalComment on above:Performed By: #### [id number] #### [facility] [address] [place] [address] 72094Pppcbymhg (Bld) [#/Vol]0.4 E9/LNormal0.2-1.0Mag[facility] HospitalComment on above:Performed By: #### [id number] #### [facility] [address] [place] [address] 07950Vwcutxtlyqy (Bld) [#/Vol]4.3 E9/LNormal2.0-7.5FWestern Reserve HospitalComment on above:Performed By: #### [id number] #### [facility] [address] [place] [address] 12861Necyswsmwpt/100 WBC (Bld)67.3 %Dpvnpf66.0-75.0Mag[facility] HospitalComment on above:Performed By: #### [id number] #### [facility] [address] [place] [address] 65079Obalatwg mean volume (Bld) [Entitic vol]7.4 fLNormal6.4-10.8 [facility] HospitalComment on above:Performed By: #### [id number] #### [facility] [address] [place] [address] 41357Nfsevnqwi (Bld) [#/Vol]256.0 E9/JCijook088.0-500.0Mag[facility]uder HospitalComment on above:Performed By: #### [id number] #### [facility] [address] [place] [address] 78370TQQ (Bld) [#/Vol]4.7 E12/LNormal4.3-5.9Mag[facility] HospitalComment on above:Performed By: #### [id number] #### [facility] [address] [place] [address] 54153OZR corrected for nucl RBC Auto (Bld) [#/Vol]6.5 E9/LNormal 4.0-11.0[facility]uder HospitalComment on above:Performed By: #### [id number] #### [facility] [address] [place] [address] 27221XIOzs 76-70-1546Njybfsp [Mass/Vol]4.0 g/dLNormal3.3-5.0Mag[facility]uder HospitalComment on above:Performed By: #### [id number] #### [facility] [address] [place] [address] 24668Ixblgit/Globulin (S) [Mass conc ratio]1.0Vfnwse5.1-2.2FWestern Reserve HospitalComment on above:Performed By: #### [id number] #### [facility] [address] [place] [address] 96154PWC [Catalytic activity/Vol]85 Int._Unit/MEfwljo65-83YcxsegMagruder HospitalComment on above:Performed By: #### [id number] #### [facility] [address], [place] [address]JKW No additional P-5'-P [Catalytic activity/Vol]12 Int._Unit/L Normal6-46Mag[facility]uder HospitalComment on above:Performed By: #### [id number] #### [facility] [address], [place] [address]Zktlz gap [Moles/Vol]11 mmol/LNormal6-16Mag[facility]uder HospitalComment on above:Performed By: #### [id number] #### [facility] [address] [place] [address] 52697QXH [Catalytic activity/Vol]18 Int._Unit/LNormal5-43Mag[facility]uder HospitalComment on above:Performed By: #### [id number] #### [facility] [address] [place] [address] 20542Uvstwzygn [Mass/Vol]0.7 mg/dLNormal0.0-1.1FWestern Reserve HospitalComment on above:Performed By: #### [id number] #### [facility] [address] [place] [address] 08022Xpqqhsx [Mass/Vol]9.2 mg/dLNormal8.9-11.1FWestern Reserve HospitalComment on above:Performed By: #### [id number] #### [facility] [address] [place] [address] 25288Oiltvoyr [Moles/Vol]108 mmol/MRfdpin934-594NozsmvMagruder HospitalComment on above:Performed By: #### [id number] #### [facility] [address] [place] [address] 56537LZ0 [Moles/Vol]26 mmol/WLzuqrp89-65NxqytwMagruder Hospital Comment on above:Performed By: #### [id number] #### [facility] [address] [place] [address] 53969Pmugxadquj [Mass/Vol]0.6 mg/dLNormal0.5-1.3FWestern Reserve HospitalComment on above:Performed By: #### [id number] #### [facility] [address], [place] [address]Etyerhtj (S) [Mass/Vol]2.9 g/dLNormal1.4-4.0Mag[facility]uder HospitalComment on above:Performed By: #### [id number] #### [facility] [address], [place] [address]Ayamnib [Mass/Vol]87 mg/rYLtdaeq00-083XnontzMagruder HospitalComment on above:Performed By: #### [id number] #### [facility] [address] [place] [address] 24111Ebfjkuqbx [Moles/Vol]3.8 mmol/LNormal3.5-5.3FWestern Reserve HospitalComment on above:Performed By: #### [id number] #### [facility] [address], [place] [address]Dhksfly [Mass/Vol]6.9 g/dLNormal6.0-7.8Magruder HospitalComment on above:Performed By: #### [id number] #### [facility] [address], [place] [address]Qcswtf [Moles/Vol]141 mmol/HSoasqy708-999JqqikpMagruder HospitalComment on above:Performed By: #### [id number] #### [facility] [address], [place] [address]Hcdl nitrogen [Mass/Vol]14 mg/dLNormal5-21Magruder HospitalComment on above:Performed By: #### [id number] #### [facility] [address], [place] [address]Swsp nitrogen/Creatinine [Mass ratio]23 No DpskfMcnt51-95HhlzooMagruder HospitalComment on above:Performed By: #### [id number] #### [facility] [address], [place] [address]Lsnoxw Medicine Office/Clinic Noteon [id number] Medicine Office/Clinic NoteFaboston city hospital Medicine Office/Clinic Note Chief Complaint Chronic Care Follow up Persistent skin lesions and discomfort associated with current immobility HPI Staff Chronic Care follow up Patient is here for follow up on hypertension. How often are you checking your blood pressure? _yes What are your average readings? _120/80 Yearly BMP: _10/19/23 Would like 90 day refills on Lomotil going forward. Has been using ointment for bed sores. (given at last encounter). States there is now a blister on her bottom. Painful at times. Popped open yesterday. Still causing pain. Clear drainage. Concerned with it getting infected with BMs and being incontinent. Blister has started to come back. Would liketo discuss if its going to be reoccurring. And if cream is still ok to use or if she needs refill. History of Present Illness The patient is a 64-year-old female presenting with worsening skin lesions and discomfort related to immobility. She has a history of multiple sclerosis and is currently wheelchair-dependent. The patient reports persistent skin lesions on her tailbone, initially manifested as blisters, with recent development of a hard blister that subsequently burst without discharge of blood or pus. This area remains sore, despite her use of topical creams. The patient's immobility, as a result of wheelchair dependence, may aggravate these lesions. The patient attempted to use an alternative wheelchair provided by a relative, but continues to find the seating inadequate. Additionally, she expressed concerns regarding potential shingles recurrence, though no new symptoms were observed. She indicated a history of receiving a shingles vaccine, and inquires about further preventive measures. The patient also noted a recent experience with flu-like symptoms, emphasizing susceptibility to infections given her immunocompromised condition. - Discussed shingles vaccination and potential risks/benefits with patient. Review of Systems PHQ Score Initial Depression Screen Score: 0 SCORE Physical Exam Vitals & Measurements T: 36.9 ???C(Tympanic) HR: 78(Peripheral) RR: 18 BP: 132/80 SpO2: 97% HT: 65 in HT: 165 cm General: alert, no acute distress ENMT: oral mucosa moist Cardiovascular: Regular rate and rhythm, normal peripheral perfusion Respiratory: Lungs clear to auscultation, respirations non labored Extremities: no deformity, no trauma Neurological: oriented x 4, level of consciousness appropriate for age, CN II- XII intact, motor strength equal & normal bilaterally, speech normal Abdomen: Soft, Non-tender, Non-distended, + Bowel sounds Assessment/Plan 1. Multiple sclerosis (G35: Multiple sclerosis) Review current seating arrangement and ensure proper adaptive equipment to prevent exacerbation of skin sores. Schedule regular neurological evaluations. Ordered: CBC w/ Auto Diff Comprehensive Metabolic Panel TSH With T4fr Reflex 2. Nonsmoker (Z78.9: Other specified health status) Please continue to not smoke. Ordered: CBC w/ Auto Diff Comprehensive Metabolic Panel TSH With T4fr Reflex 3. Wheelchair dependent (Z99.3: Dependence on wheelchair) Stable. Ordered: CBC w/ Auto Diff Comprehensive Metabolic Panel TSH With T4fr Reflex 4. Fecal incontinence (R15.9: Full incontinence of feces) Continues to be incontinent. Please keep the area clean. Abx for the skin lesion. Was unable to seeit today. Insist on the patient letting me see it if it does not get better. Ordered: CBC w/ Auto Diff Comprehensive Metabolic Panel TSH With T4fr Reflex Orders: atropine-diphenoxylate, 1 tab(s), Oral, BID Diarrhea, 6 tab(s), Refill(s) 0, prn constipation, [id number], 165.1, cm, 04/17/24 10:25:00 EST, Height/Length Dosing atropine-diphenoxylate, 1 tab(s), Oral, BID Diarrhea, 60 tab(s), Refill(s) 0, prn constipation, [facility], 165.1, cm, 04/17/24 10:25:00 EST, Height/Length Dosing 64-year-old female with a history of multiple sclerosis, presenting with worsening skin lesions anddiscomfort related to immobility. The chronic immobility due to wheelchair dependence is likely contributing to persistent lesions on the tailbone area. These have been self-managed so far but may req uire professional intervention if further deterioration is noted. The patient also inquires about potential shingles recurrence, although no active symptoms were noted, sparking discussion of preventive measures such as vaccination. Skin Lesions Ongoing monitoring for infection is recommended, with continued use of triple antibiotic ointment. Referral to wound care is considered if lesions do not improve. Shingles Consideration Discuss shingles vaccination with patient and ensure coverage with insurance. Encourage seeking vaccination at local pharmacies. I discussed with the patient the necessity of continued monitoring and management of her skin lesions to avoid further complications, given her wheelchair dependency. Emphasized the req (more contentnot included)...Normal [facility] HospitalComment on above:Result Comment: Electronically Signed By: Clay DANIELS, Erasto Macias\Date and Time Signed: 08/29/24 14:25 EDTTSH With T4fr Reflexon [id number] Qn1.30 m[IU]/LNormal0.34-5.60Mag[facility]uder HospitalComment on above:Performed By: #### [id number] #### [facility] [address], [place] [address]tGQGbo [id number] mL/min/1.73 y1Bmkhwd>=59Magruder HospitalComment on above:Performed By: #### [id number] #### [facility] [address], [place] [address]Wgenso Medicine Office/Clinic Noteon 25-69-5986Dhqvxn Medicine Office/Clinic NoteFaboston city hospital Medicine Office/Clinic Note Chief Complaint The patient presents for evaluation and management of multiple sclerosis-related symptoms. HPI Staff Teresita is a 63 year old female presenting for 3 month follow up MS, HTN Patient is here for follow up on hypertension. How often are you checking your blood pressure? Doesnt check BP at home What are your average readings? N/A, Not checking at home Yearly BMP: 10/19/23 _ questions/concerns: [facility] and they'll deliver to her Has a sore on buttocks that hurts, needs addresse, using antb ointment History of Present Illness The patient is a 64-year-old female presenting with a history of multiple sclerosis. She reports experiencing various phases with this condition over several years. Recently, she has noted improvement in certain urinary symptoms, which were previously characterized by involuntary urges triggered byverbal cues related to voiding. Her current status with multiple sclerosis includes stable bowel and bladder functions without accidental episodes. There is a subjective report of intermittent seizures occurring in the morning. The patient associates her condition with significant familial patterns, as a brother and several cousins also suffer from varying severity levels of multiple sclerosis. Through self-management, she attempts ongoing symptom control while expressing concern about potential cognitive changes such as memory difficulties. Additionally, a history of osteoporosis of the backis mentioned, previously identified and managed by Dr. Christensen. The patient's medication history reveals intolerance to muscle relaxants, which exacerbate weakness. Her medical history is further complicated by a family history of thyroid disease, specifically relating to her mother's demise. Review of Systems PHQ Score Initial Depression Screen Score: 2 SCORE - Neurological: Reports intermittent muscle weakness, occasional seizures, and memory difficulties. - Musculoskeletal: Denies recent trauma or further osteoporotic changes since last assessment. - Genitourinary: Denies current incontinence or accidents; reports historical symptoms now resolved. - Gastrointestinal: Denies recent bowel disturbances. Physical Exam Vitals & Measurements T: 36.1 ???C(Temporal Artery) HR: 64(Peripheral) RR: 18 BP: 122/84 SpO2: 99% HT: 65 in HT: 165.1 cm General: alert, no acute distress ENMT: oral mucosa moist Cardiovascular: Regular rate and rhythm, normal peripheral perfusion Respiratory: Lungs clear to auscultation, respirations non labored Extremities: no deformity, no trauma, legs swollen but not as big Neurological: oriented x 4, level of consciousness appropriate for age, CN II- XII intact, flaccid paralysis of bilateral lower extremities. Decreased movements in all extremities. Stage I pressure ulcer noted at the top of both buttocks. Abdomen: Soft, Non-tender, Non-distended, + Bowel sounds Assessment/Plan 1. HTN (hypertension) (I10: Essential (primary) hypertension) Continue to monitor blood pressure and manage with current antihypertensive therapy, ensuring patient compliance and routine follow-ups for blood pressure assessment. Lifestyle modifications, including dietary changes and exercise, were discussed to support blood pressure control. Ordered: Current tobacco non-user 1036F Depression Screening Negative 3352F Lab Specimen Collect 93603 Most recent diastolic blood pressure 80-89 mm Hg 3079F Systolic BP <130 mm Hg (Most Recent) 3074F TSH With T4fr Reflex 2. Multiple sclerosis (G35: Multiple sclerosis) The focus of the visit was on the patient's current state and management of multiple sclerosis. There is a family history significant for multiple sclerosis, and the patient reports improvements in certain symptoms, including urinary control. Medication interactions such as intolerance to baclofen were reviewed, avoiding those which worsen weakness. Continued regular neurological evaluations and supportive measures were deemed necessary to monitor the progression and control symptoms. Recommendations for possible medications were not included as none were discussed. Ordered: Current tobacco non-user 1036F Depression Screening Negative 3352F Lab Specimen Collect 78403 Most recent diastolic blood pressure 80-89 mm Hg 3079F Systolic BP <130 mm Hg (Most Recent) 3074F TSH With T4fr Reflex 3. Disorder of thyroid, unspecified (E07.9) Evaluate thyroid function due to positive family history of thyroid disease, particularly because of the patient's concern relating to her mother's history. Regular screening and monitoring of thyroid function tests were recommended as part of preventative health care. Ordered: Current tobacco non-user 1036F Depression Screening Negative 3352F Lab Specimen Collect 85121 Most recent diastolic blood pressure 80-89 mm Hg 3079F Systolic BP <130 mm Hg (Most Recent) 3074F TSH With T4fr Reflex 4. Age (more content not included)...NormalMagruder HospitalComment on above:Result Comment: Electronically Signed By: Clay DANIELS, Erasto Adam\.br\Date and Time Signed: 04/17/24 11:26 ESTTSH With T4fr Reflexon 50-81-8374XNF Qn0.92 m[IU]/LNormal0.34-5.60Magruder HospitalComment on above:Performed By: #### [id number] #### [facility] [address], [place] [address]Pzfnza Medicine Office/Clinic Noteon 50-57-8904Wdgztw Medicine Office/Clinic NoteFaboston city hospital Medicine Office/Clinic Note HPI Staff Teresita is a 63 year old female presenting for 3 month follow up MS, HTN Patient is here for follow up on hypertension. How often are you checking your blood pressure? randomly What are your average readings? always normal when she does check it _ Yearly BMP:10/19/23 _ questions/concerns: needs all 4 of her meds refilled phq:6 phq9: 13 History of Present Illness - Here for follow up. - No new symptoms with MS - HTN is well controlled. - Still having edema. Review of Systems PHQ Score Initial Depression Screen Score: 6 SCORE Detailed Depression Screen Score: 7 Total Depression Screen Score: 13 Physical Exam Vitals & Measurements T: 36.5 ?C(Temporal Artery) HR: 78(Peripheral) RR: 18 BP: 122/70 SpO2: 99% HT: 65 in HT: 165.1 cm General: alert, no acute distress ENMT: oral mucosa moist, Cardiovascular: regular rate and rhythm, normal peripheral perfusion Respiratory: Lungs CTA, respirations non labored Extremities: no deformity, no trauma Neurological: oriented x 4, LOC appropriate for age, CN II-XII intact,Wheelchair bound. Abdomen: Soft, Nontender, Non-distended, + BS Assessment/Plan 1. HTN (hypertension) (I10: Essential (primary) hypertension) - At goal. - Will refill meds 2. Multiple sclerosis (G35: Multiple sclerosis) - Stable. - Continue to follow with Neurology 3. Nonsmoker (Z78.9: Other specified health status) - Please continue to not smoke 4. 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 5. Vitamin D deficiency (E55.9: Vitamin D deficiency, unspecified) - Improved 6. Lymphedema (I89.0: Lymphedema, not elsewhere classified) - Stable. - No issues at this time. 7. Hypothyroid (E03.9: Hypothyroidism, unspecified) - Will recheck and adjust meds as needed. Follow-up No qualifying data available Problem List/Past [...] Tobacco Use:. Never Smokeless Tobacco Use:. Cigarettes, 01/18/2024 Family History Heart disease: Father. Hypertension: Mother. Stroke: Father. Immunizations Vaccine Date Status Comments SARS-CoV-2 mRNA (tozinameran 5y-11y) vac - Not Given Postpone due to refusal [facility] HospitalComment on above:Result Comment: Electronically Signed By: Erasto Fay MD\.br\Date and Time Signed: 03/28/24 12:54 EDT Provider Letteron [id number] LetterProvider Letter January 18, 2024 TERESITA B[address]ER [address] [place] [id number] : 1960 To Whom It May Concern, Above patient was seen in our office on 01/18/2024 at 10:15am. Comments: Please contact our office with any further questions. Sincerely, [place] [address] OgjdbjFiograChildren's Hospital of ColumbusConsultation Noteon 11-15-2023 Consultation [id number]#1.00TIFFGenesis HospitalAmbulatory Visit Summaryon 65-81-5182Urooankvvc Visit Summary TERESITA BAKER :1960 Visit Date:10/19/2023 Ambulatory Visit Instructions Your Diagnosis HTN (hypertension) Multiple sclerosis Former smoker Hypothyroid Lymphedema Wheelchair dependent Fecal incontinence Your Care Team Attending Physician - Erasto Fay MD Primary Care Physician - Erasto Fay MD This Is Your Medications List alendronate (alendronate 70 mg Tab) atropine-diphenoxylate (Lomotil 0.025 mg-2.5 mg Tab) levothyroxine (Synthroid [...] EDT With: Clay DANIELS, Erasto Adam Where: [facility] BellevueNoalMagruder HospitalCBC w/ Auto Diffon 85-57-5069Hgwdvnduu/100 WBC (Bld)0.7 %Normal 0.0-2.0Magruder HospitalComment on above:Performed By: #### 6199952, 1777442, 5730186, 11898795, 64744753 ####[facility] [address] [place], [place] [address]Lxmzszsoj/Leukocytes Auto (Bld) [Pure # fraction]0.0 E9/LNormal0.0-0.2FWestern Reserve HospitalComment on above: Performed By: #### 5658239, 1640544, 6785347, 02270824, 85646987 ####[facility] [address] [place], [place] [address]Gfpwnwsrzpg (Bld) [#/Vol]0.1 E9/LNormal0.0-0.5FWestern Reserve HospitalComment on above: Performed By: #### 1955377, 5354252, 8974116, 67531715, 31108233 ####[facility] [address] [place], [place] [address]Zwjcdyzcecm/100 WBC (Bld)2.5 %Normal0.0-8.0Magruder HospitalComment on above:Performed By: #### 1536515, 2921701, 0986998, 04671624, 13621097 ####[facility] [address] [place], [place] [address]Arbxprusfzn distribution width (RBC) [Ratio]14.6 %High10.9-14.2FWestern Reserve HospitalComment on above:Performed By: #### 7940898, 1631876, 5231417, 49786644, 77477258 ####[facility] [address] [address] Hematocrit (Bld) [Volume fraction]44.3 %Mderqr48.0-46.0Magruder HospitalComment on above:Performed By: #### 6888101, 8421064, 2553137, 71492682, 47752897 ####[facility] [address] [address]Jgcaoqghjw (Bld) [Mass/Vol]14.4 g/vAVblarn90.0-16.0Mag[facility]uder HospitalComment on above:Performed By: #### 9370890, 7027740, 4996135, 95883108, 56761460 ####[address] [address]Ubdvguexvuo (Bld) [#/Vol]1.0 E9/LNormal1.0-4.0[facility] Comment on above:Performed By: #### 7400538, 2956192, 2039785, 13706607, 07474297 ####[facility] [address] [address]Iapyvnzqwyk/100 WBC (Bld)18.4 %Ltokri22.0-50.0[facility] Comment on above:Performed By: #### 3138332, 8739005, 8449193, 02709343, 55792217 ####[facility] [address] [address]EBK (RBC) [Entitic mass]28.4 vkImkwsr53.0-34.0[facility] Comment on above:Performed By: #### 5332171, 0205917, 4597714, 06650161, 38160900 ####[facility] [address] [address]RDHX (RBC) [Mass/Vol]32.4 g/rENafzyi79.4-36.0[facility] Comment on above:Performed By: #### 3531764, 3277296, 9172897, 20542238, 15798415 ####[address] [address]EQJ (RBC) [Entitic vol]87.7 fUBozbhv18.0-100.0[facility] Comment on above:Performed By: #### 3506541, 3125974, 4237024, 21716551, 41822573 ####[address] [address]Nezhhbdua (Bld) [#/Vol]0.4 E9/LNormal0.2-1.0[facility] Comment on above:Performed By: #### 3939586, 3425990, 7333134, 57273326, 38936853 ####[address] [address]Pbtoxfiseym (Bld) [#/Vol]3.8 E9/LNormal2.0-7.5FWestern Reserve Hospital Comment on above:Performed By: #### 1301516, 9977600, 5987813, 17274658, 96085970 ####[address] [address]Vxvqrgdhuzn/100 WBC (Bld)71.4 %Klrvxr73.0-75.0[facility] Comment on above:Performed By: #### 7287645, 7912466, 6770544, 95698888, 74394510 ####[address] [address]Rgkjpumw mean volume (Bld) [Entitic vol]7.7 fLNormal6.4-10.8Mag[facility]uder HospitalComment on above:Performed By: #### 0537414, 8124730, 0742092, 28571491, 25664315 ####[address] [address]Doqzsjary (Bld) [#/Vol]277.0 E9/ZMuiqsx079.0-500.0[facility]uder HospitalComment on above:Performed By: #### 1121398, 8143660, 1016969, 11234280, 41223830 ####[facility] [address] [place], [place] [address]ZAQ (Bld) [#/Vol]5.1 E12/LNormal4.3-5.9Mag[facility]uder HospitalComment on above:Performed By: #### 3717123, 6488104, 6398819, 44616053, 01565119 ####[address] [address]FRD corrected for nucl RBC Auto (Bld) [#/Vol]5.3 E9/LNormal 4.0-11.0[facility]uder HospitalComment on above:Performed By: #### 3839952, 0433761, 3723125, 47188951, 83693626 ####[facility] [address] [place], [place] [address]XTQzu 95-49-4988Wlzhhnc [Mass/Vol]4.5 g/dLNormal3.3-5.0[facility]uder HospitalComment on above:Performed By: #### 5226324, 4357142, 2638346, 37663616, 83768344 ####[address] [address]Lvqfrhf/Globulin (S) [Mass conc ratio]1.2Xzovau1.1-2.2[facility] Grace Medical CenterComment on above:Performed By: #### 2681518, 1123377, 1639485, 50698727, 03509025 ####[address] [address]TWV [Catalytic activity/Vol]98 Int._Unit/KYbcuxk69-99CscotmMagruder HospitalComment on above:Performed By: #### 2517897, 8498668, 2542679, 11247479, 13805624 ####[facility] [address] [place], [place] [address]RXO No additional P-5'-P [Catalytic activity/Vol]17 Int._Unit/LNormal6-46[facility] Comment on above:Performed By: #### 4455277, 3170249, 6737596, 61390095, 48952156 ####[address] [place], [place] [address]Ucebg gap [Moles/Vol]12 mmol/LNormal6-16Mag[facility]uder HospitalComment on above:Performed By: #### 5414326, 8952507, 6092642, 83702068, 87698478 ####[address] [address]QLX [Catalytic activity/Vol]16 Int._Unit/LNormal5-43[facility] Comment on above:Performed By: #### 8598640, 6723171, 7105351, 91461358, 23907383 ####[address] [address]Ugnfnvkqr [Mass/Vol]0.7 mg/dLNormal0.0-1.1FWestern [facility] Hospital Comment on above:Performed By: #### 8152193, 8881277, 7191023, 16535857, 79206425 ####[address] [address]Nmxrmsb [Mass/Vol]9.6 mg/dLNormal8.9-11.1FWestern Reserve HospitalComment on above:Performed By: #### 3269779, 0281240, 3192901, 44929261, 27151177 ####[address] [place] [address] Chloride [Moles/Vol]106 mmol/HUxdzff554-614JwybyhMagruder HospitalComment on above:Performed By: #### 7904431, 6357973, 5638495, 18989560, 90659612 ####[address] [place] [address]DT2 [Moles/Vol]27 mmol/OQqmerw48-20RrgovsMagruder HospitalComment on above: Performed By: #### 2266160, 6497934, 0903328, 33363717, 35024846 ####[address] [address]Xolcagsxlz [Mass/Vol]0.8 mg/dLNormal0.5-1.3FWestern Reserve HospitalComment on above: Performed By: #### 9516897, 4182226, 3286651, 07260541, 12737592 ####[address] [address]Sainajlc (S) [Mass/Vol]3.0 g/dLNormal1.4-4.0[facility]uder HospitalComment on above: Performed By: #### 8440874, 8872587, 7956494, 81010231, 94701662 ####[address] [address]Igupwbv [Mass/Vol]89 mg/aSNgmzuz85-534EcbqphMagruder HospitalComment on above: Performed By: #### 6743781, 3934830, 9546558, 31559438, 99835920 ####[address] [address]Lnxhyhucv [Moles/Vol]4.3 mmol/LNormal3.5-5.3FWestern Reserve HospitalComment on above: Performed By: #### 0119469, 9964443, 2745880, 88992955, 26418469 ####[address] [address]Bgyrciq [Mass/Vol]7.5 g/dLNormal6.0-7.8[facility]uder HospitalComment on above: Performed By: #### 2227700, 8712819, 8963050, 49477915, 57290565 ####[address] [address]Vxlpkb [Moles/Vol]141 mmol/OIgmpgz790-337JhnvurMagruder HospitalComment on above: Performed By: #### 2227637, 1471226, 4485769, 65646343, 91374369 ####[facility] [address] [place], [place] [address]Pcjk nitrogen [Mass/Vol]20 mg/dLNormal5-21Magruder HospitalComment on above: Performed By: #### 0783745, 5637054, 5925868, 73174775, 13407406 ####[facility] [address] [place], [place] [address]Etri nitrogen/Creatinine [Mass ratio]25 No VxiqmShxi76-28CphvavMagruder Hospital Comment on above:Performed By: #### 4688528, 3384167, 0020940, 03195265, 87810604 ####[facility] [address] [place], [place] [address]Snbuaj Medicine Office/Clinic Noteon 31-83-1752Ybrafi Medicine Office/Clinic NoteChief Complaint 122 HPI Staff Teresita is a 63 year old female presenting for 6 month follow up HTN & MS Recent [facility] 10/12 cut lower right leg on [...] WEEKLY, # 12 EA, Refills(s) 0, Pharmacy: [facility], 165.1, cm, 10/19/23 9:50:00 EDT, Height/Length Dosing atropine-diphenoxylate, 1 tab(s), Oral, BID Diarrhea, 60 tab(s), Refill(s) 1, prn constipation, [facility], 165.1, cm, 10/19/23 9:50:00 EDT, Height/Length Dosing levothyroxine, 75 mcg, Oral, Daily, # 90 tab(s), Refills(s) 1, Pharmacy: [facility], 165.1, cm, 10/19/23 9:50:00 EDT, Height/Length Dosing metoprolol, 25 mg = 1 tab(s), Oral, Daily, # 90 tab(s), Refills(s) 1, Pharmacy: [facility], 165.1, cm, 10/19/23 9:50:00 EDT, Height/Length [...] Known Medication Allergies Socia (more content not included)...Genesis HospitalComment on above:Result Comment: Electronically Signed By: Clay DANIELS, Erasto Turcios.br\Date and Time Signed: 10/19/23 10:27 EDTLipid Panelon 42-65-9003Smpdajckblz [Mass/Vol]160 mg/dWUxwwgp986-357VsfpkyMagruder HospitalComment on above:Performed By: #### 8908615, 2508876, 1152013, 72799726, 67165533 ####[facility] [address] [place], [place] [address]Yfbjsqqfhsu in HDL [Mass/Vol] 45 mg/dLInvalid Interpretation CodeMagruder HospitalComment on above: Result Comment: '>= 60 LOW RISK' '<= 40 HIGH RISK'Performed By: #### 5704784, 2367670, 8536829, 03537235, 41005913 ####[facility] [address] [place], [place] [address]Cwtivmwctke in LDL [Mass/Vol]106 mg/dLNormal<=129Mag[facility]uder HospitalComment on above:Performed By: #### 8280846, 5533940, 9166989, 93736077, 56578291 ####[facility] [address] [place], [place] [address]Epnnhgmnwja in VLDL [Mass/Vol]15 mg/dLNormal7-40[facility] Comment on above:Performed By: #### 4668589, 8218513, 0693698, 66475287, 01932047 ####[facility] [address] [place], [place] [address]Otxjldjyfolq [Mass/Vol]77 mg/dLNormal<=149[facility] Comment on above:Performed By: #### 8184561, 3186632, 8163550, 15196082, 79668650 ####[facility] [address] [place], [place] [address]HXV With T4fr Reflexon 20-46-6873YSK Qn1.59 m[IU]/LNormal0.34-5.60[facility] HospitalComment on above:Performed By: #### 1695490, 3353131, 5707494, 42258447, 04098777 ####[facility] [address] [place], [place] [address]oYJHtq 35-43-2635eJVN98 mL/min/1.73 w6Tnqztz>=59 [facility] HospitalComment on above:Order Comment: Order added by Discern Expert.Performed By: #### 1318735, 5493374, 5610082, 91125193, 05879097 ####[facility] [address] [place], [place] [address]N[place] Note-Physicianon 50-30-9631MV Note-Physician [id number]#1.00TIFFGenesis HospitalRAD - MRI Reporton [id number] - MRI Report [id number]#1.00TIFUpper Valley Medical CenterRAD - MRI [id number]#1.00TIFNoal Magruder HospitalMR CERVICAL SPINE WO/W CONon 43-61-0097[place] [address] Magnetic Resonance Report Signed Patient: Teresita Baker MR#: [id number] : 1960 Acct:[id number] Age/Sex: 63 / F ADM Date: 09/15/23 Loc: MRI Attending Dr: Celeste Leal NP Ordering Physician: Celeste Leal NP Date of Service: 09/15/23 Procedure(s): MR cervical spine wo/w con Accession Number(s): [id number] cc: Celeste Leal [employer]ELOPER; ERASTO FAY [address] [address] Patient Name: TERESITA BAKER MRN: [id number] date: 1960 Sex: F Assigned Patient Location: MRI Current Patient Location: MRI Accession/Order Number: [id number] Exam Date: 09/15/2023 12:45 Report Date: 09/15/2023 15:25 At the request of: CELESTE GILLMOR Procedure: MR cervical spine wo/w con EXAM: MR cervical spine wo/w con CLINICAL INDICATION: multiple sclerosis G35 COMPARISON: MRI cervical spine 10/13/2021. TECHNIQUE/PROTOCOL: Standard protocol cervical spine pre and post contrast MRI performed. FINDINGS: Spinal Cord: Normal in caliber. The ill-defined scattered hyperintense T2/STIR signal in the cord from C2 to C5 has not substantially changed since 10/13/2021. No abnormal cord enhancement or discrete new [...] herniation. No high-grade spinal canal or foraminal narrowing. C3-C4: Disc osteophyte complex effaces the ventral thecal sac and flattens the ventral spinal cord surface. Moderate spinal canal narrowing. Advanced bilateral foraminal narrowing is contributed to by uncovertebral and facet joint hypertrophy. C4-C5: Slight disc osteophyte complex contacts the left ventral spinal cord surface. Mild spinal canal narrowing. Mild right and advanced left foraminal narrowing is contributed to by [...] right and advanced left foraminal narrowing is contributed to by uncovertebral and facet joint hypertrophy. C7-T1: No disc bulge or herniation. No high-grade spinal canal or foraminal narrowing. MR/MR cervical spine wo/w con IMPRESSION: 1. The ill-defined scattered hyperintense T2/STIR signal in the cord from C2 to C5 has not substantially changed since 10/13/2021. No abnormal cord enhancement or discrete new cord signal abnormality. 2. Multilevel spondylotic changes without high-grade spinal canal narrowing at any cervical level. 3. Spinal canal narrowing is at most moderate at C3-C4. 4. Foraminal narrowing is advanced bilaterally at C3-C4 as well as on the left at C4-C5 and C6-C7, contributed to by uncovertebral and facet hypertrophy. Electronically authenticated by: SANDRA MCDONALD Date: 09/15/2023 15:25 Dictated By: Sandra Mcdonald M.D. Signed By: 09/15/23 1528 DD/ 1525 TD/TT: Senior Research Fellow:TBHRadiology, Radiologist, MD - 09/15/2023 [place] [address] Magnetic Resonance Report Signed Patient: Teresita Baker MR#: [id number] : 1960 Acct:[id number] Age/Sex: 63 / F ADM Date: 09/15/23 Loc: MRI Attending Dr: Celeste Leal NP Ordering Physician: Celeste Leal NP Date of Service: 09/15/23 Procedure(s): MR cervical spine wo/w con Accession Number(s): [id number] cc: Celeste Leal NP; ERASTO FAY [address] [address] Patient Name: TERESITA BAKER MRN: [facility]:[id number] date: 1960 Sex: F Assigned Patient Location: MRI Current Patient Location: MRI Accession/Order Number: [id number] Exam Date: 09/15/2023 12:45 Report Date: 09/15/2023 15:25 At the request of: CELESTE LEAL Procedure: MR cervical spine wo/w con EXAM: MR cervical spine wo/w con CLINICAL INDICATION: multiple sclerosis G35 COMPARISON: MRI cervical spine 10/13/2021. TECHNIQUE/PROTOCOL: Standard protocol cervical spine pre and post contrast MRI performed. FINDINGS: Spinal Cord: Normal in caliber. The ill-defined scattered hyperintense T2/STIR signal in the cord from C2 to C5 has not substantially changed since 10/13/2021. No abnormal cord enhancement or discrete new [...] herniation. No high-grade spinal canal or foraminal narrowing. C3-C4: Disc osteophyte complex effaces the ventral thecal sac and flattens the ventral spinal cord surface. Moderate spinal canal narrowing. Advanced bilateral foraminal narrowing is contributed to by uncovertebral and facet joint hypertrophy. C4-C5: Slight disc osteophyte complex contacts the left ventral spinal cord surface. Mild spinal canal narrowing. Mild right and advanced left foraminal narrowing is contributed to by [...] right and advanced left foraminal narrowing is contributed to by uncovertebral and facet joint hypertrophy. C7-T1: No disc bulge or herniation. No high-grade spinal canal or foraminal narrowing. MR/MR cervical spine wo/w con IMPRESSION: 1. The ill-defined scattered hyperintense T2/STIR signal in the cord from C2 to C5 has not substantially changed since 10/13/2021. No abnormal cord enhancement or discrete new cord signal abnormality. 2. Multilevel spondylotic changes without high-grade spinal canal narrowing at any cervical level. 3. Spinal canal narrowing is at most moderate at C3-C4. 4. Foraminal narrowing is advanced bilaterally at C3-C4 as well as on the left at C4-C5 and C6-C7, contributed to by uncovertebral and facet hypertrophy. Electronically authenticated by: SANDRA MCDONALD Date: 09/15/2023 15:25 Dictated By: Sandra Mcdonald M.D. Signed By: 09/15/23 1528 DD/ 1525 TD/TT: Senior Research Fellow: [facility] CenterRadiology Study observation (narrative)[facility] CERVICAL SPINE WO/W CONOrdered By: Radiologist Radiology on 58-20-8589VISHResearch Medical Center Work Phone: I HEAD/BRAIN WO/W CONTRon 05-69-1408[place] [address] Magnetic Resonance Report Signed Patient: Teresita Baker MR#: [id number] : 1960 Acct:[id number] Age/Sex: 63 / F ADM Date: 09/15/23 Loc: MRI Attending Dr: Celeste Leal NP Ordering Physician: Celeste Leal NP Date of Service: 09/15/23 Procedure(s): MR head/brain wo/w con Accession Number(s): [id number] cc: Celeste Leal LEAD SHAREPOINT DEVELOPER; ERASTO FAY [place] [address] Patient Name: TERESITA BAKER MRN: [id number] date: 1960 Sex: F Assigned Patient Location: MRI Current Patient Location: MRI Accession/Order Number: [id number] Exam Date: 09/15/2023 12:45 Report Date: 09/15/2023 15:08 At the request of: CELESTE LEAL Procedure: MR head/brain wo/w con EXAM: MR head/brain wo/w con CLINICAL INDICATION: multiple sclerosis G35 COMPARISON: MRI brain 10/13/2021. TECHNIQUE/PROTOCOL: Standard pre and postcontrast MS protocol brain MRI performed. CONTRAST: 15 mL of Dotarem. FINDINGS: Multiple nonenhancing supratentorial hyperintense T2/FLAIR periventricular and subcortical white matter foci have not substantially changed in size, number, or signal characteristics since 10/13/2021. Several of these demonstrates hypointense T1 signal. No new foci or interval corpus callosum volume loss. No restricted diffusion, extra-axial fluid collection, hydrocephalus, midline shift, or other mass effect. Intracranial flow voids are maintained. Unchanged mild to moderate symmetric global volume loss without lobar predominance. Commensurate ventricular system caliber prominence. No abnormal leptomeningeal or dural enhancement. Normal marrow signal. No soft tissue abnormalities. Paranasal sinuses and mastoid air cells are well-aerated. MR/MR head/brain wo/w con IMPRESSION: Multiple nonenhancing supratentorial hyperintense T2/FLAIR white matter foci, in keeping with history of multiple sclerosis, have not substantially changed since 10/13/2021. No new foci, restricted diffusion, or abnormal intracranial enhancement. Electronically authenticated by: SANDRA MCDONALD Date: 09/15/2023 15:08 Dictated By: Sandra Mcdonald M.D. Signed By: 09/15/23 1510 DD/ 1508 TD/TT: Senior Research Fellow:TBHRadiology, Radiologist, MD - 09/15/2023 [place] [address] Magnetic Resonance Report Signed Patient: Teresita Baker MR#: [id number] : 1960 Acct:[id number] Age/Sex: 63 / F ADM Date: 09/15/23 Loc: MRI Attending Dr: Celeste Leal NP Ordering Physician: Celeste Leal NP Date of Service: 09/15/23 Procedure(s): MR head/brain wo/w con Accession Number(s): [id number] cc: Celeste Leal NP; ERASTO FAY [address] [place] [id number] Patient Name: TERESITA BAKER MRN: [id number] date: 1960 Sex: F Assigned Patient Location: MRI Current Patient Location: MRI Accession/Order Number: [id number] Exam Date: 09/15/2023 12:45 Report Date: 09/15/2023 15:08 At the request of: CELESTE LEAL Procedure: MR head/brain wo/w con EXAM: MR head/brain wo/w con CLINICAL INDICATION: multiple sclerosis G35 COMPARISON: MRI brain 10/13/2021. TECHNIQUE/PROTOCOL: Standard pre and postcontrast MS protocol brain MRI performed. CONTRAST: 15 mL of Dotarem. FINDINGS: Multiple nonenhancing supratentorial hyperintense T2/FLAIR periventricular and subcortical white matter foci have not substantially changed in size, number, or signal characteristics since 10/13/2021. Several of these demonstrates hypointense T1 signal. No new foci or interval corpus callosum volume loss. No restricted diffusion, extra-axial fluid collection, hydrocephalus, midline shift, or other mass effect. Intracranial flow voids are maintained. Unchanged mild to moderate symmetric global volume loss without lobar predominance. Commensurate ventricular system caliber prominence. No abnormal leptomeningeal or dural enhancement. Normal marrow signal. No soft tissue abnormalities. Paranasal sinuses and mastoid air cells are well-aerated. MR/MR head/brain wo/w con IMPRESSION: Multiple nonenhancing supratentorial hyperintense T2/FLAIR white matter foci, in keeping with history of multiple sclerosis, have not substantially changed since 10/13/2021. No new foci, restricted diffusion, or abnormal intracranial enhancement. Electronically authenticated by: SANDRA MCDONALD Date: 09/15/2023 15:08 Dictated By: Sandra Mcdonald M.D. Signed By: 09/15/23 1511 DD/ 1508 TD/TT: Senior Research Fellow: [facility] CenterRadiology Study observation (narrative)[facility] HEAD/BRAIN WO/W CONTROrdered By: Radiologist Radiology on 38-17-3126YCPJ [employer] Work Phone: consultation Noteon 78-22-1340Jkceehgiqhsf Note [id number]#1.00TIFUpper Valley Medical CenterConsultation Noteon 22-36-4392Dvprthzpejsd Note [id number]#1.00TIFUpper Valley Medical CenterConsultation Noteon 21-77-0741Ijmxgoqfpiib Note [id number]#1.00TIFUpper Valley Medical CenterAmbulatory Visit Summaryon 00-85-9159Utfgwqvzff Visit Summary TERESITA BAKER :1960 Visit Date:04/26/2023 Ambulatory Visit Instructions Your Diagnosis HTN (hypertension) Multiple sclerosis Nonsmoker Urge incontinence Wheelchair dependent Fecal incontinence Hypothyroid Your Care Team Attending Physician - Erasto Fay MD Primary Care Physician - Erasto Fay MD This Is Your Medications List alendronate (alendronate 70 mg Tab) atropine-diphenoxylate (Lomotil 0.025 mg-2.5 mg Tab) levothyroxine (Synthroid [...] AM EDT With: Erasto Fay MD Where: [facility] Medicine Office/Clinic Noteon 94-17-1572Axijjh Medicine Office/Clinic NoteHPI Staff Teresita is a 63 year old [...] WEEKLY, # 12 EA, Refills(s) 0, Pharmacy: [facility], 165.1, cm, 04/26/23 9:00:00 EST, Height/Length Dosing atropine-diphenoxylate, 1 tab(s), Oral, BID Diarrhea, 60 tab(s), Refill(s) 1, prn constipation, [facility], 165.1, cm, 04/26/23 9:00:00 EST, Height/Length Dosing levothyroxine, 75 mcg, Oral, Daily, # 90 tab(s), Refills(s) 1, [facility], 165.1, cm, 04/26/23 9:00:00 EST, Height/Length Dosing metoprolol, 25 mg = 1 tab(s), Oral, Daily, # 90 tab(s), Refills(s) 1, Pharmacy: [facility], 165.1, cm, 04/26/23 9:00:00 [...] - Not Given Postpone due to refusal [facility] HospitalComment on above:Result Comment: Electronically Signed By: Clay DANIELS, Erasto Turcios.br\Date and Time Signed: 04/26/23 09:21 ESTRetail - Clinical Noteon 73-87-0874Gepzwr - Clinical Note [id number]#1.00TIFFGenesis HospitalRetail - Clinical [id number]#1.00TIFF [facility] HospitalI COLLIN Del Cid 06-11-0321HTK TSPINE WO W CONEXAMINATION: MRI TSPINE WO W CON HISTORY: Multiple [...] Electronically authenticated by: EDDY VIDES Date: 2021-10-17 17:03[facility] BRAIN WO W CONon 38-46-7494ZXM BRAIN WO W CONEXAMINATION: MRI BRAIN WO W CON HISTORY: Multiple [...] Electronically authenticated by: FERNANDO MARTINEZ Date: 2021-10-13 15:00[facility] HospitalI CSPINE WO W CONon 41-68-7308SQK CSPINE WO W CONEXAMINATION: MRI CSPINE WO W CON HISTORY: Multiple [...] Electronically authenticated by: FERNANDO MARTINEZ Date: 2021-10-13 15:20[facility] Vital Signs Date TimeVital SignValuePerforming WrlxuhinkXaxkepzq98-76-8836 12:31-0400Body .1 cmJethro Dhaliwal MD Work Phone: [facility] Medical CenterRwmjinrvuk96-93-9124 12:00-0400Body cocguw274.1 cmMukesh Martínez Other [employer] Other 05-25-2022 12:00-0400Body mass index (BMI) [Ratio] 26.62 kg/a9YhbucnMukesh Martínez Other [employer] Other 05-25-2022 12:00-0400Body .58 kgDalars Martínez Other [employer] Other Encounters Encounter DateEncounter TypeCare ProviderFacilityStart: 82-34-1219kvubdeoubvCPJ Jodi L SchwabFacility:FT FM BellevueStart: 04-13-2025 End: 86-71-1900Nfzlzemadeline Dhaliwal MD Work Phone: noms NEUROLOGYStart: 04-13-2025 End: 70-07-5515Nxwmbumadeline Dhaliwal MD Work Phone: noms NEUROLOGYStart: 04-13-2025 End: 48-46-6586Pdwaii outpatient visit 25 minutesBretila Dhaliwal MD Work Phone: noms Onida NeurologyComment on above:Multiple sclerosis (Primary Dx)Start: 04-13-2025 End: 13-61-3721kubueoedadJGYKAIJ W BAUERNot AvailableStart: 03-21-2025 End: 51-71-7537ugtxfhsvndBMX Jodi L SchwabFacility:FT FM BellevueStart: 12-18-2024 End: 51-02-0051zplmvephtoZOW Jodi L SchwabFacility:FT FM BellevueStart: 10-23-2024 End: 11-54-8656dwezihejthDqqw E. MouranyFacility:FTMCStart: 14-40-1762dscssvlygg Erasto Adam RossFacility:FT FM BellevueStart: 10-09-2024 End: 28-59-3765ldqnrtawebEwcj E. MouranyFacility:FTMCStart: 09-26-2024 End: 53-86-9741vvoaldclxrOsiygc Alex. RossFacility:FT FM BellevueStart: 08-29-2024 End: 93-17-3113xcrczjdkxdWhtrqe E. RossFacility:FT FM BellevueStart: 04-17-2024 End: 54-54-8068fnvuhiotcqFxxkkz E. RossFacility:FT FM BellevueStart: 01-18-2024 End: 70-35-3991pjqfoiitqwScrxte E. RossFacility:FT FM BellevueStart: 10-19-2023 End: 15-59-6369owuumeyghlQgypiy E. RossFacility:FTMCStart: 09-15-2023 End: 84-89-9406Pyokzrype Result EncounterAngela Elvis LEAD SHAREPOINT DEVELOPER Other Phone: noms External Department UnsolicitedStart: 09-15-2023 End: 96-73-9884Mrjpbtgwi Result EncounterAngela Kyer LEAD SHAREPOINT DEVELOPER Other Phone: NOYL External Department UnsolicitedStart: 04-26-2023 End: 80-36-4073uymdqvufweKhsnix E. RossFacility:FT BellevueStart: 12-08-2022 End: 98-96-3878vtnbjyepsgCwoiul M GillmorFacility:[facility] Centertart: 12-08-2022 End: 84-67-6318qupivatxgaRI Samuel E Ross Work Phone: [facility] Work Phone: Start: 12-08-2022 End: 34-64-4592Cpjfuubshb RecurringMD Erasto Fay Work Phone: [facility]-Physical Therapy [address] RdStart: 12-69-5566lhxanlylalLBQGWN MARCELFacility:R2Ssmlq: 11-05-2021 End: 38-05-1071wczdlmyfgwYcigdd Elskens Other [employer] Other start: 94-50-3919Pljqzt outpatient new 30 minutes Mukesh MartínezPhysicians Regional Medical Center NeurosurgeryStart: 10-17-2021 End: 88-27-1055ldhsjqysemCW DOCTOR MISCFacility:A5Ylano: 10-13-2021 End: 27-10-0193bfflvlfebaTZ DOCTOR MISCFacility:H1 Procedures DateProcedureProcedure DetailPerforming ClinicianStart: 90-90-6467HP CERVICAL SPINE WO/W CONAngekeyshawn Leal LEAD SHAREPOINT DEVELOPER Other Phone: Start: 96-77-9069TYL HEAD/BRAIN WO/W Soni Leal LEAD SHAREPOINT DEVELOPER Other Phone: Plan of Treatment DateCare ActivityDetailAuthorStart: 06-18-2025 End: 59-16-1371Ygrgkdd encounter qcpwpcucy82/05/2026 9:50 AM EST Office Visit [facility] [address] [place] [address] Jethro Dhaliwal MD [address], [place] [address] NOMAkila Matthews NeurologyStart: 04-13-2025 End: 54-37-3154YBO W Auto Differential panel - BloodCBC and differential Lab Routine Multiple sclerosis (HCC) Expected: 04/13/2025 (Approximate), Expires: 04/13/2026[facility] Work Phone: Comment on above:Expected: 04/13/2025 (Approximate), Expires: 04/13/2026Start: 04-13-2025 End: 86-35-8588Xbwjjknbkmiai metabolic 2000 panel - Serum or PlasmaComprehensive metabolic panel Lab Routine Multiple sclerosis (HCC) Expected: 04/13/2025 (Approximate), Expires: 04/13/2026N[facility] HealthcareComment on above:Expected: 04/13/2025 (Approximate), Expires: 04/13/2026Start: 04-13-2025 End: 83-16-0703Zcots[place] function 1999 panel - Serum or PlasmaHepatic function panel Lab Routine Multiple sclerosis Expected: 04/13/2025 (Approximate), Expires: 04/13/2026[facility] HealthcareComment on above:Expected: 04/13/2025 (Approximate), Expires: 04/13/2026Start: 04-13-2025 End: 07-61-8048Dbhlcptlc B core antibody, IgMHepatitis B core antibody, IgM Lab Routine Multiple sclerosis Expected: 04/13/2025 (Approximate), Expires: 04/13/2026NOMS HealthcareComment on above:Expected: 04/13/2025 (Approximate), Expires: 04/13/2026Start: 04-13-2025 End: 52-22-8028Qoyyvjsyl B virus surface Ag [Presence] in Serum or Plasma by ImmunoassayHepatitis B surface antigen Lab Routine Multiple sclerosis Expected: 04/13/2025 (Approximate), Expires: 04/13/2026[facility] HealthcareComment on above: Expected: 04/13/2025 (Approximate), Expires: 04/13/2026Start: 04-13-2025 End: 07-51-1850Hycbrpprl C virus Ab [Presence] in Serum or Plasma by Immunoassay Hepatitis C antibody Lab Routine Multiple sclerosis Expected: 04/13/2025 (Approximate), Expires: 04/13/2026[facility] HealthcareComment on above:Expected: 04/13/2025 (Approximate), Expires: 04/13/2026Start: 04-13-2025 End: 59-68-6783DDF 1/2 ANTIGEN/ANTIBODY, 4TH GEN W/RFL,SCREENINGHIV 1/2 ANTIGEN/ANTIBODY, 4TH GEN W/RFL,SCREENING Lab Routine Multiple sclerosis Expected: 04/13/2025 (Approximate), Expires: 04/13/2026[facility] HealthcareComment on above:Expected: 04/13/2025 (Approximate), Expires: 04/13/2026Start: 04-13-2025 End: 41-65-9887ELAVMRACGVD TB GOLDQUANTIFERON TB GOLD Lab Routine Multiple sclerosis (HCC) Expected: 04/13/2025 (Approximate), Expires: 04/13/2026[facility] HealthcareComment on above:Expected: 04/13/2025 (Approximate), Expires: 04/13/2026Start: 04-13-2025 End: 28-24-2075UVHZSCKB JCV(TM) AB (WITH INDEX) W/RFL INHIBITIONSTRATIFY JCV(TM) AB (WITH INDEX) W/RFL INHIBITION Lab Routine Multiple sclerosis Expected: 04/13/2025 (Approximate), Expires: 04/13/2026[facility] HealthcareComment on above: Expected: 04/13/2025 (Approximate), Expires: 04/13/2026Start: 04-13-2025 End: 94-85-7378Wleleafhb zoster antibody, IgGVaricella zoster antibody, IgG Lab Routine Multiple sclerosis Expected: 04/13/2025 (Approximate), Expires: 04/13/2026[facility] HealthcareComment on above:Expected: 04/13/2025 (Approximate), Expires: 04/13/2026Start: 04-13-2025 End: 42-33-2991Metwdvbpe zoster antibody, IgMVaricella zoster antibody, IgM Lab Routine Multiple sclerosis Expected: 04/13/2025 (Approximate), Expires: 04/13/2026[facility] HealthcareComment on above:Expected: 04/13/2025 (Approximate), Expires: 04/13/2026Start: 04-13-2025 End: 83-78-7441Zoenvyz encounter procedureNOValley Presbyterian Hospital NeurologyComment on above:Arrived Payers DatePayer CategoryPayerPolicy [id number] Health InsuranceCARESOURCE MEDICAID .[id number] 2024[place]icaidAM[place] [place] [id number]-bnm [id number] 2.16.840.1.341663.3.57[id number] 2.16.840.1.005374.3.57[id number] 2.16.840.1.726202.3.57[id number] 2.16.840.1.872114.3.57[id number] 2.16.840.1.678714.3.57[id number] 2.16.840.1.676578.3.57[id number] 2.16.840.1.239604.3.57[id number] 2.16.840.1.643045.3.57[id number] 2.16.840.1.156699.3.57[id number] 2.16.840.1.344454.3.579.[id number] 2.16.840.1.540041.3.57[id number] 2.16.840.1.229229.3.57[id number] 2.16.840.1.547570.3.57[id number] 2.16.840.1.708140.3.579.[id number] 2.16.840.1.988601.3.579.2.2[id number] 2.16.840.1.862362.3.57[id number] 2.16.840.1.493524.3.57[id number] 2.16.840.1.330156.3.57[id number] 2.16.840.1.574119.3.579.2.1259 [id number] 2.[id number] 2.16.840.1.996820.3.579.2.531 Social History DateTypeDetailFacilityUnknown if ever smokedSheppard Afb [employer] Other start: 11-11-2023 End: 76-05-8893Agv Assigned At [facility] [employer] Other Start: 86-88-6408Iyi Assigned At [facility] LimaTobacc smoking status NHISTobacco smoking consumption unknownNOMS HealthcareStart: 11-11-2023 End: 51-29-2267Qibpzbq of Social functionNOMS HealthcareStart: 22-77-0185Sup assigned at birthNot on fileNOMS HealthcareStart: 54-19-7751QfoTmjbcjLHMC HealthcareStart: 43-55-7189Bdkdxwp smoking status NHISNever smoked tobaccoNOMS HealthcareStart: 51-45-1072Iqwzbhs use and exposureSmokeless tobacco non-user [facility] HealthcareStart: 11-11-2023 End: 45-44-7483Injfwcxce beverage intakeLifetime non-drinker (finding)[facility] History of Present illness Narrative 04-13-2025 Note Date & CncgAxibKqmcfibf74-45-3907 History of Present illness Narrative* Jethro Dhaliwal MD - 04/13/2025 12:20 PM EDT [...] in all four extremities, including at least director reactor projects, finger abductors, biceps, triceps, deltoid, toe flexors [...] convenience, possibly at a local pharmacy like [facility]. This clinical note was created utilizing [employer] documentation system. All information has beenthoroughly reviewed, corrected as necessary, and authenticated by the provider to ensure accuracy and completeness. On occasion, [employer] documentation system erroneously drops words or replaces aspoken word with a similar sounding word. Please notify with any questions or concerns regarding this clinical note. 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 [employer] Other Evaluation note Note Date & TypeNoteFacilityEvaluation noteNo assessment information available [facility] Work Phone: Evaluation note Note Date & TypeNoteFacilityEvaluation note* Diagnosis Multiple sclerosis- Primary documented in this encounter [facility] History general Narrative - Reported Note Date & TypeNoteFacilityHistory general Narrative - Reported* Type Description Date Medical History multiple sclerosis Medical HistoryLYMPHEDEMASurgical Historycyst removalHospitalization HistoryMS [employer] Other Summary Purpose Family History No Family History Records FoundNo Family History Records FoundNo Family History Records FoundNo Family History Records FoundNo Family History Records FoundNo Family History Records FoundNo Family History Records FoundNo Family History Records FoundNo Family History Records Found Advance Directives Advance Directive Response Recorded Date/ Time Advance Directives No February 9:51am Chief Complaint and Reason for Visit Chief Complaint MK only;debility Additional Source Comments REASON FOR VISIT (unrecogniz ed section and content) Referred Celeste Mendez rojelio [employer] INFORMATION SOURCE (unrecogn ized section and content) DATE CREATED AUTHOR 09/24/2022 [facility] DATE CREATED AUTHOR AUTHOR'S ORGANIZ ATION 12/21/2022 [facility] DATE CREATED AUTHOR AUTHOR'S ORGANIZ ATION 04/18/2024 [facility] DATE CREATED AUTHOR AUTHOR'S ORGANIZ ATION 09/01/2024 [facility] DATE CREATED AUTHOR AUTHOR'S ORGANIZ ATION 12/21/2024 [facility] DATE CREATED AUTHOR AUTHOR'S ORGANIZ ATION 03/23/2025 [facility] DATE CREATED AUTHOR AUTHOR'S ORGANIZ ATION 04/15/2025 [facility] EPIC Care Teams (unrecognized sec tion and content) Team Status: Active Member Role Status Dates Erasto Fay MD Primary Care Provider Active Team Status: Inactive Member Role Status Dates Celeste Leal APRN Attending Provider Active Raoul Aguirre Care ProviderActiveTeam MemberRelationshipSpecialty Start DateEnd Date Erasto Fay MD PCP - [facility]08/30/2410 Erasto Fay MD [address] [place] [address] PCP - [facility]04/25/24Team MemberRelationshipSpecialtyStart Date End Date Erasto Fay MD [address] [place] [address] PCP - [facility]04/25/24Team MemberRelationshipSpecialtyStart Date End Date Erasto Fay MD [address] [place] [address] PCP - GeneralFamily Vymbjcyp29/12/24 Goals (unrecognized section and content) Goals may [...] BE BASED ON THE PRIMARY CLINICAL RECORDS. [employer] provides no warranty or guarantee of the accuracy or completeness of information in this document.
[2025-04-23 11:03] LABS: Hematocrit 43.1 % (36.0-48.0); Hemoglobin 13.8 g/dL (12.0-16.0); Immature Granulocytes Abs Auto 0.01 10^3/uL (0.00-0.03); Immature Granulocytes Pct Auto 0.2 % (0.0-0.5); Lymphocytes Absolute Auto 1.7 10^3/uL (1.2-3.8); Mean Corpuscular HGB Conc 32.0 g/dL (29.9-35.2); Mean Corpuscular Hemoglobin 28.4 pg (26.7-34.0); Mean Corpuscular Volume 88.7 fL (81.0-99.0); Platelet Count 228 10^3/uL (150-450); Red Blood Count 4.86 10^6/uL (4.20-5.40); White Blood Count 5.6 10^3/uL (4.0-11.0)
[2025-04-23 12:22] LABS: Alanine Aminotransferase 23 U/L (14-59); Albumin Globulin Ratio 1.1; Albumin Level 3.7 g/dL (3.4-5.0); Alkaline Phosphatase 93 U/L (46-116); Anion Gap 12.3; Aspartate Amino Transferase 14 U/L (15-37); Blood Urea Nitrogen 11.0 mg/dL (7.0-18.0); Calcium 9.3 mg/dL (8.5-10.1); Carbon Dioxide 28.9 mmol/L (21.0-32.0); Chloride 104 mmol/L (98-107); Estimated GFR (African America >60 (>=60 mL/min/1.73m^2); Estimated GFR (Non-African Ame >60 (>=60 mL/min/1.73m^2); Globulin 3.5 g/dL; Glucose 83 mg/dL (74-106); Potassium 4.2 mmol/L (3.5-5.1); Sodium 141 mmol/L (136-145); Total Protein 7.2 g/dL (6.4-8.2)
[2025-04-24 06:09] LABS: Varicella-Zoster V Ab, IgG Reactive (Non Reactive)
== END 2025-04-23 10:31 | disposition home or self-care (01) ==
LOC: LAB 10:30
PROVIDERS: PCP Nurse Practitioner; Visit Provider Psychiatry & Neurology Neurology
DX: G35.D Multiple sclerosis, unspecified (principal)
CPT/HCPCS: 36415; 80053; 82248; 85025; 86480; 86787; 86803; 87340; 87389